=== PATIENT | male | born 1980 | race African-American/Black ===

== ENCOUNTER → 2017-12-05 15:46 | Outpatient (CLI) | payer OTHER, SELFPAY | PROVIDERS: Family Provider Family Medicine; PCP Family Medicine; Visit Provider Otolaryngology Otolaryngology/Facial Plastic Surgery | DX: J32.9 Chronic sinusitis, unspecified (principal) | CPT/HCPCS: 87070; 87077; 87186; 87205 ==

== ENCOUNTER → 2018-03-12 14:40 | Outpatient (CLI) | payer OTHER, SELFPAY ==
--- NOTE | 2018-03-12 14:40 | DT_ITS ---
This patient was seen during an EMR downtime March 11, 2018 - March 18, 2018. This patient may have a combination of paper and electronic documentation or all paper documentation. All documentation is viewable within the e-chart portion of [employer] for each patient visit.
--- NOTE | 2018-03-12 16:40 | CT_ITS ---
STUDY: CT MAXILLOFACIAL SINUSES REASON FOR EXAM: Male, 37 years old. Chronic bilateral sinus disease. RADIATION DOSAGE (If Supplied By Facility): CTDIvol = ( 33.06 ) mGy, DLP = ( 788.40 ) mGycm TECHNIQUE: The patient was scanned in a multi detector CT scanner. High resolution axial imaging was performed without the administration of intravenous contrast material. Sagittal and coronal images were reconstructed. Individualized dose optimization techniques were used for this CT. COMPARISON: None. FINDINGS: FRONTAL SINUSES: Normal aeration, without mucosal inflammatory disease. ETHMOIDAL SINUSES: There is opacification of right-sided ethmoid sinuses. Left-sided ethmoid sinuses appear to be clear. MAXILLARY SINUSES: There is right maxillary mucous retention cyst and/or polyp. There is mild right maxillary mucoperiosteal thickening. There is a small left maxillary mucous retention cyst. SPHENOIDAL SINUSES: Normal aeration, without mucosal inflammatory disease. There is occlusion of the right ostiomeatal complex. The left ostomy or complex is patent. There are selena bullosa of the bilateral turbinates. There is opacification of the right selena bullosa. Normal bilateral inferior turbinates. Normal midline nasal septum. There is patency of the bilateral nasal airways. The visualized osseous structures are normal. The visualized bilateral orbital contents are normal. CT/Sinus/Facial Bone IMPRESSION: Mild paranasal sinus disease, as described. Electronically Signed: Angela Hull MD at 10:50 EDT , Service support ,
== END ==
PROVIDERS: Family Provider Family Medicine; PCP Family Medicine; Visit Provider Otolaryngology Otolaryngology/Facial Plastic Surgery
DX: J32.9 Chronic sinusitis, unspecified (principal)
CPT/HCPCS: 70486

== ENCOUNTER → 2018-03-12 15:42 | Outpatient (CLI) | payer OTHER, SELFPAY ==
--- NOTE | 2018-03-12 15:42 | DT_ITS ---
This patient was seen during an EMR downtime March 11, 2018 - March 18, 2018. This patient may have a combination of paper and electronic documentation or all paper documentation. All documentation is viewable within the e-chart portion of [employer] for each patient visit.
== END ==
PROVIDERS: Family Provider Family Medicine; PCP Family Medicine; Visit Provider Otolaryngology Otolaryngology/Facial Plastic Surgery
DX: R69 Illness, unspecified (principal)

== ENCOUNTER → 2018-03-18 12:06 | Outpatient (CLI) | payer OTHER, SELFPAY ==
--- NOTE | 2018-03-18 12:06 | DT_ITS ---
This patient was seen during an EMR downtime March 11, 2018 - March 18, 2018. This patient may have a combination of paper and electronic documentation or all paper documentation. All documentation is viewable within the e-chart portion of [employer] for each patient visit.
[2018-03-18 12:54] LABS: Absolute Lymphocyte Count 3.02 X10^3/ul (0.83-4.51); Absolute Neutrophil Count 3.2 X10^3/uL (2.0-7.7); Basophil# 0.05 X10^3/uL; Basophil% 0.7 % (0-1); Eosinophil# 0.18 X10^3/uL; Eosinophils% 2.5 % (0-5); Hematocrit 45.5 % (40-54); Hemoglobin 15.6 g/dl (13.0-16.5); Lymphocyte # 3.02 X10^3/ul (4.0); Lymphocyte % 42.6 % (19-41); Mean Corp Hgb Conc 34.3 g/gl (32-36); Mean Corpuscular Hgb 34.1 pg (27.0-32.0); Mean Corpuscular Volume 99.3 fL (80-94); Mean Platelet Vol. 9.8 fl (6.2-12.0); Monocyte# 0.62 X10^3/uL; Monocyte% 8.7 % (0-10); Neutrophil % 45.2 % (47-70); Platelet Count 289 K/mm3 (150-450); RBC Distribution Width SD 43.5 fl (35.1-43.9); Red Blood Count 4.58 M/mm3 (4.6-6.2); White Blood Count 7.1 K/mm3 (4.4-11.0)
[2018-03-18 13:02] LABS: POSITIVE COUNT NO; POSITIVE DIFFERENTIAL NO; POSITIVE MORPHOLOGY NO
[2018-03-18 13:27] LABS: ALB/GLOB Ratio 0.8 RATIO (0.9-2.4); AST(SGOT) 24 U/L (15-37); Alanine Aminotransfer ALT/SGPT 27 U/L (16-61); Albumin, Serum 3.5 g/dL (3.2-5.0); Alkaline Phosphatase 73 U/L (45-117); Anion Gap 6 (5-15); BUN 12 mg/dL (7-18); BUN/Creat Ratio 10.5 RATIO (10-20); Calcium,Total 8.5 mg/dL (8.5-10.1); Chloride 106 mmol/L (98-107); Cholesterol 166 mg/dL (200); Creatinine, Serum 1.14 mg/dL (0.70-1.30); EST Glomerular Filtration Rate 77 mL/min (>60); Est Glom Filt Rate - Afr Amer 93 mL/min (>60); Globulin 4.3 g/dL (2.2-4.2); Glucose 95 mg/dL (74-106); High Density Lipoprotein 52 mg/dL; Potassium 4.1 mmol/L (3.5-5.1); Protein, Total 7.8 g/dL (6.4-8.2); Sodium Level 141 mmol/L (136-145); Triglycerides 87 mg/dL; Very Low Density Lipoprotein 17 mg/dL (5-40)
== END ==
PROVIDERS: Family Provider Internal Medicine; PCP Internal Medicine; Visit Provider Internal Medicine
DX: I10 Essential (primary) hypertension (principal)
CPT/HCPCS: 36415; 80053; 80061; 85025

== ENCOUNTER → 2018-03-29 12:32 | Outpatient (CLI) | payer OTHER, SELFPAY ==
[2018-03-29 13:54] LABS: Protein, Urine (Random) 13.5 mg/dL (<11.9); Protein:Creat Ratio 69 mg/g CRE (0-200)
[2018-03-29 14:23] LABS: Albumin, Serum 3.4 g/dL (3.2-5.0); BUN 12 mg/dL (7-18); BUN/Creat Ratio 10.2 RATIO (10-20); Calcium,Total 8.4 mg/dL (8.5-10.1); Chloride 105 mmol/L (98-107); Creatinine, Serum 1.18 mg/dL (0.70-1.30); EST Glomerular Filtration Rate 74 mL/min (>60); Est Glom Filt Rate - Afr Amer 89 mL/min (>60); Glucose 77 mg/dL (74-106); Phosphorus 3.5 mg/dL (2.5-4.9); Potassium 3.9 mmol/L (3.5-5.1); Sodium Level 137 mmol/L (136-145)
== END ==
PROVIDERS: Family Provider Internal Medicine; PCP Internal Medicine; Visit Provider Internal Medicine Nephrology
DX: N18.2 Chronic kidney disease, stage 2 (mild) (principal)
CPT/HCPCS: 36415; 80069; 82570; 84156

== ENCOUNTER 2018-04-07 13:54 | Emergency (ER) | payer OTHER, SELFPAY ==
[2018-04-07 13:55] VITALS: BP 152/84; PULSE 61; RESP 18; TEMP 36.6; O2SAT 98; BMI 39.9
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
[2018-04-07 15:55] VITALS: BP 142/86; PULSE 88; RESP 16; O2SAT 98
== END 2018-04-07 15:57 | disposition home or self-care (01) ==
PROVIDERS: Emergency Provider Emergency Medicine; Family Provider Internal Medicine; PCP Internal Medicine
DX: S16.1XXA Strain of muscle, fascia and tendon at neck level, initial encounter (principal); S80.01XA Contusion of right knee, initial encounter; Q74.1 Congenital malformation of knee; V49.49XA Driver injured in collision with other motor vehicles in traffic accident, initial encounter; Y93.9 Activity, unspecified; Y92.9 Unspecified place or not applicable; I10 Essential (primary) hypertension; F32.9 Major depressive disorder, single episode, unspecified; F41.9 Anxiety disorder, unspecified; B20 Human immunodeficiency virus [HIV] disease; Z87.19 Personal history of other diseases of the digestive system; Z79.899 Other long term (current) drug therapy
CPT/HCPCS: 71046; 72040; 73564; 99282

== ENCOUNTER → 2018-05-09 12:04 | Outpatient (CLI) | payer OTHER, SELFPAY ==
[2018-05-09 12:33] LABS: Hematocrit 43.9 % (40-54); Hemoglobin 14.7 g/dl (13.0-16.5); Mean Corp Hgb Conc 33.5 g/gl (32-36); Mean Corpuscular Hgb 33.8 pg (27.0-32.0); Mean Corpuscular Volume 100.9 fL (80-94); Mean Platelet Vol. 9.7 fl (6.2-12.0); Platelet Count 259 K/mm3 (150-450); RBC Distribution Width CV 12.4 % (11.6-14.6); RBC Distribution Width SD 45.3 fl (35.1-43.9); Red Blood Count 4.35 M/mm3 (4.6-6.2); White Blood Count 6.4 K/mm3 (4.4-11.0)
[2018-05-09 12:34] LABS: Scan Indicated on CBC? Y/N NO
[2018-05-09 13:02] LABS: AST(SGOT) 26 U/L (15-37); Alanine Aminotransfer ALT/SGPT 32 U/L (16-61); Albumin, Serum 3.7 g/dL (3.2-5.0); Alkaline Phosphatase 74 U/L (45-117); Anion Gap 5 (5-15); BUN 14 mg/dL (7-18); BUN/Creat Ratio 10.8 RATIO (10-20); Bilirubin, Direct 0.13 mg/dL (0.00-0.30); Calcium,Total 8.6 mg/dL (8.5-10.1); Chloride 106 mmol/L (98-107); Cholesterol 161 mg/dL (200); EST Glomerular Filtration Rate 66 mL/min (>60); Est Glom Filt Rate - Afr Amer 80 mL/min (>60); Globulin 4.1 g/dL (2.2-4.2); Glucose 97 mg/dL (74-106); High Density Lipoprotein 55 mg/dL; Protein, Total 7.8 g/dL (6.4-8.2); Sodium Level 140 mmol/L (136-145); Triglycerides 84 mg/dL; Very Low Density Lipoprotein 17 mg/dL (5-40)
[2018-05-09 15:22] LABS: Chlamydia Trachomatis by PCR Negative (Negative); Neisserai gonorrhoeae by PCR Negative (Negative); Probe Check PASS; Sample Adequacy Control PASS; Specimen Processing Control PASS
[2018-05-10 20:09] LABS: Absolute CD4 Helper 587 /uL (359-1519); Basophils (Absolute) 0 x10E3/uL (0.0-0.2); Eosinophils 3 % (Not Estab.); Eosinophils (Absolute) 0.2 x10E3/uL (0.0-0.4); Hemoglobin 14.7 g/dL (13.0-17.7); Immature Granulocytes 0 % (Not Estab.); Lymphs 36 % (Not Estab.); Lymphs (Absolute) 2.3 x10E3/uL (0.7-3.1); MCH 33.9 pg (26.6-33.0); MCHC 33.4 g/dL (31.5-35.7); MCV 101 fL (79-97); Monocytes 10 % (Not Estab.); Monocytes (Absolute) 0.6 x10E3/uL (0.1-0.9); Neutrophils 51 % (Not Estab.); Neutrophils (Absolute) 3.2 x10E3/uL (1.4-7.0); Percent % CD4 Pos. Lymph. 25.5 % (30.8-58.5); Platelets 292 x10E3/uL (150-379); RBC Count 4.34 x10E6/uL (4.14-5.80); RDW 12.8 % (12.3-15.4); WBC Count 6.4 x10E3/uL (3.4-10.8)
[2018-05-11 13:14] LABS: Immature Granulocytes Absolute 0 x10E3/uL (0.0-0.1)
[2018-05-13 13:39] LABS: HIV-1 RNA by PCR, Quant. < 20 copies/mL (.)
== END ==
PROVIDERS: Family Provider Internal Medicine; PCP Internal Medicine; Visit Provider Internal Medicine Infectious Disease
DX: B20 Human immunodeficiency virus [HIV] disease (principal)
CPT/HCPCS: 36415; 80048; 80061; 80076; 85027; 86361; 87491; 87536; 87591

== ENCOUNTER → 2018-07-15 10:07 | Outpatient (CLI) | payer OTHER, SELFPAY ==
--- NOTE | 2018-07-15 10:09 | RAD_ITS ---
STUDY: X-RAY - LEFT KNEE REASON FOR EXAM: Knee pain, no specific injury. TECHNIQUE: 4 view(s) of the knee. COMPARISON: None. FINDINGS: Normal visualized distal femur. Normal visualized proximal tibia and fibula. Normal proximal tibiofibular articulation. Normal medial femorotibial compartment. Normal lateral femorotibial compartment. Normal patellofemoral articulation. The soft tissue structures are unremarkable. RAD/Knee 4 or More Views IMPRESSION: Normal x-ray examination of the left knee. Electronically Signed: Rohit Avelar MD at 16:00 EDT Tel , Service support ,
== END ==
PROVIDERS: Family Provider Internal Medicine; PCP Internal Medicine; Referring Provider Physician Assistant; Visit Provider Physician Assistant
DX: M25.562 Pain in left knee (principal)
CPT/HCPCS: 73564

== ENCOUNTER 2018-08-09 07:31 | Emergency (ER) | payer OTHER, SELFPAY ==
[2018-08-09 07:33] VITALS: BP 167/103; PULSE 61; RESP 18; TEMP 35.8; O2SAT 99; BMI 39.1
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
[2018-08-09 08:19] LABS: QC Malaria Lot#/Exp Date RECORD LOT#/EXP DATE
[2018-08-09 08:58] LABS: Absolute Lymphocyte Count 1.82 X10^3/ul (0.83-4.51); Absolute Neutrophil Count 9.9 X10^3/uL (2.0-7.7); Basophil# 0.01 X10^3/uL; Basophil% 0.1 % (0-1); Eosinophil# 0.01 X10^3/uL; Eosinophils% 0.1 % (0-5); Hematocrit 45.8 % (40-54); Hemoglobin 15.3 g/dl (13.0-16.5); Lymphocyte # 1.82 X10^3/ul (4.0); Lymphocyte % 14.7 % (19-41); Mean Corp Hgb Conc 33.4 g/gl (32-36); Mean Corpuscular Hgb 33.4 pg (27.0-32.0); Mean Platelet Vol. 10.1 fl (6.2-12.0); Monocyte# 0.57 X10^3/uL; Monocyte% 4.6 % (0-10); Neutrophil # 9.87 X10^3/uL (2.7-7.7); POSITIVE COUNT NO; POSITIVE DIFFERENTIAL NO; POSITIVE MORPHOLOGY NO; Platelet Count 302 K/mm3 (150-450); RBC Distribution Width CV 12.4 % (11.6-14.6); RBC Distribution Width SD 45.4 fl (35.1-43.9); Red Blood Count 4.58 M/mm3 (4.6-6.2); White Blood Count 12.3 K/mm3 (4.4-11.0)
[2018-08-09 14:11] LABS: Malaria Blood Parasite Interp Negative (Negative)
[2018-08-09 14:16] LABS: Pathologist Review Reviewed
[2018-08-09 14:17] LABS: Malaria QC Review PASSED
== END 2018-08-09 08:20 | disposition home or self-care (01) ==
LOC: ED 07:53
PROVIDERS: Emergency Provider Emergency Medicine; Family Provider Internal Medicine; PCP Internal Medicine
DX: R61 Generalized hyperhidrosis (principal); Z20.7 Contact with and (suspected) exposure to pediculosis, acariasis and other infestations; R51 Headache; I10 Essential (primary) hypertension; B20 Human immunodeficiency virus [HIV] disease; Z79.899 Other long term (current) drug therapy; Z72.0 Tobacco use
CPT/HCPCS: 85025; 87207; 99282

== ENCOUNTER → 2018-08-30 13:42 | Outpatient (CLI) | payer OTHER, SELFPAY ==
[2018-08-09 07:33] VITALS: BMI 39.1
== END ==
PROVIDERS: Family Provider Internal Medicine; PCP Internal Medicine; Referring Provider Otolaryngology Otolaryngology/Facial Plastic Surgery; Visit Provider Otolaryngology Otolaryngology/Facial Plastic Surgery
DX: J32.9 Chronic sinusitis, unspecified (principal)
CPT/HCPCS: 87070; 87205

== ENCOUNTER → 2018-09-17 13:13 | Outpatient (CLI) | payer OTHER, SELFPAY ==
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
== END ==
PROVIDERS: Family Provider Internal Medicine; PCP Internal Medicine; Referring Provider Otolaryngology; Visit Provider Otolaryngology
DX: J32.9 Chronic sinusitis, unspecified (principal)
CPT/HCPCS: 70486

== ENCOUNTER → 2018-10-07 12:27 | Outpatient (CLI) | payer OTHER, SELFPAY ==
[2018-10-07 13:33] LABS: Protein, Urine (Random) 14.6 mg/dL (<11.9); Protein:Creat Ratio 79 mg/g CRE (0-200)
[2018-10-07 13:53] LABS: Albumin, Serum 3.5 g/dL (3.2-5.0); BUN 11 mg/dL (7-18); BUN/Creat Ratio 8.8 RATIO (10-20); Calcium,Total 8.6 mg/dL (8.5-10.1); Chloride 101 mmol/L (98-107); Creatinine, Serum 1.25 mg/dL (0.70-1.30); EST Glomerular Filtration Rate 69 mL/min (>60); Est Glom Filt Rate - Afr Amer 83 mL/min (>60); Glucose 92 mg/dL (74-106); Phosphorus 3.6 mg/dL (2.5-4.9); Potassium 3.8 mmol/L (3.5-5.1); Sodium Level 140 mmol/L (136-145)
== END ==
LOC: LAB 12:29
PROVIDERS: Family Provider Internal Medicine; PCP Internal Medicine; Referring Provider Internal Medicine Nephrology; Visit Provider Internal Medicine Nephrology
DX: N18.2 Chronic kidney disease, stage 2 (mild) (principal)
CPT/HCPCS: 36415; 80069; 82570; 84156

== ENCOUNTER → 2018-11-13 13:57 | Outpatient (CLI) | payer OTHER, SELFPAY ==
[2018-11-08 13:55] VITALS: BMI 41.2
[2018-11-13 14:25] LABS: Hematocrit 45.5 % (40-54); Hemoglobin 15.3 g/dl (13.0-16.5); Mean Corp Hgb Conc 33.6 g/gl (32-36); Mean Corpuscular Hgb 33.1 pg (27.0-32.0); Mean Corpuscular Volume 98.5 fL (80-94); Mean Platelet Vol. 9.5 fl (6.2-12.0); Platelet Count 298 K/mm3 (150-450); RBC Distribution Width CV 11.8 % (11.6-14.6); RBC Distribution Width SD 41.9 fl (35.1-43.9); Red Blood Count 4.62 M/mm3 (4.6-6.2); Scan Indicated on CBC? Y/N NO; White Blood Count 8.4 K/mm3 (4.4-11.0)
[2018-11-13 14:50] LABS: AST(SGOT) 27 U/L (15-37); Alanine Aminotransfer ALT/SGPT 38 U/L (16-61); Albumin, Serum 3.8 g/dL (3.2-5.0); Alkaline Phosphatase 68 U/L (45-117); Anion Gap 7 (5-15); BUN 13 mg/dL (7-18); BUN/Creat Ratio 10.6 RATIO (10-20); Bilirubin, Direct 0.19 mg/dL (0.00-0.30); Calcium,Total 8.9 mg/dL (8.5-10.1); Chloride 105 mmol/L (98-107); Creatinine, Serum 1.23 mg/dL (0.70-1.30); EST Glomerular Filtration Rate 70 mL/min (>60); Est Glom Filt Rate - Afr Amer 85 mL/min (>60); Glucose 101 mg/dL (74-106); Potassium 3.9 mmol/L (3.5-5.1); Protein, Total 7.8 g/dL (6.4-8.2); Sodium Level 138 mmol/L (136-145)
[2018-11-14 20:19] LABS: Absolute CD4 Helper 600 /uL (359-1519); Basophils (Absolute) 0 x10E3/uL (0.0-0.2); Eosinophils 1 % (Not Estab.); Eosinophils (Absolute) 0.1 x10E3/uL (0.0-0.4); Hematocrit 42.9 % (37.5-51.0); Hemoglobin 15.3 g/dL (13.0-17.7); Immature Granulocytes 0 % (Not Estab.); Immature Granulocytes Absolute 0 x10E3/uL (0.0-0.1); Lymphs 27 % (Not Estab.); Lymphs (Absolute) 2.5 x10E3/uL (0.7-3.1); MCH 34.1 pg (26.6-33.0); MCHC 35.7 g/dL (31.5-35.7); MCV 96 fL (79-97); Monocytes 7 % (Not Estab.); Monocytes (Absolute) 0.6 x10E3/uL (0.1-0.9); Neutrophils 65 % (Not Estab.); Neutrophils (Absolute) 6.1 x10E3/uL (1.4-7.0); Platelets 312 x10E3/uL (150-379); RBC Count 4.49 x10E6/uL (4.14-5.80); RDW 12.8 % (12.3-15.4); WBC Count 9.4 x10E3/uL (3.4-10.8)
[2018-11-14 23:34] LABS: Rapid Plasmin Reagin (RPR) NONREACTIVE (NONREACTIVE)
[2018-11-15 16:38] LABS: HIV-1 RNA by PCR, Quant. < 20 copies/mL (.)
[2018-11-15 16:55] LABS: Hep B Surface Antibodies Non Reactive (.); Hep C Antibodies <0.1 s/co ratio (0.0-0.9)
== END ==
PROVIDERS: Family Provider Internal Medicine; PCP Internal Medicine; Referring Provider Internal Medicine Infectious Disease; Visit Provider Internal Medicine Infectious Disease
DX: B20 Human immunodeficiency virus [HIV] disease (principal)
CPT/HCPCS: 36415; 80048; 80076; 85027; 86361; 86592; 86706; 86803; 87536

== ENCOUNTER → 2018-12-18 17:31 | Outpatient (CLI) | payer OTHER, SELFPAY ==
[2018-11-08 13:55] VITALS: BMI 41.2
== END ==
PROVIDERS: Family Provider Internal Medicine; PCP Internal Medicine; Referring Provider Otolaryngology Otolaryngology/Facial Plastic Surgery; Visit Provider Otolaryngology Otolaryngology/Facial Plastic Surgery
DX: J32.9 Chronic sinusitis, unspecified (principal)
CPT/HCPCS: 87070; 87205

== ENCOUNTER → 2019-03-20 | Outpatient (CLI) | payer OTHER, SELFPAY ==
[2018-12-19 15:28] VITALS: BMI 41.2
[2019-03-20 12:35] LABS: Hemoglobin 14.6 g/dl (13.0-16.5); Mean Corpuscular Hgb 33.3 pg (27.0-32.0); Mean Corpuscular Volume 97.9 fL (80-94); Mean Platelet Vol. 9.5 fl (6.2-12.0); Platelet Count 269 K/mm3 (150-450); RBC Distribution Width CV 12.5 % (11.6-14.6); RBC Distribution Width SD 45.1 fl (35.1-43.9); Red Blood Count 4.39 M/mm3 (4.6-6.2); White Blood Count 5.3 K/mm3 (4.4-11.0)
[2019-03-20 12:40] LABS: Scan Indicated on CBC? Y/N NO
[2019-03-20 12:59] LABS: AST(SGOT) 22 U/L (15-37); Alanine Aminotransfer ALT/SGPT 32 U/L (16-61); Albumin, Serum 3.4 g/dL (3.2-5.0); Alkaline Phosphatase 75 U/L (45-117); Anion Gap 2 (5-15); BUN 10 mg/dL (7-18); BUN/Creat Ratio 8.5 RATIO (10-20); Bilirubin, Direct 0.14 mg/dL (0.00-0.30); Calcium,Total 8.8 mg/dL (8.5-10.1); Chloride 107 mmol/L (98-107); Creatinine, Serum 1.18 mg/dL (0.70-1.30); EST Glomerular Filtration Rate 73 mL/min (>60); Est Glom Filt Rate - Afr Amer 89 mL/min (>60); Glucose 98 mg/dL (74-106); Potassium 3.9 mmol/L (3.5-5.1); Protein, Total 7.4 g/dL (6.4-8.2); Sodium Level 138 mmol/L (136-145)
[2019-03-21 14:06] LABS: Absolute CD4 Helper 517 /uL (359-1519); Basophils (Absolute) 0 x10E3/uL (0.0-0.2); Eosinophils 2 % (Not Estab.); Eosinophils (Absolute) 0.1 x10E3/uL (0.0-0.4); Hematocrit 41.5 % (37.5-51.0); Hemoglobin 14.5 g/dL (13.0-17.7); Immature Granulocytes 0 % (Not Estab.); Lymphs 40 % (Not Estab.); Lymphs (Absolute) 2.1 x10E3/uL (0.7-3.1); MCH 34.1 pg (26.6-33.0); MCHC 34.9 g/dL (31.5-35.7); MCV 98 fL (79-97); Monocytes 11 % (Not Estab.); Monocytes (Absolute) 0.6 x10E3/uL (0.1-0.9); Neutrophils 47 % (Not Estab.); Neutrophils (Absolute) 2.4 x10E3/uL (1.4-7.0); Percent % CD4 Pos. Lymph. 24.6 % (30.8-58.5); Platelets 309 x10E3/uL (150-450); RBC Count 4.25 x10E6/uL (4.14-5.80); RDW 12.6 % (12.3-15.4); WBC Count 5.2 x10E3/uL (3.4-10.8)
[2019-03-21 15:39] LABS: Immature Granulocytes Absolute 0 x10E3/uL (0.0-0.1)
[2019-03-23 15:19] LABS: HIV-1 RNA by PCR, Quant. < 20 copies/mL (.)
== END | disposition home or self-care (01) ==
LOC: LAB 12:11
PROVIDERS: Family Provider Internal Medicine; PCP Internal Medicine; Referring Provider Internal Medicine Infectious Disease; Visit Provider Internal Medicine Infectious Disease
DX: B20 Human immunodeficiency virus [HIV] disease (principal)
CPT/HCPCS: 36415; 80048; 80076; 85027; 86361; 87536

== ENCOUNTER → 2019-03-25 | Outpatient (CLI) | payer OTHER, SELFPAY ==
[2018-12-19 15:28] VITALS: BMI 41.2
[2019-03-25 14:47] LABS: Bacteria 0 SEEN /hpf (None Seen); Mucous, Urine 0 SEEN /hpf (<or=2+); Red Blood Cells-Urine 0 SEEN /hpf (0-5); White Blood Cells 0 SEEN /hpf (0-5)
[2019-03-25 15:46] LABS: Color, Urine Yellow (Yellow); Glucose, Dipstick Normal (Normal); Ketone-Dipstick Negative (Negative); Leukocyte Esterase-Dipstick Negative /ul (Negative); Nitrite-Dipstick Negative (Negative); Occult Blood-Urine Negative /ul (Negative); Protein-Dipstick Negative (Negative); Specific Gravity, Urine 1.025 (1.002-1.030); Urine Bilirubin Dipstick Negative (Negative); Urine Clarity Clear (Clear); Urine Urobilinogen 1 mg/dl (Normal)
[2019-03-25 15:56] LABS: Squamous Epithelial Cells - UA 0-5 SEEN /hpf (0-5)
== END | disposition home or self-care (01) ==
LOC: LAB 14:43
PROVIDERS: Family Provider Internal Medicine; PCP Internal Medicine; Referring Provider Internal Medicine Infectious Disease; Visit Provider Internal Medicine Infectious Disease
DX: B20 Human immunodeficiency virus [HIV] disease (principal)
CPT/HCPCS: 81001; 87086

== ENCOUNTER → 2019-04-22 | Outpatient (CLI) | payer OTHER, SELFPAY ==
[2018-12-19 15:28] VITALS: BMI 41.2
[2019-04-22 14:45] LABS: Protein, Urine (Random) 17.4 mg/dL (<11.9); Protein:Creat Ratio 93 mg/g CRE (0-200)
[2019-04-22 14:55] LABS: Albumin, Serum 3.6 g/dL (3.2-5.0); BUN 14 mg/dL (7-18); Chloride 106 mmol/L (98-107); Creatinine, Serum 1.27 mg/dL (0.70-1.30); EST Glomerular Filtration Rate 67 mL/min (>60); Est Glom Filt Rate - Afr Amer 81 mL/min (>60); Glucose 133 mg/dL (74-106); Phosphorus 2.4 mg/dL (2.5-4.9); Potassium 3.9 mmol/L (3.5-5.1); Sodium Level 136 mmol/L (136-145)
== END | disposition home or self-care (01) ==
LOC: LAB 14:12
PROVIDERS: Family Provider Internal Medicine; PCP Internal Medicine; Referring Provider Internal Medicine Nephrology; Visit Provider Internal Medicine Nephrology
DX: N18.2 Chronic kidney disease, stage 2 (mild) (principal)
CPT/HCPCS: 36415; 80069; 82570; 84156

== ENCOUNTER → 2019-06-30 10:34 | Outpatient (CLI) | payer OTHER, SELFPAY ==
[2019-06-30 10:21] VITALS: BMI 41.2
[2019-06-30 12:43] LABS: Hemoglobin A1c 4.9 % (4.2-6.3)
[2019-06-30 12:45] LABS: Cholesterol 198 mg/dL (200); High Density Lipoprotein 56 mg/dL; Triglycerides 95 mg/dL; Very Low Density Lipoprotein 19 mg/dL (5-40)
== END ==
LOC: BIMLAB 10:34
PROVIDERS: Family Provider Internal Medicine; PCP Internal Medicine; Visit Provider Internal Medicine
DX: E66.01 Morbid (severe) obesity due to excess calories (principal); Z68.41 Body mass index [BMI] 40.0-44.9, adult; I10 Essential (primary) hypertension
CPT/HCPCS: 36415; 80061; 83036

== ENCOUNTER → 2019-08-12 11:57 | Outpatient (CLI) | payer OTHER, SELFPAY ==
[2019-06-30 10:21] VITALS: BMI 41.2
--- NOTE | 2019-08-12 11:59 | EKG12_ITS ---
Test Reason : ROUTINE Blood Pressure : / mmHG Vent. Rate : 052 BPM Atrial Rate : 052 BPM P-R Int : 162 ms QRS Dur : 086 ms QT Int : 422 ms P-R-T Axes : -05 028 020 degrees QTc Int : 392 ms Sinus bradycardia Otherwise normal ECG Confirmed by WYATT DUNN, JAMEL ([id number]), film or videotape editor HAO DREW ([id number]) on 08/13/2019 11:15:44 AM Referred By: Malathi Perez Confirmed By:JAMEL SCHNEIDER MD
== END ==
LOC: CVS 11:58
PROVIDERS: Family Provider Internal Medicine; PCP Internal Medicine; Referring Provider Internal Medicine; Visit Provider Internal Medicine
DX: I10 Essential (primary) hypertension (principal)
CPT/HCPCS: 93005

== ENCOUNTER → 2019-10-02 | Outpatient (CLI) | payer OTHER, SELFPAY ==
[2019-09-29 11:08] VITALS: BMI 43.2
[2019-10-02 13:59] LABS: Hematocrit 44.3 % (40-54); Hemoglobin 15.2 g/dL (13.0-16.5); Mean Corp Hgb Conc 34.3 g/dL (32-36); Mean Corpuscular Hgb 34.1 pg (27.0-32.0); Mean Corpuscular Volume 99.3 fL (80-94); Mean Platelet Vol. 10.2 fl (6.2-12.0); Platelet Count 269 K/mm3 (150-450); RBC Distribution Width CV 11.9 % (11.6-14.6); RBC Distribution Width SD 43.3 fl (35.1-43.9); Red Blood Count 4.46 M/mm3 (4.6-6.2); White Blood Count 6.2 K/mm3 (4.4-11.0)
[2019-10-02 14:13] LABS: AST(SGOT) 33 U/L (15-37); Alanine Aminotransfer ALT/SGPT 55 U/L (16-61); Albumin, Serum 3.3 g/dL (3.2-5.0); Alkaline Phosphatase 73 U/L (45-117); Anion Gap 3 (5-15); BUN 13 mg/dL (7-18); BUN/Creat Ratio 10.8 RATIO (10-20); Bilirubin, Direct 0.12 mg/dL (0.00-0.30); Calcium,Total 8.5 mg/dL (8.5-10.1); Chloride 108 mmol/L (98-107); Cholesterol 169 mg/dL (200); EST Glomerular Filtration Rate 72 mL/min (>60); Est Glom Filt Rate - Afr Amer 87 mL/min (>60); Glucose 102 mg/dL (74-106); High Density Lipoprotein 45 mg/dL; Potassium 3.8 mmol/L (3.5-5.1); Protein, Total 7.3 g/dL (6.4-8.2); Sodium Level 141 mmol/L (136-145); Triglycerides 104 mg/dL; Very Low Density Lipoprotein 21 mg/dL (5-40)
[2019-10-02 18:48] LABS: Chlamydia Trachomatis by PCR Negative (Negative); Neisserai gonorrhoeae by PCR Negative (Negative); Probe Check PASS; Sample Adequacy Control PASS; Specimen Processing Control PASS
[2019-10-06 13:08] LABS: HIV-1 RNA by PCR, Quant. 20 copies/mL (.); LOG10 HIV-1 RNA 1.301 (.)
[2019-10-09 02:23] LABS: Rapid Plasmin Reagin (RPR) NONREACTIVE (NONREACTIVE)
== END | disposition home or self-care (01) ==
LOC: MTLAB 12:19
PROVIDERS: Family Provider Internal Medicine; PCP Internal Medicine; Referring Provider Internal Medicine Infectious Disease; Visit Provider Internal Medicine Infectious Disease
DX: B20 Human immunodeficiency virus [HIV] disease (principal)
CPT/HCPCS: 36415; 80048; 80061; 80076; 85027; 86592; 87491; 87536; 87591

== ENCOUNTER → 2019-11-14 11:21 | Outpatient (CLI) | payer OTHER, SELFPAY ==
[2019-11-10 15:14] VITALS: BMI 43.2
[2019-11-15 16:08] LABS: Absolute CD4 Helper 626 /uL (359-1519); Basophils (Absolute) 0 x10E3/uL (0.0-0.2); Eosinophils 3 % (Not Estab.); Eosinophils (Absolute) 0.2 x10E3/uL (0.0-0.4); Hematocrit 44.9 % (37.5-51.0); Hemoglobin 14.8 g/dL (13.0-17.7); Immature Granulocytes 0 % (Not Estab.); Lymphs 35 % (Not Estab.); Lymphs (Absolute) 2.4 x10E3/uL (0.7-3.1); MCH 32.9 pg (26.6-33.0); MCV 100 fL (79-97); Monocytes 12 % (Not Estab.); Monocytes (Absolute) 0.8 x10E3/uL (0.1-0.9); Neutrophils 50 % (Not Estab.); Neutrophils (Absolute) 3.3 x10E3/uL (1.4-7.0); Percent % CD4 Pos. Lymph. 26.1 % (30.8-58.5); Platelets 311 x10E3/uL (150-450); RDW 11.4 % (11.6-15.4); WBC Count 6.8 x10E3/uL (3.4-10.8)
[2019-11-17 11:39] LABS: Immature Granulocytes Absolute 0 x10E3/uL (0.0-0.1)
== END ==
PROVIDERS: PCP Internal Medicine; Referring Provider Internal Medicine; Visit Provider Internal Medicine
DX: B20 Human immunodeficiency virus [HIV] disease (principal)
CPT/HCPCS: 36415; 86361

== ENCOUNTER → 2020-03-19 13:23 | Outpatient (CLI) | payer MEDICAID, SELFPAY ==
[2020-03-19 13:07] VITALS: BMI 43.2
[2020-03-19 15:37] LABS: Anion Gap 3 (5-15); BUN 13 mg/dL (7-18); BUN/Creat Ratio 10.5 RATIO (10-20); Calcium,Total 8.8 mg/dL (8.5-10.1); Chloride 105 mmol/L (98-107); Creatinine, Serum 1.24 mg/dL (0.70-1.30); EST Glomerular Filtration Rate 69 mL/min (>60); Est Glom Filt Rate - Afr Amer 83 mL/min (>60); Glucose 114 mg/dL (74-106); Sodium Level 139 mmol/L (136-145)
== END ==
PROVIDERS: PCP Internal Medicine; Referring Provider Internal Medicine; Visit Provider Internal Medicine
DX: I10 Essential (primary) hypertension (principal)
CPT/HCPCS: 36415; 80048

== ENCOUNTER → 2020-04-26 13:02 | Outpatient (CLI) | payer MEDICAID, SELFPAY ==
[2020-03-19 13:07] VITALS: BMI 43.2
[2020-04-26 15:45] LABS: Albumin, Serum 3.4 g/dL (3.2-5.0); BUN 11 mg/dL (7-18); BUN/Creat Ratio 8.9 RATIO (10-20); Calcium,Total 8.4 mg/dL (8.5-10.1); Chloride 106 mmol/L (98-107); Creatinine, Serum 1.23 mg/dL (0.70-1.30); EST Glomerular Filtration Rate 69 mL/min (>60); Est Glom Filt Rate - Afr Amer 84 mL/min (>60); Glucose 100 mg/dL (74-106); Phosphorus 3.3 mg/dL (2.5-4.9); Potassium 4.1 mmol/L (3.5-5.1); Sodium Level 137 mmol/L (136-145)
== END ==
PROVIDERS: PCP Internal Medicine; Referring Provider Internal Medicine Nephrology; Visit Provider Internal Medicine Nephrology
DX: N18.2 Chronic kidney disease, stage 2 (mild) (principal)
CPT/HCPCS: 36415; 80069

== ENCOUNTER → 2020-04-27 12:02 | Outpatient (CLI) | payer MEDICAID, SELFPAY ==
[2020-03-19 13:07] VITALS: BMI 43.2
[2020-04-27 13:01] LABS: Protein, Urine (Random) 16.8 mg/dL (<11.9); Protein:Creat Ratio 66 mg/g CRE (0-200)
== END ==
PROVIDERS: PCP Internal Medicine; Visit Provider Internal Medicine Nephrology
DX: N18.2 Chronic kidney disease, stage 2 (mild) (principal)
CPT/HCPCS: 36415; 82570; 84156

== ENCOUNTER → 2020-05-06 12:07 | Outpatient (CLI) | payer MEDICAID, SELFPAY ==
[2020-03-19 13:07] VITALS: BMI 43.2
[2020-05-06 16:00] LABS: Hematocrit 41.3 % (40-54); Hemoglobin 13.7 g/dL (13.0-16.5); Mean Corp Hgb Conc 33.2 g/dL (32-36); Mean Corpuscular Hgb 33.5 pg (27.0-32.0); Mean Platelet Vol. 10.7 fl (6.2-12.0); Platelet Count 263 K/mm3 (150-450); RBC Distribution Width CV 11.9 % (11.6-14.6); RBC Distribution Width SD 44.6 fl (35.1-43.9); Red Blood Count 4.09 M/mm3 (4.6-6.2); White Blood Count 7.1 K/mm3 (4.4-11.0)
[2020-05-06 16:41] LABS: AST(SGOT) 27 U/L (15-37); Alanine Aminotransfer ALT/SGPT 37 U/L (16-61); Albumin, Serum 3.5 g/dL (3.2-5.0); Alkaline Phosphatase 77 U/L (45-117); Anion Gap 3 (5-15); BUN 13 mg/dL (7-18); BUN/Creat Ratio 10.7 RATIO (10-20); Bilirubin, Direct 0.13 mg/dL (0.00-0.30); Calcium,Total 8.3 mg/dL (8.5-10.1); Chloride 106 mmol/L (98-107); Creatinine, Serum 1.22 mg/dL (0.70-1.30); EST Glomerular Filtration Rate 70 mL/min (>60); Est Glom Filt Rate - Afr Amer 85 mL/min (>60); Glucose 100 mg/dL (74-106); Protein, Total 7.5 g/dL (6.4-8.2); Sodium Level 138 mmol/L (136-145)
[2020-05-07 10:07] LABS: Hepatitis B Surface Antibody Non-Reactive
[2020-05-08 16:07] LABS: Absolute CD4 Helper 711 /uL (359-1519); Basophils (Absolute) 0 x10E3/uL (0.0-0.2); Eosinophils 2 % (Not Estab.); Eosinophils (Absolute) 0.2 x10E3/uL (0.0-0.4); Hematocrit 42.6 % (37.5-51.0); Hemoglobin 14.2 g/dL (13.0-17.7); Immature Granulocytes 0 % (Not Estab.); Lymphs 41 % (Not Estab.); Lymphs (Absolute) 2.8 x10E3/uL (0.7-3.1); MCH 34.5 pg (26.6-33.0); MCHC 33.3 g/dL (31.5-35.7); MCV 104 fL (79-97); Monocytes 10 % (Not Estab.); Monocytes (Absolute) 0.7 x10E3/uL (0.1-0.9); Neutrophils 47 % (Not Estab.); Neutrophils (Absolute) 3.2 x10E3/uL (1.4-7.0); Percent % CD4 Pos. Lymph. 25.4 % (30.8-58.5); Platelets 260 x10E3/uL (150-450); RBC Count 4.11 x10E6/uL (4.14-5.80); RDW 11.8 % (11.6-15.4); WBC Count 6.9 x10E3/uL (3.4-10.8)
[2020-05-09 05:58] LABS: Immature Granulocytes Absolute 0 x10E3/uL (0.0-0.1)
[2020-05-10 04:41] LABS: HIV-1 RNA by PCR, Quant. < 20 copies/mL (.)
== END ==
PROVIDERS: PCP Internal Medicine; Referring Provider Internal Medicine Infectious Disease; Visit Provider Internal Medicine Infectious Disease
DX: B20 Human immunodeficiency virus [HIV] disease (principal)
CPT/HCPCS: 36415; 80048; 80076; 85027; 86361; 86706; 87536

== ENCOUNTER → 2020-05-12 09:56 | Outpatient (CLI) | payer MEDICAID, SELFPAY ==
[2020-03-19 13:07] VITALS: BMI 43.2
[2020-05-11 17:37] VITALS: BMI 43.2
[2020-05-12 10:00] LABS: Bacteria 0 SEEN /hpf (None Seen); Color, Urine Yellow (Yellow); Glucose, Dipstick Normal (Normal); Ketone-Dipstick Negative (Negative); Leukocyte Esterase-Dipstick Negative /ul (Negative); Mucous, Urine 0 SEEN /hpf (<or=2+); Nitrite-Dipstick Negative (Negative); Occult Blood-Urine Negative /ul (Negative); Protein-Dipstick Negative (Negative); Red Blood Cells-Urine 0 SEEN /hpf (0-5); Squamous Epithelial Cells - UA 0 SEEN /hpf (0-5); Urine Bilirubin Dipstick Negative (Negative); Urine Clarity Clear (Clear); Urine Urobilinogen 1 mg/dl (Normal); White Blood Cells 0 SEEN /hpf (0-5)
== END ==
PROVIDERS: Physician Assistant Surgical; PCP Internal Medicine; Visit Provider Internal Medicine Nephrology
DX: N18.2 Chronic kidney disease, stage 2 (mild) (principal)
CPT/HCPCS: 81001; 87086

== ENCOUNTER → 2020-07-13 20:14 | Outpatient (CLI) | payer MEDICAID, SELFPAY ==
[2020-06-18 13:32] VITALS: BMI 43.2
== END ==
PROVIDERS: PCP Internal Medicine; Visit Provider Nurse Practitioner Family
DX: G47.33 Obstructive sleep apnea (adult) (pediatric) (principal)
CPT/HCPCS: 95811

== ENCOUNTER → 2020-09-28 09:38 | Outpatient (CLI) | payer MEDICAID, SELFPAY ==
[2020-09-28 09:18] VITALS: BMI 45.1
[2020-09-28 12:28] LABS: Absolute Lymphocyte Count 2.69 X10^3/uL (0.83-4.51); Absolute Neutrophil Count 2.9 X10^3/uL (2.0-7.7); Basophil# 0.04 X10^3/uL; Basophil% 0.6 % (0-1); Eosinophil# 0.26 X10^3/uL; Eosinophils% 3.9 % (0-5); Hematocrit 45.1 % (40-54); Hemoglobin 15.1 g/dL (13.0-16.5); Lymphocyte # 2.69 X10^3/ul (4.0); Lymphocyte % 40.1 % (19-41); Mean Corp Hgb Conc 33.5 g/dL (32-36); Mean Corpuscular Hgb 33.8 pg (27.0-32.0); Mean Corpuscular Volume 100.9 fL (80-94); Mean Platelet Vol. 10.7 fl (6.2-12.0); Monocyte# 0.79 X10^3/uL; Monocyte% 11.8 % (0-10); NRBC Flagged by Analyzer 0 % (0-5); Neutrophil % 43.2 % (47-70); Platelet Count 292 K/mm3 (150-450); RBC Distribution Width CV 12.3 % (11.6-14.6); RBC Distribution Width SD 46.2 fl (35.1-43.9); Red Blood Count 4.47 M/mm3 (4.6-6.2); White Blood Count 6.7 K/mm3 (4.4-11.0)
[2020-09-28 12:36] LABS: ALB/GLOB Ratio 0.8 RATIO (0.9-2.4); AST(SGOT) 29 U/L (15-37); Alanine Aminotransfer ALT/SGPT 50 U/L (16-61); Albumin, Serum 3.4 g/dL (3.2-5.0); Alkaline Phosphatase 84 U/L (45-117); Anion Gap 4 (5-15); BUN 13 mg/dL (7-18); BUN/Creat Ratio 11.5 RATIO (10-20); Calcium,Total 8.5 mg/dL (8.5-10.1); Chloride 106 mmol/L (98-107); Cholesterol 162 mg/dL (200); Creatinine, Serum 1.13 mg/dL (0.70-1.30); EST Glomerular Filtration Rate 76 mL/min (>60); Est Glom Filt Rate - Afr Amer 92 mL/min (>60); Globulin 4.3 g/dL (2.2-4.2); Glucose 98 mg/dL (74-106); High Density Lipoprotein 46 mg/dL; Potassium 4.1 mmol/L (3.5-5.1); Protein, Total 7.7 g/dL (6.4-8.2); Sodium Level 138 mmol/L (136-145); Triglycerides 86 mg/dL; Very Low Density Lipoprotein 17 mg/dL (5-40)
== END ==
PROVIDERS: PCP Internal Medicine; Referring Provider Internal Medicine; Visit Provider Internal Medicine
DX: I10 Essential (primary) hypertension (principal)
CPT/HCPCS: 36415; 80053; 80061; 85025

== ENCOUNTER → 2020-10-29 12:47 | Outpatient (CLI) | payer MEDICAID, SELFPAY ==
[2020-09-28 09:18] VITALS: BMI 45.1
[2020-10-27 13:21] VITALS: BMI 47.8
[2020-10-29 15:18] LABS: Hematocrit 44.7 % (40-54); Hemoglobin 14.7 g/dL (13.0-16.5); Mean Corp Hgb Conc 32.9 g/dL (32-36); Mean Corpuscular Hgb 32.8 pg (27.0-32.0); Mean Corpuscular Volume 99.8 fL (80-94); Mean Platelet Vol. 10.3 fl (6.2-12.0); Platelet Count 307 K/mm3 (150-450); RBC Distribution Width CV 12.1 % (11.6-14.6); RBC Distribution Width SD 44.8 fl (35.1-43.9); Red Blood Count 4.48 M/mm3 (4.6-6.2); White Blood Count 6.3 K/mm3 (4.4-11.0)
[2020-10-29 15:36] LABS: Anion Gap 5 (5-15); BUN 14 mg/dL (7-18); BUN/Creat Ratio 11.1 RATIO (10-20); Calcium,Total 8.6 mg/dL (8.5-10.1); Chloride 104 mmol/L (98-107); Creatinine, Serum 1.26 mg/dL (0.70-1.30); EST Glomerular Filtration Rate 67 mL/min (>60); Est Glom Filt Rate - Afr Amer 82 mL/min (>60); Glucose 87 mg/dL (74-106); Potassium 3.9 mmol/L (3.5-5.1); Sodium Level 138 mmol/L (136-145)
[2020-11-01 20:07] LABS: Absolute CD4 Helper 729 /uL (359-1519); Basophils (Absolute) 0 x10E3/uL (0.0-0.2); Eosinophils 4 % (Not Estab.); Eosinophils (Absolute) 0.2 x10E3/uL (0.0-0.4); Hematocrit 44.9 % (37.5-51.0); Hemoglobin 14.8 g/dL (13.0-17.7); Immature Granulocytes 0 % (Not Estab.); Lymphs 42 % (Not Estab.); Lymphs (Absolute) 2.7 x10E3/uL (0.7-3.1); MCV 100 fL (79-97); Monocytes 9 % (Not Estab.); Monocytes (Absolute) 0.6 x10E3/uL (0.1-0.9); Neutrophils 44 % (Not Estab.); Neutrophils (Absolute) 2.8 x10E3/uL (1.4-7.0); Platelets 309 x10E3/uL (150-450); RBC Count 4.49 x10E6/uL (4.14-5.80); RDW 11.1 % (11.6-15.4); WBC Count 6.5 x10E3/uL (3.4-10.8)
[2020-11-01 20:44] LABS: Immature Granulocytes Absolute 0 x10E3/uL (0.0-0.1)
[2020-11-02 09:28] LABS: HIV-1 RNA by PCR, Quant. 20 copies/mL (.); LOG10 HIV-1 RNA 1.301 (.)
[2020-11-04 01:40] LABS: Rapid Plasmin Reagin (RPR) NONREACTIVE (NONREACTIVE)
== END ==
PROVIDERS: PCP Internal Medicine; Referring Provider Internal Medicine Infectious Disease; Visit Provider Internal Medicine Infectious Disease
DX: B20 Human immunodeficiency virus [HIV] disease (principal)
CPT/HCPCS: 36415; 80048; 85027; 86361; 86592; 87536

== ENCOUNTER → 2021-01-26 14:11 | Outpatient (CLI) | payer MEDICAID, SELFPAY ==
[2021-01-26 13:33] VITALS: BMI 46.0
[2021-01-26 15:08] LABS: Absolute Lymphocyte Count 3.09 X10^3/uL (0.83-4.51); Absolute Neutrophil Count 2.4 X10^3/uL (2.0-7.7); Basophil# 0.03 X10^3/uL; Basophil% 0.5 % (0-1); Eosinophil# 0.26 X10^3/uL; Eosinophils% 4.1 % (0-5); Hematocrit 44.7 % (40-54); Hemoglobin 14.5 g/dL (13.0-16.5); Lymphocyte # 3.09 X10^3/ul (0.83-4.51); Lymphocyte % 48.3 % (19-41); Mean Corp Hgb Conc 32.4 g/dL (32-36); Mean Corpuscular Volume 101.8 fL (80-94); Mean Platelet Vol. 9.9 fl (6.2-12.0); Monocyte# 0.61 X10^3/uL; Monocyte% 9.5 % (0-10); NRBC Flagged by Analyzer 0 % (0-5); Neutrophil % 37.4 % (47-70); Platelet Count 295 K/mm3 (150-450); RBC Distribution Width CV 12.1 % (11.6-14.6); RBC Distribution Width SD 45.6 fl (35.1-43.9); Red Blood Count 4.39 M/mm3 (4.6-6.2); White Blood Count 6.4 K/mm3 (4.4-11.0)
[2021-01-26 15:45] LABS: ALB/GLOB Ratio 0.8 RATIO (0.9-2.4); AST(SGOT) 25 U/L (15-37); Alanine Aminotransfer ALT/SGPT 42 U/L (16-61); Albumin, Serum 3.4 g/dL (3.2-5.0); Alkaline Phosphatase 85 U/L (45-117); Anion Gap 3 (5-15); BUN 12 mg/dL (7-18); BUN/Creat Ratio 9.7 RATIO (10-20); Calcium,Total 8.4 mg/dL (8.5-10.1); Chloride 107 mmol/L (98-107); Creatinine, Serum 1.24 mg/dL (0.70-1.30); EST Glomerular Filtration Rate 69 mL/min (>60); Est Glom Filt Rate - Afr Amer 83 mL/min (>60); Globulin 4.2 g/dL (2.2-4.2); Glucose 93 mg/dL (74-106); Potassium 3.9 mmol/L (3.5-5.1); Protein, Total 7.6 g/dL (6.4-8.2); Sodium Level 140 mmol/L (136-145)
== END ==
PROVIDERS: PCP Internal Medicine; Referring Provider Nurse Practitioner Family; Visit Provider Nurse Practitioner Family
DX: K62.5 Hemorrhage of anus and rectum (principal)
CPT/HCPCS: 36415; 80053; 85025

== ENCOUNTER → 2021-01-28 | Outpatient (CLI) | payer MEDICAID, SELFPAY ==
[2021-01-26 13:33] VITALS: BMI 46.0
== END | disposition home or self-care (01) ==
LOC: LABSPEC 11:00
PROVIDERS: PCP Internal Medicine; Referring Provider Nurse Practitioner Family; Visit Provider Nurse Practitioner Family
DX: K62.5 Hemorrhage of anus and rectum (principal)
CPT/HCPCS: 82274

== ENCOUNTER → 2021-03-04 12:33 | Outpatient (CLI) | payer MEDICAID, SELFPAY ==
[2021-02-07 13:32] VITALS: BMI 46.0
[2021-03-04 15:23] LABS: Hematocrit 43.9 % (40-54); Hemoglobin 14.5 g/dL (13.0-16.5); Mean Corpuscular Hgb 33.3 pg (27.0-32.0); Mean Corpuscular Volume 100.9 fL (80-94); Mean Platelet Vol. 10.3 fl (6.2-12.0); Platelet Count 279 K/mm3 (150-450); RBC Distribution Width CV 11.9 % (11.6-14.6); RBC Distribution Width SD 44.3 fl (35.1-43.9); Red Blood Count 4.35 M/mm3 (4.6-6.2); White Blood Count 6.2 K/mm3 (4.4-11.0)
[2021-03-04 15:44] LABS: ALB/GLOB Ratio 0.8 RATIO (0.9-2.4); AST(SGOT) 32 U/L (15-37); Alanine Aminotransfer ALT/SGPT 47 U/L (16-61); Albumin, Serum 3.5 g/dL (3.2-5.0); Alkaline Phosphatase 96 U/L (45-117); Anion Gap 5 (5-15); BUN 11 mg/dL (7-18); BUN/Creat Ratio 9.3 RATIO (10-20); Bilirubin, Direct 0.16 mg/dL (0.00-0.30); Calcium,Total 8.9 mg/dL (8.5-10.1); Chloride 106 mmol/L (98-107); Creatinine, Serum 1.18 mg/dL (0.70-1.30); EST Glomerular Filtration Rate 73 mL/min (>60); Est Glom Filt Rate - Afr Amer 88 mL/min (>60); Globulin 4.4 g/dL (2.2-4.2); Glucose 96 mg/dL (74-106); Potassium 4.2 mmol/L (3.5-5.1); Protein, Total 7.9 g/dL (6.4-8.2); Sodium Level 138 mmol/L (136-145)
[2021-03-07 20:07] LABS: Hematocrit 43.4 % (37.5-51.0); Hemoglobin 14.5 g/dL (13.0-17.7); MCH 34.1 pg (26.6-33.0); MCHC 33.4 g/dL (31.5-35.7); MCV 102 fL (79-97); Percent % CD4 Pos. Lymph. 26.4 % (30.8-58.5); Platelets 277 x10E3/uL (150-450); RBC Count 4.25 x10E6/uL (4.14-5.80); RDW 11.7 % (11.6-15.4)
[2021-03-10 18:44] LABS: HIV-1 RNA by PCR, Quant. < 20 copies/mL (.)
== END ==
PROVIDERS: PCP Internal Medicine; Referring Provider Internal Medicine Infectious Disease; Visit Provider Internal Medicine Infectious Disease
DX: B20 Human immunodeficiency virus [HIV] disease (principal)
CPT/HCPCS: 36415; 80053; 82248; 85027; 86361; 87536

== ENCOUNTER → 2021-06-30 13:37 | Outpatient (CLI) | payer MEDICAID, SELFPAY ==
[2021-06-30 15:04] LABS: Absolute Lymphocyte Count 2.82 X10^3/uL (0.83-4.51); Absolute Neutrophil Count 3.3 X10^3/uL (2.0-7.7); Basophil# 0.04 X10^3/uL; Basophil% 0.6 % (0-1); Eosinophil# 0.16 X10^3/uL; Eosinophils% 2.3 % (0-5); Hematocrit 43.8 % (40-54); Hemoglobin 14.8 g/dL (13.0-16.5); Lymphocyte # 2.82 X10^3/ul (0.83-4.51); Lymphocyte % 39.8 % (19-41); Mean Corp Hgb Conc 33.8 g/dL (32-36); Mean Corpuscular Volume 100.7 fL (80-94); Mean Platelet Vol. 9.7 fl (6.2-12.0); Monocyte# 0.75 X10^3/uL; Monocyte% 10.6 % (0-10); NRBC Flagged by Analyzer 0 % (0-5); Neutrophil % 46.6 % (47-70); Platelet Count 301 K/mm3 (150-450); RBC Distribution Width CV 11.9 % (11.6-14.6); RBC Distribution Width SD 44.6 fl (35.1-43.9); Red Blood Count 4.35 M/mm3 (4.6-6.2); White Blood Count 7.1 K/mm3 (4.4-11.0)
[2021-06-30 15:19] LABS: ALB/GLOB Ratio 0.8 RATIO (0.9-2.4); AST(SGOT) 27 U/L (15-37); Alanine Aminotransfer ALT/SGPT 40 U/L (16-61); Albumin, Serum 3.5 g/dL (3.2-5.0); Alkaline Phosphatase 96 U/L (45-117); Anion Gap 2 (5-15); BUN 10 mg/dL (7-18); BUN/Creat Ratio 8.8 RATIO (10-20); Calcium,Total 8.9 mg/dL (8.5-10.1); Chloride 106 mmol/L (98-107); Creatinine, Serum 1.13 mg/dL (0.70-1.30); EST Glomerular Filtration Rate 76 mL/min (>60); Est Glom Filt Rate - Afr Amer 92 mL/min (>60); Globulin 4.5 g/dL (2.2-4.2); Glucose 86 mg/dL (74-106); Potassium 3.9 mmol/L (3.5-5.1); Sodium Level 137 mmol/L (136-145)
== END ==
PROVIDERS: PCP Internal Medicine; Referring Provider Internal Medicine; Visit Provider Internal Medicine
DX: I10 Essential (primary) hypertension (principal)
CPT/HCPCS: 36415; 80053; 85025

== ENCOUNTER 2021-07-19 12:01 | Day surgery (SDC) | payer MEDICAID, SELFPAY ==
[2021-07-19] VITALS (7 sets, daily range): BP systolic 112–145; BP diastolic 56–95; PULSE 52–73; RESP 16–108; TEMP 36.2–36.7; O2SAT 94–98; BMI 45.2
--- NOTE | 2021-07-19 13:15 | EGD_PTH ---
PATIENT: ORI MADRID LOC: EN U#:[id number] AGE/SX: 40/M ROOM: RE07/19/[address]: Dr. Kevin Watkins DO : 1980 BED: DIS: 07/19/2021 SPEC #: [id number] RECD: 07/19/21 15:49 STATUS: KAT JOEY #: [id number] EUGENIA: 07/19/21 13:[address]: Kevin Watkins DEPT: SURGICAL PATHOLOGY RECD BY: Christiano Colunga ENTERED: 07/20/21 08:19 SP TYPE: EGD BIOPSY GAMA DR: Dr. Malathi Perez MD Tissues: Stomach, NOS Procedures: Special Stain Group II Surgery Specimen Level IV Alcian Blue/PAS (control) HEADER OPERATION: EGD ? PH probe ([facility] [place]) PRE-OP DIAGNOSIS: GERD TISSUE SUBMITTED: GE junction biopsy MICROSCOPIC DIAGNOSIS GE junction, biopsy: Fragments of gastric mucosa with chronic inflammation. Intestinal metaplasia (goblet cell metaplasia) not identified. See comment. NINI:shankar 07/21/2021 COMMENT Alcian blue/PAS stain with matched control is used in the evaluation of the specimen. MICROSCOPIC DESCRIPTION Slides are reviewed. GROSS DESCRIPTION Received in fixative is one container labeled with the patient's name and designated GE junction biopsy. The specimen consists of two irregular fragments of light chen soft tissue that in aggregate measure 0.5 x 0.3 x 0.1 cm. The specimen is totally submitted in one cassette. / NINI:shankar 09/19/21 TC:3 CPT: 95519, 12991
--- NOTE | 2021-07-19 13:36 | HP.PCM_ITS ---
History and Physical Date of Admission: 07/19/21 HPI HPI Chief Complaint: FU Chronic conditions. GERD, Fatigue Details: ORI MADRID, is a 40 M who presents to the office today for Has had difficulty with acid reflux for several years. In the last six months this has gotten worse with increased burning and feels like he's coughing up a hammad. Has not identified alleviating or aggravating factors. Prescriptions that have not been effective include pantroprazole, prilosec, lansoprazole, nexium, pepcid. He has never had an EGD or colonoscopy. He also has tried antacids with no improvement. He thinks his mother had similar issues with reflux disease, but was never officially diagnosed. He denies any chest pain or shortness of wei th. He denies any nausea. ROS Const Constitutional: Positive for fatigue Psych Psychiatric: Positive for anxiety Exam Const General: cooperative and comfortable Nutritional Appearance: average body habitus and well nourished HENMT Head: normal to inspection Ears: hearing grossly normal bilaterally Nose: external nose normal Face and sinus: normal facial exam Mouth: oral mucosae normal Throat: posterior oropharynx normal Eyes General: appearance normal, both eyes and all related structures Neck Neck: normal visual inspection Chest Chest palpation & inspection: normal inspection of the chest and normal palpation of entire chest wall Resp Effort & Inspection: normal respiratory effort Auscultation: Bilateral: Clear to Auscultation Cardio Palpation: normal PMI Rate: regular rate Rhythm: regular rhythm GI Inspection: normal to inspection Auscultation: normal bowel sounds Percussion: normal to percussion Palpation: no hepatosplenomegaly Skin General: no rashes or lesions noted Neuro General: patient alert Extrem General: normal to inspection Psych Affect: normal affect Quality Reporting Tobacco Screening ([facility] 138) Smoking Status: Current some day smoker Assessment and Plan Assessment and Plan (1) GERD (gastroesophageal reflux disease): Status: Acute Plan - Dr. Brown Friend, DO: We will perform an upper endoscopy with Payton study. This will be one medication. I would like to see if he is having refractory reflux disease on medicine. Will be a 48-hour Payton study. We will also like to delineate his anatomy to see if he has a hiatal hernia or just a lax lower esophageal sphincter. Coding Level of Care Code Off vis,new,level 3 Diagnoses GERD (gastroesophageal reflux disease) K21.9
--- NOTE | 2021-07-19 14:12 | OP.EGD_ITS ---
Patient Name: Victor Hugo Edward Procedure Date: 07/19/2021 1:44 PM Date of : 1980 Age: 40 Procedure: Upper GI endoscopy Indications: Esophageal reflux Providers: Kevin Watkins DO Medicines: Propofol per Anesthesia Patient Profile: This is a 40 year old male. Refer to note in patient chart for documentation of history and physical. Patient has symptoms of chronic heartburn. Complications: No immediate complications. Procedure: Pre-Anesthesia Assessment: - Prior to the procedure, a History and Physical was performed, and patient medications and allergies were reviewed. The patient is competent. The risks and benefits of the procedure and the sedation options and risks were discussed with the patient. All questions were answered and informed consent was obtained. Patient identification and proposed procedure were verified in the pre-procedure area. Mental Status Examination: alert and oriented. Airway Examination: normal oropharyngeal airway and neck mobility. Respiratory Examination: clear to auscultation. CV Examination: normal. Prophylactic Antibiotics: The patient does not require prophylactic antibiotics. Prior Anticoagulants: The patient has taken no previous anticoagulant or antiplatelet agents. ASA Grade Assessment: II - A patient with mild systemic disease. After reviewing the risks and benefits, the patient was deemed in satisfactory condition to undergo the procedure. The anesthesia plan was to use moderate sedation / analgesia (conscious sedation). Immediately prior to administration of medications, the patient was re-assessed for adequacy to receive sedatives. The heart rate, respiratory rate, oxygen saturations, blood pressure, adequacy of pulmonary ventilation, and response to care were monitored throughout the procedure. The physical status of the patient was re-assessed after the procedure. After obtaining informed consent, the endoscope was passed under direct vision. Throughout the procedure, the patient's blood pressure, pulse, and oxygen saturations were monitored continuously. The gastroscope was introduced through the mouth, and advanced to the second part of duodenum. The upper GI endoscopy was accomplished without difficulty. The patient tolerated the procedure well. Moderate Sedation: Moderate (conscious) sedation was administered by the endoscopy nurse and supervised by the endoscopist. The patient's oxygen saturation, heart rate, blood pressure and response to care were monitored. Total physician intraservice time was 15 minutes. Scope In: 1:51:04 PM Scope Out: 2:00:12 PM Total Procedure Duration Time 0 hours 9 minutes 8 seconds Findings: LA Grade B (one or more mucosal breaks greater than 5 mm, not extending between the tops of two mucosal folds) esophagitis with no bleeding was found 34 to 37 cm from the incisors. Biopsies were taken with a cold forceps for histology. Verification of patient identification for the specimen was done. The ATKINS capsule with delivery system was introduced through the mouth and advanced into the esophagus, such that the ATKINS pH capsule was positioned 36 cm from the incisors, which was 30 cm proximal to the GE junction. The ATKINS pH capsule was then deployed and attached to the esophageal mucosa. The delivery system was then withdrawn. Endoscopy was utilized for probe placement and diagnostic evaluation. A small hiatal hernia was present. The cardia and gastric fundus were normal on retroflexion. The [Site] was normal. Impression: - LA Grade B reflux and reflux esophagitis. Rule out Garay's esophagus. Biopsied. - Small hiatal hernia. - Normal [Site]. - The ATKINS pH capsule was deployed. Recommendation: - Discharge patient to home. - Resume previous diet. - Continue present medications. - Await pathology results. - Repeat upper endoscopy in 1 year for surveillance. - Return to GI office in 2 weeks. Procedure Code(s): --- Professional --- 71907, Esophagogastroduodenoscopy, flexible, transoral; with biopsy, single or multiple G0500, Moderate sedation services provided by the same physician or other qualified health landcare officer performing a gastrointestinal endoscopic service that sedation supports, requiring the presence of an independent trained observer to assist in the monitoring of the patient's level of consciousness and physiological status; initial 15 minutes of intra-service time; patient age 5 years or older (additional time may be reported with 77082, as appropriate) CPT copyright 2017 [employer]. All rights reserved. The codes documented in this report are preliminary and upon manager massage department review may be revised to meet current compliance requirements. Kevin Watkins DO 07/19/2021 2:11:37 PM This report has been signed electronically. Number of Addenda: 1 Note Initiated On: 07/19/2021 1:44 PM Addendum Number: 1 Addendum Date: 06/08/2022 4:32:10 PM MAC was used instead of moderate sedation for this patient. Kevin Watkins DO 06/08/2022 4:32:15 PM This report has been signed electronically.
== END 2021-07-19 14:49 ==
LOC: EN 12:01 → AC 12:02
PROVIDERS: PCP Internal Medicine; Referring Provider Internal Medicine; Visit Provider Internal Medicine Gastroenterology
PROC: (CPT 43239; principal; 2021-07-19 13:10)
DX: K21.00 Gastro-esophageal reflux disease with esophagitis, without bleeding (principal); K44.9 Diaphragmatic hernia without obstruction or gangrene; I10 Essential (primary) hypertension; B20 Human immunodeficiency virus [HIV] disease; G89.29 Other chronic pain; F41.8 Other specified anxiety disorders; G47.00 Insomnia, unspecified; E66.01 Morbid (severe) obesity due to excess calories; Z68.42 Body mass index [BMI] 45.0-49.9, adult; J45.909 Unspecified asthma, uncomplicated; Z79.899 Other long term (current) drug therapy; F17.200 Nicotine dependence, unspecified, uncomplicated
CPT/HCPCS: 43239; 91035; 88305; 88313; J7120; J2405

== ENCOUNTER → 2021-07-25 | Outpatient (CLI) | payer MEDICAID, SELFPAY | END | disposition home or self-care (01) | LOC: LABSPEC 15:56 | PROVIDERS: PCP Internal Medicine; Visit Provider Otolaryngology Otolaryngology/Facial Plastic Surgery | DX: J02.9 Acute pharyngitis, unspecified (principal) | CPT/HCPCS: 87070 ==

== ENCOUNTER → 2021-07-26 10:26 | Outpatient (CLI) | payer MEDICAID, SELFPAY ==
[2020-10-27 13:21] VITALS: BMI 47.8
[2021-07-26 12:18] LABS: Hematocrit 44.1 % (40-54); Mean Corpuscular Hgb 33.3 pg (27.0-32.0); Mean Corpuscular Volume 97.8 fL (80-94); Mean Platelet Vol. 10.6 fl (6.2-12.0); Platelet Count 264 K/mm3 (150-450); RBC Distribution Width CV 11.5 % (11.6-14.6); RBC Distribution Width SD 41.6 fl (35.1-43.9); Red Blood Count 4.51 M/mm3 (4.6-6.2); White Blood Count 4.2 K/mm3 (4.4-11.0)
[2021-07-26 12:56] LABS: AST(SGOT) 43 U/L (15-37); Alanine Aminotransfer ALT/SGPT 49 U/L (16-61); Albumin, Serum 3.5 g/dL (3.2-5.0); Alkaline Phosphatase 94 U/L (45-117); Anion Gap 8 (5-15); BUN 13 mg/dL (7-18); BUN/Creat Ratio 10.7 RATIO (10-20); Bilirubin, Direct 0.23 mg/dL (0.00-0.30); Calcium,Total 8.7 mg/dL (8.5-10.1); Chloride 103 mmol/L (98-107); Creatinine, Serum 1.22 mg/dL (0.70-1.30); EST Glomerular Filtration Rate 70 mL/min (>60); Est Glom Filt Rate - Afr Amer 84 mL/min (>60); Globulin 4.7 g/dL (2.2-4.2); Glucose 99 mg/dL (74-106); Phosphorus 3.1 mg/dL (2.5-4.9); Potassium 3.8 mmol/L (3.5-5.1); Protein, Total 8.2 g/dL (6.4-8.2); Sodium Level 137 mmol/L (136-145)
[2021-07-26 13:26] LABS: Protein, Urine (Random) 17.8 mg/dL (<11.9); Protein:Creat Ratio 65 mg/g CRE (0-200)
[2021-07-27 15:09] LABS: Absolute CD4 Helper 524 /uL (359-1519); Basophils (Absolute) 0 x10E3/uL (0.0-0.2); Eosinophils 4 % (Not Estab.); Eosinophils (Absolute) 0.2 x10E3/uL (0.0-0.4); Hematocrit 43.7 % (37.5-51.0); Hemoglobin 15.2 g/dL (13.0-17.7); Immature Granulocytes 1 % (Not Estab.); Immature Granulocytes Absolute 0 x10E3/uL (0.0-0.1); Lymphs 54 % (Not Estab.); Lymphs (Absolute) 2.3 x10E3/uL (0.7-3.1); MCH 33.6 pg (26.6-33.0); MCHC 34.8 g/dL (31.5-35.7); MCV 97 fL (79-97); Monocytes 16 % (Not Estab.); Monocytes (Absolute) 0.7 x10E3/uL (0.1-0.9); Neutrophils 24 % (Not Estab.); Percent % CD4 Pos. Lymph. 22.8 % (30.8-58.5); Platelets 263 x10E3/uL (150-450); RBC Count 4.53 x10E6/uL (4.14-5.80); RDW 11.4 % (11.6-15.4); WBC Count 4.2 x10E3/uL (3.4-10.8)
[2021-07-28 15:19] LABS: HIV-1 RNA by PCR, Quant. < 20 copies/mL (.)
== END ==
PROVIDERS: PCP Internal Medicine; Referring Provider Internal Medicine Infectious Disease; Visit Provider Internal Medicine Infectious Disease
DX: B20 Human immunodeficiency virus [HIV] disease (principal); N18.2 Chronic kidney disease, stage 2 (mild)
CPT/HCPCS: 36415; 80048; 80076; 82570; 84100; 84156; 85027; 86361; 87536

== ENCOUNTER 2022-01-09 09:49 | Outpatient (CLI) | payer MEDICAID, SELFPAY ==
[2022-01-09 12:08] LABS: Absolute Lymphocyte Count 2.92 X10^3/uL (0.83-4.51); Absolute Neutrophil Count 2.2 X10^3/uL (2.0-7.7); Basophil# 0.04 X10^3/uL; Basophil% 0.6 % (0-1); Eosinophil# 0.32 X10^3/uL; Eosinophils% 5.1 % (0-5); Hematocrit 40.3 % (40-54); Hemoglobin 13.5 g/dL (13.0-16.5); Lymphocyte # 2.92 X10^3/ul (0.83-4.51); Lymphocyte % 46.7 % (19-41); Mean Corp Hgb Conc 33.5 g/dL (32-36); Mean Corpuscular Hgb 33.8 pg (27.0-32.0); Mean Corpuscular Volume 100.8 fL (80-94); Mean Platelet Vol. 10.6 fl (6.2-12.0); Monocyte# 0.76 X10^3/uL; Monocyte% 12.2 % (0-10); NRBC Flagged by Analyzer 0 % (0-5); Neutrophil % 35.2 % (47-70); Platelet Count 265 K/mm3 (150-450); RBC Distribution Width CV 12.4 % (11.6-14.6); RBC Distribution Width SD 46.4 fl (35.1-43.9); White Blood Count 6.3 K/mm3 (4.4-11.0)
[2022-01-09 12:23] LABS: ALB/GLOB Ratio 0.8 RATIO (0.9-2.4); AST(SGOT) 49 U/L (15-37); Alanine Aminotransfer ALT/SGPT 75 U/L (16-61); Albumin, Serum 3.2 g/dL (3.2-5.0); Alkaline Phosphatase 72 U/L (45-117); Anion Gap 6 (5-15); BUN 15 mg/dL (7-18); BUN/Creat Ratio 10.6 RATIO (10-20); Calcium,Total 8.5 mg/dL (8.5-10.1); Chloride 107 mmol/L (98-107); Cholesterol 139 mg/dL (200); Creatinine, Serum 1.42 mg/dL (0.70-1.30); EST Glomerular Filtration Rate 58 mL/min (>60); Est Glom Filt Rate - Afr Amer 71 mL/min (>60); Glucose 97 mg/dL (74-106); High Density Lipoprotein 41 mg/dL; Potassium 4.1 mmol/L (3.5-5.1); Protein, Total 7.2 g/dL (6.4-8.2); Sodium Level 139 mmol/L (136-145); Triglycerides 107 mg/dL; Very Low Density Lipoprotein 21 mg/dL (5-40)
== END 2022-01-09 23:59 | disposition home or self-care (01) ==
LOC: BIMLAB 09:50
PROVIDERS: PCP Internal Medicine; Referring Provider Internal Medicine; Visit Provider Internal Medicine
DX: I10 Essential (primary) hypertension (principal)
CPT/HCPCS: 36415; 80053; 80061; 85025

== ENCOUNTER 2022-01-26 13:03 | Outpatient (RCR) | payer MEDICAID, SELFPAY | END 2022-02-04 23:59 | LOC: NS 13:03 | PROVIDERS: PCP Internal Medicine; Referring Provider Internal Medicine; Visit Provider Internal Medicine | DX: Z71.3 Dietary counseling and surveillance (principal); E66.01 Morbid (severe) obesity due to excess calories; Z68.42 Body mass index [BMI] 45.0-49.9, adult | CPT/HCPCS: 97802 ==

== ENCOUNTER → 2022-02-17 | Outpatient (CLI) | payer MEDICAID, SELFPAY ==
[2022-02-17 12:36] LABS: Hematocrit 40.6 % (40-54); Hemoglobin 13.7 g/dL (13.0-16.5); Mean Corp Hgb Conc 33.7 g/dL (32-36); Mean Corpuscular Hgb 33.9 pg (27.0-32.0); Mean Corpuscular Volume 100.5 fL (80-94); Mean Platelet Vol. 10.4 fl (6.2-12.0); Platelet Count 258 K/mm3 (150-450); RBC Distribution Width CV 11.9 % (11.6-14.6); RBC Distribution Width SD 44.6 fl (35.1-43.9); Red Blood Count 4.04 M/mm3 (4.6-6.2); White Blood Count 6.5 K/mm3 (4.4-11.0)
[2022-02-17 12:40] LABS: Anion Gap 3 (5-15); BUN 13 mg/dL (7-18); BUN/Creat Ratio 10.6 RATIO (10-20); Calcium,Total 8.5 mg/dL (8.5-10.1); Chloride 107 mmol/L (98-107); Cholesterol 141 mg/dL (200); Creatinine, Serum 1.23 mg/dL (0.70-1.30); EST Glomerular Filtration Rate 69 mL/min (>60); Est Glom Filt Rate - Afr Amer 83 mL/min (>60); Glucose 117 mg/dL (74-106); High Density Lipoprotein 42 mg/dL; Potassium 4.1 mmol/L (3.5-5.1); Sodium Level 137 mmol/L (136-145); Triglycerides 87 mg/dL; Very Low Density Lipoprotein 17 mg/dL (5-40)
[2022-02-17 13:06] LABS: Hepatitis C Antibody Non-Reactive (Nonreactive); Syphilis Antibodies Non-reactive
[2022-02-17 13:55] LABS: Chlamydia Trachomatis by PCR Negative (Negative); Neisserai gonorrhoeae by PCR Negative (Negative); Probe Check PASS; Sample Adequacy Control PASS; Specimen Processing Control PASS
[2022-02-18 16:08] LABS: Absolute CD4 Helper 720 /uL (359-1519); Basophils (Absolute) 0 x10E3/uL (0.0-0.2); Eosinophils 4 % (Not Estab.); Eosinophils (Absolute) 0.2 x10E3/uL (0.0-0.4); Hematocrit 40.2 % (37.5-51.0); Hemoglobin 13.9 g/dL (13.0-17.7); Immature Granulocytes 0 % (Not Estab.); Lymphs 45 % (Not Estab.); MCH 34.3 pg (26.6-33.0); MCHC 34.6 g/dL (31.5-35.7); MCV 99 fL (79-97); Monocytes 11 % (Not Estab.); Monocytes (Absolute) 0.7 x10E3/uL (0.1-0.9); Neutrophils 39 % (Not Estab.); Neutrophils (Absolute) 2.5 x10E3/uL (1.4-7.0); Platelets 248 x10E3/uL (150-450); RBC Count 4.05 x10E6/uL (4.14-5.80); RDW 11.5 % (11.6-15.4); WBC Count 6.5 x10E3/uL (3.4-10.8)
[2022-02-19 08:19] LABS: Immature Granulocytes Absolute 0 x10E3/uL (0.0-0.1)
[2022-02-20 16:39] LABS: HIV-1 RNA by PCR, Quant. < 20 copies/mL (.)
== END | disposition home or self-care (01) ==
LOC: MTLAB 10:54
PROVIDERS: PCP Internal Medicine; Referring Provider Internal Medicine Infectious Disease; Visit Provider Internal Medicine Infectious Disease
DX: B20 Human immunodeficiency virus [HIV] disease (principal)
CPT/HCPCS: 36415; 80048; 80061; 85027; 86361; 86780; 86803; 87491; 87536; 87591

== ENCOUNTER → 2022-04-25 | Outpatient (CLI) | payer MEDICAID, SELFPAY ==
[2021-03-30 10:30] VITALS: BMI 44.6
[2022-04-25 12:50] LABS: Albumin, Serum 3.4 g/dL (3.2-5.0); BUN 13 mg/dL (7-18); BUN/Creat Ratio 11.6 RATIO (10-20); Calcium,Total 8.6 mg/dL (8.5-10.1); Chloride 105 mmol/L (98-107); Creatinine, Serum 1.12 mg/dL (0.70-1.30); EST Glomerular Filtration Rate 77 mL/min (>60); Est Glom Filt Rate - Afr Amer 93 mL/min (>60); Estimated Creatinine Clearance 103.74 ml/min; Glucose 112 mg/dL (74-106); Phosphorus 3.2 mg/dL (2.5-4.9); Sodium Level 137 mmol/L (136-145)
[2022-04-25 12:52] LABS: Protein, Urine (Random) 16.9 mg/dL (<11.9); Protein:Creat Ratio 94 mg/g CRE (0-200)
== END | disposition home or self-care (01) ==
LOC: POLAB3 10:23
PROVIDERS: PCP Internal Medicine; Visit Provider Internal Medicine Nephrology
DX: N18.2 Chronic kidney disease, stage 2 (mild) (principal)
CPT/HCPCS: 36415; 80069; 82570; 84156

== ENCOUNTER → 2022-06-29 | Outpatient (CLI) | payer MEDICAID, SELFPAY ==
--- NOTE | 2022-06-29 13:00 | US_ITS ---
EXAM: US SOFT TISSUES HEAD AND NECK, THYROID CLINICAL INDICATION: Anterior Neck Swelling TECHNIQUE: Greyscale and color doppler imaging was performed of the thyroid gland. This report was created using [employer] report generation technology. COMPARISON: None. FINDINGS: LEFT THYROID LOBE: 4.9 x 2.1 x 1.6 cm. Small cystic nodule in the left thyroid lobe measuring 3 x 3 x 2 mm. Homogeneous echotexture with normal vascularity. RIGHT THYROID LOBE: 4.7 x 2.3 x 2.1 cm. Small cystic nodule in the right thyroid lobe measuring 6 x 6 x 4 mm. Homogeneous echotexture with normal vascularity. ISTHMUS: 4 mm. No thyroid nodules are present. OTHER FINDINGS: TI-RADS category: TR1. These nodules are cystic or nearly completely cystic. These nodules are benign and no FNA or follow-up is necessary. US/Thyroid IMPRESSION: 2 subcentimeter cystic nodules in the thyroid gland, otherwise unremarkable exam. TI-RADS category: TR1. These nodules are cystic or nearly completely cystic. These nodules are benign and no FNA or follow-up is necessary. Electronically Signed: Yehuda Begum MD at 2:05 EDT ,
== END | disposition home or self-care (01) ==
LOC: US 12:53
PROVIDERS: PCP Internal Medicine; Referring Provider Internal Medicine; Visit Provider Internal Medicine
DX: R22.1 Localized swelling, mass and lump, neck (principal)
CPT/HCPCS: 76536

== ENCOUNTER 2022-08-23 13:29 | Outpatient (CLI) | payer MEDICAID, SELFPAY ==
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
[2022-08-23 15:29] LABS: Hemoglobin 14.7 g/dL (13.0-16.5); Mean Corp Hgb Conc 34.2 g/dL (32-36); Mean Corpuscular Hgb 34.8 pg (27.0-32.0); Mean Corpuscular Volume 101.9 fL (80-94); Mean Platelet Vol. 10.2 fl (6.2-12.0); Platelet Count 294 K/mm3 (150-450); RBC Distribution Width CV 12.4 % (11.6-14.6); RBC Distribution Width SD 46.4 fl (35.1-43.9); Red Blood Count 4.22 M/mm3 (4.6-6.2); White Blood Count 6.6 K/mm3 (4.4-11.0)
[2022-08-23 15:46] LABS: Anion Gap 6 (5-15); BUN 12 mg/dL (7-18); BUN/Creat Ratio 9.8 RATIO (10-20); Calcium,Total 8.8 mg/dL (8.5-10.1); Chloride 103 mmol/L (98-107); Cholesterol 142 mg/dL (200); Creatinine, Serum 1.23 mg/dL (0.70-1.30); EST Glomerular Filtration Rate 69 mL/min (>60); Est Glom Filt Rate - Afr Amer 83 mL/min (>60); Glucose 85 mg/dL (74-106); High Density Lipoprotein 46 mg/dL; Potassium 3.6 mmol/L (3.5-5.1); Sodium Level 139 mmol/L (136-145); Triglycerides 82 mg/dL; Very Low Density Lipoprotein 16 mg/dL (5-40)
[2022-08-23 16:22] LABS: Hepatitis C Antibody Non-Reactive (Nonreactive); Syphilis Antibodies Non-reactive
[2022-08-23 17:19] LABS: Chlamydia Trachomatis by PCR Negative (Negative); Neisserai gonorrhoeae by PCR Negative (Negative); Probe Check PASS; Sample Adequacy Control PASS; Specimen Processing Control PASS
[2022-08-25 12:08] LABS: Absolute CD4 Helper 614 /uL (359-1519); Basophils (Absolute) 0 x10E3/uL (0.0-0.2); Eosinophils 3 % (Not Estab.); Eosinophils (Absolute) 0.2 x10E3/uL (0.0-0.4); Hematocrit 44.2 % (37.5-51.0); Hemoglobin 14.6 g/dL (13.0-17.7); Immature Granulocytes 0 % (Not Estab.); Lymphs 37 % (Not Estab.); Lymphs (Absolute) 2.4 x10E3/uL (0.7-3.1); MCH 33.9 pg (26.6-33.0); MCV 103 fL (79-97); Monocytes 11 % (Not Estab.); Monocytes (Absolute) 0.7 x10E3/uL (0.1-0.9); Neutrophils 48 % (Not Estab.); Neutrophils (Absolute) 3.1 x10E3/uL (1.4-7.0); Percent % CD4 Pos. Lymph. 25.6 % (30.8-58.5); Platelets 294 x10E3/uL (150-450); RBC Count 4.31 x10E6/uL (4.14-5.80); RDW 11.1 % (11.6-15.4); WBC Count 6.4 x10E3/uL (3.4-10.8)
[2022-08-25 20:27] LABS: Immature Granulocytes Absolute 0 x10E3/uL (0.0-0.1)
[2022-08-26 07:37] LABS: HIV-1 RNA by PCR, Quant. < 20 copies/mL (.)
== END 2022-08-23 23:59 | disposition home or self-care (01) ==
PROVIDERS: PCP Internal Medicine; Referring Provider Internal Medicine Infectious Disease; Visit Provider Internal Medicine Infectious Disease
DX: U07.1 COVID-19 (principal); B20 Human immunodeficiency virus [HIV] disease
CPT/HCPCS: 36415; 71046; 80048; 80061; 85027; 86361; 86780; 86803; 87491; 87536; 87591

== ENCOUNTER → 2023-02-05 | Outpatient (CLI) | payer MEDICAID, SELFPAY ==
[2023-02-05 15:13] LABS: Hematocrit 43.3 % (40-54); Hemoglobin 14.2 g/dL (13.0-16.5); Mean Corp Hgb Conc 32.8 g/dL (32-36); Mean Corpuscular Hgb 33.6 pg (27.0-32.0); Mean Corpuscular Volume 102.6 fL (80-94); Mean Platelet Vol. 10.3 fl (6.2-12.0); Platelet Count 314 K/mm3 (150-450); RBC Distribution Width CV 12.2 % (11.6-14.6); RBC Distribution Width SD 45.9 fl (35.1-43.9); Red Blood Count 4.22 M/mm3 (4.6-6.2); White Blood Count 5.7 K/mm3 (4.4-11.0)
[2023-02-05 15:34] LABS: Anion Gap 5 (5-15); BUN 11 mg/dL (7-18); BUN/Creat Ratio 8.9 RATIO (10-20); Calcium,Total 8.9 mg/dL (8.5-10.1); Chloride 107 mmol/L (98-107); Creatinine, Serum 1.24 mg/dL (0.70-1.30); EST Glomerular Filtration Rate 68 mL/min (>60); Est Glom Filt Rate - Afr Amer 82 mL/min (>60); Glucose 96 mg/dL (74-106); Potassium 3.8 mmol/L (3.5-5.1); Sodium Level 139 mmol/L (136-145)
[2023-02-07 15:08] LABS: Absolute CD4 Helper 579 /uL (359-1519); Basophils (Absolute) 0 x10E3/uL (0.0-0.2); Eosinophils 2 % (Not Estab.); Eosinophils (Absolute) 0.1 x10E3/uL (0.0-0.4); Hematocrit 43.2 % (37.5-51.0); Hemoglobin 14.1 g/dL (13.0-17.7); Immature Granulocytes 0 % (Not Estab.); Immature Granulocytes Absolute 0 x10E3/uL (0.0-0.1); Lymphs 37 % (Not Estab.); Lymphs (Absolute) 2.2 x10E3/uL (0.7-3.1); MCH 33.3 pg (26.6-33.0); MCHC 32.6 g/dL (31.5-35.7); MCV 102 fL (79-97); Monocytes 10 % (Not Estab.); Monocytes (Absolute) 0.6 x10E3/uL (0.1-0.9); Neutrophils 50 % (Not Estab.); Percent % CD4 Pos. Lymph. 26.3 % (30.8-58.5); Platelets 315 x10E3/uL (150-450); RBC Count 4.23 x10E6/uL (4.14-5.80); RDW 11.7 % (11.6-15.4); WBC Count 5.9 x10E3/uL (3.4-10.8)
[2023-02-08 06:09] LABS: HIV-1 RNA by PCR, Quant. < 20 copies/mL (.)
== END | disposition home or self-care (01) ==
LOC: MTLAB 12:34
PROVIDERS: PCP Internal Medicine; Referring Provider Internal Medicine Infectious Disease; Visit Provider Internal Medicine Infectious Disease
DX: B20 Human immunodeficiency virus [HIV] disease (principal)
CPT/HCPCS: 36415; 80048; 85027; 86361; 87536

== ENCOUNTER → 2023-05-01 | Outpatient (CLI) | payer MEDICAID, SELFPAY ==
[2023-05-01 12:40] LABS: Protein, Urine (Random) 18.4 mg/dL (<11.9); Protein:Creat Ratio 94 mg/g CRE (0-200)
[2023-05-01 12:46] LABS: Albumin, Serum 3.4 g/dL (3.2-5.0); BUN 12 mg/dL (7-18); BUN/Creat Ratio 8.5 RATIO (10-20); Calcium,Total 8.5 mg/dL (8.5-10.1); Chloride 107 mmol/L (98-107); Creatinine, Serum 1.41 mg/dL (0.70-1.30); EST Glomerular Filtration Rate 58 mL/min (>60); Est Glom Filt Rate - Afr Amer 71 mL/min (>60); Glucose 96 mg/dL (74-106); Potassium 3.5 mmol/L (3.5-5.1); Sodium Level 138 mmol/L (136-145)
== END | disposition home or self-care (01) ==
LOC: POLAB3 10:43
PROVIDERS: PCP Internal Medicine; Visit Provider Internal Medicine Nephrology
DX: N18.2 Chronic kidney disease, stage 2 (mild) (principal)
CPT/HCPCS: 36415; 80069; 82570; 84156

== ENCOUNTER 2023-05-07 08:00 | Outpatient (RCR) | payer MEDICAID, SELFPAY ==
--- NOTE | 2023-05-07 09:00 | BH.SGPN.GN ---
Behaviors/Verbalizations/Mental Status: [] Eye contact is good. Motor activity is appropriate. Appearance is casual. Speech is Appropriate. Mood is anxious. Affect is congruent. Thoughts are linear and logical. No evidence of psychosis. Reviewed daily check in sheet and no reports of suicidal ideations or intent Client Response/Progress/Benefit: [] Pt did not participate in group discussion AEB by head-nodding and smiling at appropriate times. Today was pt's first day in IOP. He was given the opportunity to introduce himself and discuss what he wanted to work on in IOP however he declined. Pt states I'm not ready yet. Limited progress not as this was pt's first day in IOP. Benefited from group support and encouragement. Group gave advice on what to expect first day and week which was helpful. Will continue in IOP to stabilize mood, increase healthy coping, and improve functioning. Narrative Note: []
--- NOTE | 2023-05-07 10:15 | BH.SGPN.GN ---
Behaviors/Verbalizations/Mental Status: []Pt alert and oriented, neatly dressed and groomed. Eye contact good. Motor activity appropriate. Speech within normal limits. Affect congruent, mood anxious. Thoughts linear, logical, no signs of hallucinations or delusions. Client Response/Progress/Benefit: [] Pt was a passive participant in group discussions and activities. Attentive during psychoeducation. Pt listened during interactive discussion in which the group defined self-care and discussed its benefits. ?Worked with peers in a small group to identify myths related to self-care which included; Self-care should only be done when ?you?re empty? and that not everyone deserves it. Pt participated in small groups where they worked to bust these self-care myths. Benefited from increased awareness of self-care, its benefits, and the consequences of not utilizing self-care strategies. Pt was mostly quiet, but took notes and engaged in his small group. Will continue IOP tx to prevent decompensation, improve mood stability, and reduce irritability. ? Narrative Note: []
--- NOTE | 2023-05-07 11:15 | BH.SGPN.GN ---
Behaviors/Verbalizations/Mental Status: []Pt alert and oriented, neatly dressed and groomed. Eye contact good. Motor activity appropriate. Speech within normal limits. Affect congruent, mood anxious. Thoughts linear, logical, no signs of hallucinations or delusions. Client Response/Progress/Benefit: [] Pt engaged participant AEB completing self-assessment worksheet and providing input throughout discussion. Participated in group discussion on the various areas of self-care. Pt completed worksheet identifying current self-care practices and what self-care activities pt wants to start using. Pt selected emotional self-care to begin practicing more consistently. Pt plans to do this by practicing the G.L.A.D journaling prompt to give himself credit and practice gratitude. Appeared to benefit from completing the self-care evaluation and gaining insights into current self-care practices, as well as identifying areas in which pt would like to improve upon.?Pt?s first day of IOP tx. Pt will continue IOP tx to prevent decompensation, increase emotional regulation skills, and improve daily functioning. ? Narrative Note: []
--- NOTE | 2023-05-07 14:07 | BH.COMM ---
Communication Note Communication with Client Communication Note: Communication Note: Therapist met with pt to complete initial paperwork. Completed the CSSR-S and pt is low risk. No history of SI, thoughts of , or history of suicide attempts. No history of self-harming behaviors. Pt denies any access to weapons. Consulted with Dr. Tompkins and will admit to IOP level of care with a diagnosis of F 33.2
== END 2023-05-07 23:59 ==
LOC: BHIOP 08:00
PROVIDERS: PCP Internal Medicine; Referring Provider Psychiatry & Neurology Psychiatry; Visit Provider Psychiatry & Neurology Psychiatry
DX: F33.2 Major depressive disorder, recurrent severe without psychotic features (principal)
CPT/HCPCS: H2020

== ENCOUNTER 2023-05-08 07:17 | Outpatient (RCR) | payer MEDICAID, SELFPAY ==
--- NOTE | 2023-05-08 09:05 | BH.SGPN.GN ---
Behaviors/Verbalizations/Mental Status: [] Pt alert and oriented, neatly dressed and groomed. Eye contact good. Motor activity appropriate. Speech within normal limits. Affect congruent, mood euthymic. Thoughts linear, logical, no signs of hallucinations or delusions. Reviewed pt?s symptom tracker, no risk for suicidal ideation, plan, or intent 05/08/23 Client Response/Progress/Benefit: []Pt responded well to session, attentive and engaged. Pt reports feeling uncertain this morning as pt is wanting to work on his quick responses at work and become a better communicator. Pt shared he is trying to learn how to leave work at work. Pt's mental health wins today include going to the gym after IOP instead of going home and sleeping and learning from IOP. Pt appeared to benefit from reflecting on their increased self-awareness. Pt will continue IOP tx to promote mood stability, reduce negative thinking patterns, and improve daily functioning. Narrative Note: []
--- NOTE | 2023-05-08 10:05 | BH.SGPN.GN ---
Behaviors/Verbalizations/Mental Status: [] Eye contact is good. Motor activity is appropriate. Appearance is casual. Speech is Appropriate. Mood is anxious. Affect is congruent. Thoughts are linear and logical. No evidence of psychosis Client Response/Progress/Benefit: [] Pt was an active participant in group discussions. Attentive during psychoeducation on 4 Communication Styles (Passive, Passive-Aggressive, Aggressive, Assertive). Convened in small group and participated during interactive discussion on benefits and disadvantages of each communication style. Majority of this group was based in introducing and educating on communication styles. Pt beleives that he starts off passive to meet others needs, however this leads to resentment. Benefited from increased education and awareness on communication styles and thier impact on relationships/mental health. Will continue in IOP to prevent decompensation and increase healthy coping skills. Narrative Note: []
--- NOTE | 2023-05-08 11:10 | BH.SGPN.GN ---
Behaviors/Verbalizations/Mental Status: []Client alert and oriented, casually dressed and appropriately groomed. Eye contact fair. Motor activity appropriate. Speech WNL. Affect congruent, mood euthymic. Thoughts linear, logical, no signs of hallucinations or delusions. Client Response/Progress/Benefit: []Client responded well to session AEB client listening attentively to others and providing input during group discussion on the pay offs and costs of the different communication styles. Client able to connect how current communication style impacts mental health. Client engaged in activity, used assertive communication throughout in order to accomplish task. Connected with peers comments about importance of using assertive communication. Client shared he struggles with being passive and not being able to say no. Client stated he wants to work on saying no when he can't do something. Client seemed to benefit from increasing awareness of healthy strategies to improve communication. Will continue IOP tx to increase confidence, challenge distortions, and prevent decompensation.
--- NOTE | 2023-05-08 14:57 | BH.MTP ---
Master Treatment Plan Patient Information Program Physician:: Dr. Escobar Primary Therapist:: Joanna Mendez [facility] Psychiatric Diagnoses Psychiatric Diagnoses:: 1. Major depressive disorder, recurrent, severe without psychosis 2. Generalized anxiety disorder 3. Obstructive sleep apnea using CPAP 4. Marijuana use disorder Diagnosis Code(s):: F33.2 Estimated LOS Estimated LOS (in weeks):: 6 Problem/Goal #1 Problem/Goal #1 Stated Goal:: Client will reduce depression and agitation/anger due to Major Depressive Disorder through IOP Services. Description of Barriers: Possible barriers include: negative thoughts, low motivation, distorted thoughts, irritability, and anxious thoughts. Functional Impact: The patient is a 42-year-old -[place] male with a history of depression and anxiety for years and years who was referred to the [facility] [place] IOP program by a coworker who attended the program in the past. The patient's depression has been impacting his ability to function well at work and he has been talked to by managers a few times for being verbally somewhat aggressive at work. He states that he has a somewhat erratic mood which sometimes changes 1 minute to the next he denies any symptoms of lucille or hypomania ever but states that he does a lot of negative thinking about himself and describes himself as having low self-esteem. He endorses a sad and depressed mood with occasional crying. He endorses hopelessness, worthlessness, anhedonia, low energy, decreased concentration and guilt. Objectives Objective #1: Stated Objective: Client will learn and utilize 2-3 healthy coping strategies to manage depressive symptoms as shown by reduced DSM-5 cross-cutting symptom measure score. Interventions: Therapist and groups will help client identify triggers and warning signs of depression and will teach client various coping skills to manage client?s symptoms and give client tangible resources to use to regulate emotions. Discharge Criteria: Therapist will help client identify triggers and warning signs of depression and will teach client various coping skills to manage client?s symptoms and give client tangible resources to use to regulate emotions. Target Date: 06/18/23 Review Date: 06/04/23 Objective #2: Stated Objective: Identify, challenge, and replace anger-inducing self-talk with self-talk that facilitates a less angry reaction. Interventions: Through individual and group therapy will explore the client?s self-talk that triggers angry feelings and actions. Identify and challenge biases, assisting him in generating appraisals and self-talk that corrects for the biases and facilitates a more flexible response to frustration. Combine new self-talk with calming skills as par of a set of coping skills to manage anger. Discharge Criteria: Client will have met this objective when can identify at least 3 self-talk thoughts that trigger anger and be able to reframe thoughts to more realistic response. Target Date: 06/18/23 Review Date: 06/04/23 Problem/Goal #2 Problem/Goal #2 Stated Goal:: Stabilize anxiety level while increasing ability to function and decreasing ruminative thoughts on a daily basis through Intensive Outpatient Program. Description of Barriers: Possible barriers include: negative thoughts, low motivation, distorted thoughts, irritability, and anxious thoughts. Functional Impact: The patient is a 42-year-old -[place] male with a history of depression and anxiety for years and years who was referred to the [facility] [place] IOP program by a coworker who attended the program in the past. The patient's depression has been impacting his ability to function well at work and he has been talked to by managers a few times for being verbally somewhat aggressive at work. He states that he has a somewhat erratic mood which sometimes changes 1 minute to the next he denies any symptoms of lucille or hypomania ever but states that he does a lot of negative thinking about himself and describes himself as having low self-esteem. He endorses a sad and depressed mood with occasional crying. He endorses hopelessness, worthlessness, anhedonia, low energy, decreased concentration and guilt. Objectives Objective #1: Stated Objective: Stabilize anxiety level while increasing ability to function and decreasing ruminative thoughts on a daily basis through Intensive Outpatient Program. Interventions: Therapist and group therapy will teach calming/relaxation skills and how to apply these skills to everyday life. Discharge Criteria: Client will have achieved this goal when can verbalize and consistently utilize at least 2 calming strategies that client reports help decrease anxious symptoms. Target Date: 06/18/23 Review Date: 06/04/23 Objective #2: Stated Objective: Pt will decrease anxious symptoms AEB pt?s score on the DSM 5 cross-cutting measure improve pt?s daily functioning. Interventions: Through groups and individual therapy, pt will be provided education about anxiety?s impact on body and common physiological reaction to anxiety. Therapist will teach pt appropriate breathing techniques and build healthy coping skills to manage daily anxieties. Discharge Criteria: Through groups and individual therapy, pt will be provided education about anxiety?s impact on body and common physiological reaction to anxiety. Therapist will teach pt appropriate breathing techniques and build healthy coping skills to manage daily anxieties. Target Date: 06/18/23 Review Date: 06/04/23
--- NOTE | 2023-05-08 15:38 | BH.MDN ---
Multi-Disciplinary Note Note 30-min Individual: Time Started:: 12:05 Date: 05/08/23 Purpose of session/treatment goals addressed:: Purpose of session was to gather background information, build rapport, and identify treatment goals. 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 Pt stated he has noticed he has been struggling with getting easily annoyed at work and will intentionally ignore certain co-workers if upset with them. Pt reported he has noticed recently he has been choosing what mood to be in before he shows up to work and sometimes will maintain a angry mood all shift. Pt stated he also has stopped engaging in activities he used to enjoy like watching tennis matches and going to Tu shows. Client reported he feels like his mood is more down lately. Client stated situations can easily impact his mood which results in quick mood shifts throughout his day. Client reported he will get in a down place when he thinks about not being further enough in life. Client responded well to psychoeducation about cognitive behavioral therapy and the cognitive triangle. Client connected to behavior activation and thought challenge. Client agreeable to start to complete a thought log because he thinks his thoughts are a big trigger to his behavioral responses at work. Client reported while in IOP if he would also like to learn better communication skills and how to manage conflict more effectively. Risks/Concerns:: Denies suicidal ideation, plan, or intention. Progress Toward Goals/Plan:: Patient responded well to first individual session as evidenced by opening up to therapist and willingness to learn different ideas and strategies. For session focused on building rapport gathering background information and identifying treatment goals. Client would like to learn how to better communicate with others and improved ability to manage his emotions in the moment. Client's mental symptoms seemed to have been impacting his ability to along with coworkers and has received numerous complaints at work about his passive aggressiveness. Client is to continue IOP to improve daily functioning, challenge distortions, and prevent decompensation. Time Stopped:: 12:35
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
--- NOTE | 2023-05-09 09:30 | BH.NA ---
Physical Data Vital Signs Pulse Rate: 60 Blood Pressure: 142/76 Height/Weight Height: 1.91 m Weight:: 141.974 kg Weight in Pounds: 313.0 lbs Current Medication Compliance Medication Compliance Do you take your medication as prescribed?: Yes Nutritional History Appetite Nutritional Instructions: Describe your appetite:: Good (Client states he has lost about 50lbs intentionally since November being on Ozempic and Metformin, but states appetite is still good.) Functional Assessment Sleep Pattern Describe any problems with sleeping: Client states he usually sleeps 10 or more hours, but is sleeping 7-8 per night since he has to get up earlier than usual to come to [facility]. Sensory/Communication Assess Communication Problems Do you have difficulty understanding what people are saying?: No Medical Problems/History Cardiac Conditions Cardiovascular: Hypertension Respiratory Conditions Respiratory: Asthma and Other (See comments) (SELWYN- uses CPAP) Gastrointestinal Conditions Gastrointestinal: Other (See comments) (GERD) Musculoskeletal Conditions Musculoskeletal: Arthritis (in feet) Pain Assessment Do you have acute or chronic pain?: Yes (feet) Family History Family History Mother Diabetes Hypertension Additional History Additional comments:: HIV positive Surgical History Surgical History Have you had any surgeries? If so, list type and date:: Yes (wisdom teeth) Substance Abuse Substance Abuse Please describe substance abuse in the last 30 days:: Client states he drinks alcohol about 2-3 times per week, usually 2 drinks per time. Client states he has been a cigarette smoker for about 20 years but is currently trying to quit and is down to 3-4 cigarettes per day. Client states he has a medical marijuana card and he usually uses marijuana two times daily. Client states he sometimes drinks coffee, but does have 2 pops per day with caffeine. Mental Status Summary Mental Status Significant Findings/Observations on Appearance and Mood:: Client is alert and oriented x 4. Client is casually groomed with good hygiene. Client is cooperative with assessment. Client makes good eye contact. Client's voice has normal rate and volume. Client has an appropriate affect and makes logical associations. Client has normal processing. Client denies delusions/hallucinations. Client denies SI. Suicide Assessment Suicidal Ideation Are you currently or have you been suicidal in the past?: No Suicidal Intentional Rating Scale (SIRS): No suicidal thoughts (past or present) Physician Notification Past Psychiatric History MH Treatment Hx Past Psychiatric Medications:: Prozac (for about 15 years), Cymbalta Age of first mental health symptoms: Client states he has had anxiety and depression for many many years and states he was first on an antidepressant around age 20. Describe (age, circumstance, etc) any past hospitalizations: None. Current providers for mental health treatment (counselor, psychiatrist, correctional casework specialist, etc.): Has an appointment to establish care with Dr. Beltran for psychiatry this fall Fall Risk Assessment Age Age: Less than 60 Mental Status Mental Status: Willing & able to ask for assistance when needed Physical Status Physical Status: No problems Impairments Impairments: None Elimination Elimination: Continent AND independent Gait or Balance Gait or Balance: Walks independently Hx of Falls History of falls in the past 6 months: No known history Medications/Substances Psychotropics:: Antidepressants Others:: Antihypertensives and Diuretics Medications/substances used within the past 24 hours or ordered to administer: 3 or more of the medications/substances listed above Total Score Total Points:: 2 RN Summary of Impressions Impressions Recommendations Impression: General Medical Conditions: Client told this nurse he has been taking Chantix to help him stop smoking but states he forgot to mention it to Dr. Escobar. This nurse informed Dr. Escobar about Chantix. Level of Care How do the client's current symptoms and functional deficits support need for this level of care?: Client was referred to IOP by a co-worker for increased irritability and anxiety. Client states for about the past 1.5-2 years, he has had a lot of irritability, erratic mood, losing interest in activities he usually enjoys, and being verbally aggressive at work at times. Client denies SI. IOP will promote gains and prevent further decompensation while providing social support and skills training.
[2023-05-09 09:40] VITALS: BP 142/76; PULSE 60
--- NOTE | 2023-05-09 10:10 | BH.SGPN.GN ---
Behaviors/Verbalizations/Mental Status: [] Eye contact is fair. Motor activity is appropriate. Appearance is casual. Speech is Appropriate. Mood is anxious. Affect is congruent. Thoughts are linear and logical. No evidence of psychosis or hallucinations. Client Response/Progress/Benefit: [] Pt was an active participant in group discussion and activity. Attentive during psychoeducation. Along with peers was able to identify barriers to taking action on her mental health which included: fear of failure, the unknown, change, one's environment, past negative experiences, being passive, and fear of vulnerability. Identified several symptoms and stressors that he feels are holding him back from progress such as not practicing self-care, negative thoughts, and racing thoughts. Benefited from increased self-awareness of obstacles. Will continue in IOP to continue use of healthy coping skills, improve communication skills, and prevent decompensation.
--- NOTE | 2023-05-09 11:10 | BH.SGPN.GN ---
Behaviors/Verbalizations/Mental Status: []Pt alert and oriented, neatly dressed and groomed. Eye contact good. Motor activity appropriate. Speech within normal limits. Affect congruent, mood euthymic. Thoughts linear, logical, no signs of hallucinations or delusions. Client Response/Progress/Benefit: []Pt responded well to session, taking notes and participating in worksheet discussion. Pt connected with the zones of action/change and that making sustainable change comes from stepping out of one?s comfort zone into the learning zone. Pt set a goal to gain control over pt?s negative self-talk. Pt reported plans to challenge self to say positive statements to self once a day. Pt identified support pt will need as a journal and a list of positive affirmations. Appeared to benefit from identifying a small goal to benefit mental health. Will continue IOP tx to promote mood stability, reduce negative thinking patterns, and increase emotional regulation skills. Narrative Note: []
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
--- NOTE | 2023-05-09 11:38 | BH.DR.ITP ---
Initial Treatment Plan Patient Information Visit Information: ADMISSION DATE: EXPECTED LOS: 4-6 weeks Problems/Symptoms Problem #1:: Depression Symptom:: Sadness, hopelessness, worthlessness, guilt, anhedonia, low energy, decreased concentration Problem #2:: Anxiety Symptom:: Worry, rumination, avoidance
--- NOTE | 2023-05-14 09:01 | BH.SGPN.GN ---
Behaviors/Verbalizations/Mental Status: []Pt alert and oriented, casually dressed and groomed. Eye contact good. Motor activity appropriate. Speech within normal limits. Affect congruent, mood anxious but euthymic. Thoughts linear, logical, no signs of hallucinations or delusions. Reviewed pt?s symptom tracker, no suicidal ideation reported, denies plan, or active intent as of 05/14/23. Client Response/Progress/Benefit: []Pt responded well to session, open to processing with group and engaged. 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 Shared this is his current stressor, but he feels he is ready to confront the conflict. Identified plans to write down bullet points he wants to address in the meeting and listen to calming music no his drive in. Able to identify current mental health wins, sharing that he spent time with his mother over the weekend as well as accomplished several cleaning goals around the house. Expressed feeling more accomplished and relaxed as a result. Pt appeared to benefit from supportive feedback of the group, as well as reflecting on mental health wins. Pt will continue IOP tx to promote mood stability, improve self-compassion, and continue to improve functioning. Narrative Note: []
--- NOTE | 2023-05-14 10:15 | BH.SGPN.GN ---
Behaviors/Verbalizations/Mental Status: []Eye contact is good. Motor activity is appropriate. Appearance is casual. Speech is Appropriate. Mood is anxious. Affect is congruent. Thoughts are linear and logical. No evidence of psychosis. Client Response/Progress/Benefit: []Pt participated during the group discussion. Attentive during psychoeducation and actively engaged during experiential activity. Participated during interactive discussion on aspects of fixed mindset. Group identified several aspects of fixed mindset which include: inflexible, belief that one cannot grow, absolute thinking, and all of one's skills, traits, and behaviors can't change. Group identified personal examples of fixed thinking in which pt shared personal fixed thoughts as: I'm not smart enough and They will never give me a chance. Benefited from increased understanding of personal fixed mindsets and how they can impact mental health. Will continue in IOP to increase confidence, improve view of self, and prevent decompensation.
--- NOTE | 2023-05-14 11:15 | BH.SGPN.GN ---
Behaviors/Verbalizations/Mental Status: []Pt alert and oriented, neatly dressed and groomed. Eye contact good. Motor activity appropriate. Speech within normal limits. Affect congruent, mood euthymic. Thoughts linear, logical, no signs of hallucinations or delusions. Client Response/Progress/Benefit: []Pt was an active participant during activity and discussion AEB providing some input, connecting with peers, as well as taking notes throughout. Pt did well to engage as group worked on identifying characteristics and benefits of adopting a growth mindset. Worked with fellow participants in reframing the example fixed thoughts into growth mindset thoughts. Pt worked on changing own fixed thought of ?I?m not smart enough? to growth thought of ?I can always learn and take classes.? Benefitted from discussing benefits of growth mindset and brainstorming strategies for prompting growth-mindset. Pt appeared to benefit from working in small groups to challenge own thoughts and help peers. Pt will continue IOP tx to reduce negative thinking patterns and improve mood stability. Narrative Note: []
--- NOTE | 2023-05-15 09:00 | BH.SGPN.GN ---
Behaviors/Verbalizations/Mental Status: [] Pt alert and oriented, neatly dressed and groomed. Eye contact good. Motor activity appropriate. Speech within normal limits. Affect congruent, mood euthymic. Thoughts linear, logical, no signs of hallucinations or delusions. Reviewed pt?s symptom tracker, no risk for suicidal ideation, plan, or intent 05/15/23 Client Response/Progress/Benefit: []Pt responded well to session, attentive and engaged. Pt reports feeling fantastic this morning after having a difficult conversation with his regional project manager and being an advocate for himself. Pt shared he feels like he handled the situation well and was not emotionally reactive. Pt plans to work out today and see Dr. Beltran for his first appointment. Pt's stressor today is that his lease is up at the end of the month and pt is not sure where to move. Pt got feedback from peers on options for moving which pt appeared to benefit from. Pt will continue IOP tx to promote gains, improve emotional regulation skills, and improve self-confidence. Narrative Note: []
--- NOTE | 2023-05-15 10:10 | BH.SGPN.GN ---
Behaviors/Verbalizations/Mental Status: []Pt alert and oriented, appropriate grooming/appearance. Eye contact good. Motor activity appropriate. Speech within normal limits. Affect congruent, mood anxious. Thoughts linear, logical, no signs of hallucinations or delusions. Client Response/Progress/Benefit: []Pt was an engaged participant AEB taking notes, engaging in small group discussion and listening attentively to others. Attentive during psychoeducation. Contributed during interactive discussions in which peers attempted to define crisis. Pt identified some examples of potential crisis. Group also worked together to identify unhealthy responses to crisis which included: isolation, self-harm, substance abuse, avoidance, and lashing out. Pt identified personal warning signs as: negative thoughts, lack of self-care, and apathy. Benefited from increased understanding of crisis and awareness of personal responses to crisis. Pt will continue IOP tx to continue use of healthy coping, challenge negative thoughts, and prevent decompensation.
--- NOTE | 2023-05-15 11:05 | BH.SGPN.GN ---
Behaviors/Verbalizations/Mental Status: [] Eye contact is good. Motor activity is appropriate. Appearance is casual. Speech is Appropriate. Mood is anxious. Affect is congruent. Thoughts are linear and logical. No evidence of psychosis Client Response/Progress/Benefit: [] Pt was an active participant in group discussions. Attentive during psychoeducation. In small group pt along with peers developed an active plan for their crisis warning signs. Pt identified two crisis warning signs as well as an action plan for each. One crisis warning sign is lack of self-care with an actions plan that involved; sticking to schedule, setting time to relax, putting self first, setting boundaries, and setting goals. Second warning sign was apathy with an action plan that involved; watching a funny movie, activities (walking gym tennis), writing down what I;m grateful for. . Benefited from increased awareness of crisis warning signs and by developing crisis intervention strategies. Will continue in IOP to prevent decompensation, increase healthy coping, and improve functioning. Narrative Note: []
--- NOTE | 2023-05-16 10:00 | BH.SGPN.GN ---
Behaviors/Verbalizations/Mental Status: [] Eye contact is good. Motor activity is appropriate. Appearance is casual. Speech is Appropriate. Mood is anxious. Affect is congruent. Thoughts are linear and logical. No evidence of psychosis. Reviewed daily check in sheet and no reports of suicidal ideations or intent. Client Response/Progress/Benefit: [] Pt participated at times during the group discussion. Attentive. Daily symptom tracker notes 12/10 for anxiety. Pt shared the steps that he took yesterday that helped him manage his thoughts and emotions more effectively yesterday. Insight into what made yesterday beneficial as he completed self-care, was social, and completed daily tasks. Was also started a new sleep medication which was helpful. He shared upcoming stressors today as well as an example of utilizing assertive communication at work. Progress noted per pt report. Benefited from group support, encouragement, and feedback. Will continue in IOP to prevent decompensation, increase healthy coping, and decrease anxiety. Narrative Note: []
--- NOTE | 2023-05-16 10:15 | BH.SGPN.GN ---
Behaviors/Verbalizations/Mental Status: []Pt alert and oriented, neatly dressed and groomed. Eye contact good. Motor activity appropriate. Speech within normal limits. Affect congruent, mood euthymic. Thoughts linear, logical, no signs of hallucinations or delusions. Client Response/Progress/Benefit: [] Pt receptive to session AEB contributing to discussion, as well listening attentively to others, and taking notes. Worked with group to brainstorm the positive and negative aspects of stress on physical and mental health. Group did well to identify the benefits of stress as well as the impact of distress on performance, relationships, and mental health. Pt identified their personal top stressors as: work, keeping up with his routine, and relationships. Pt seemed to benefit from increased awareness of current stressors and impact stress has on mental health. Recommended to continue IOP tx to improve daily functioning, increase emotional regulation skills, and improve self-compassion. ? Narrative Note: []
--- NOTE | 2023-05-16 11:15 | BH.SGPN.GN ---
Behaviors/Verbalizations/Mental Status: [] Eye contact is good. Motor activity is appropriate. Appearance is casual. Speech is Appropriate. Mood is content. Affect is congruent. Thoughts are linear and logical. No evidence of psychosis. Client Response/Progress/Benefit: []Pt was an active participant in group discussions and experiential activity. Attentive during psychoeducation on the 4 A's (Avoid, adapt, alter, accept) of coping with stress as well as strategies to identify stressors in which one has no control, little control, or a great deal of control over. Shared that he would benefit most from working on accept in regards to coping with the behavior of other people in his work environment and reminding himself to focus on what is in his own control in the situation. Was able to identify the connection between the experimental activity and utilization of stress management skills. Benefited from increased awareness of stress management strategies. Will continue in IOP to maintain mood stability, prevent decompensation, and to increase healthy coping skill application. Narrative Note: []
--- NOTE | 2023-05-16 15:35 | BH.MDN ---
Multi-Disciplinary Note Note 30-min Individual: Time Started:: 12:07 Date: 05/16/23 Purpose of session/treatment goals addressed:: Purpose of session was to address goals 1 and 2 from MTP. Eye Contact:: Fair Motor Activity:: Appropriate Appearance:: Casual Speech:: Appropriate Mood:: Euthymic Affect:: Congruent Thoughts:: Linear, Logical and No evidence of hallucinations/delusions noted Staff Interventions:: thought challenging, psychoeducation on: (Anger cycle), CBT techniques, mindfulness skills, rapport building, strengths perspective and taught coping skills Client Response:: Client reported he has been doing better with getting out of bed in the morning instead of sleeping until noon before his work shift he is getting up and accomplishing things. Client reported he is trying to adjust to the sleep medication and is feeling a little groggy when he wakes up but is given it a try because he to start the medication. Client noted in general he feels like his mood is improving and is doing better with managing his emotions. Client receptive to learning about the anger cycle and able to connect how his evaluation of a situation is what typically triggers his anger response. Client's shared example if he is told by a cook that he messed up the order he will immediately go figure out that he was right and then go back and when he expresses how he is correct to the cook he does not in a more sarcastic and rude way. Client able to connect one of his triggers is being told that he is wrong and finding the needs to immediately prove that he is right. Client recognizes he can still communicate that he was correct in putting the order at work but wants to work on communicating more respectfully and assertively next time. Client did not complete homework from last individual session of completing thought log. Client open to practicing calming skills like grounding and belly breathing. Therapist taught the skills in session and provided handouts on different grounding and breathing techniques. Risks/Concerns:: Denies suicidal ideation, intention, and plan. Future oriented. Progress Toward Goals/Plan:: Progress noted with client reporting improved function in the morning and improved overall mood over the last week. Client still struggling with adjusting to his new sleep medication. Client is starting to gain more insight and awareness into how his thought patterns negatively impact his mood and result in increased passive aggressiveness towards others. Client to continue IOP to decrease anger outbursts, improved mood, and prevent decompensation. Time Stopped:: 12:40
--- NOTE | 2023-05-21 09:10 | BH.SGPN.GN ---
Behaviors/Verbalizations/Mental Status: [] Eye contact is poor. Motor activity is appropriate. Appearance is casual. Speech is Appropriate. Mood is depressed. Affect is flat. Thoughts are linear and logical. No evidence of psychosis. Reviewed daily check in sheet and no reports of suicidal ideations or intent. Client Response/Progress/Benefit: [] Pt participated when prompted. Attentive at times however appeared distracted this AM. Daily symptom tracker notes 4/5 for anxiety and 3/5 for irritability. Mental health win is that he has managed not to ruminate regarding work issues. He reports that he communicated his concerns/needs assertively which he is proud about. Reports increase anxiety, restlessness, and irritability over the weekend. Also reports poor sleep. Unable to find a specific trigger and is wondering if it is related to an increase in his medications. Emotion for today is anxious. He primary coping skills this weekend was self-care. Reported increased isolation as well. Limited progress noted per pt report. Benefited from group support, encouragement, and feedback. Will continue in IOP to prevent decompensation, stabilize mood, and increase healthy coping. Narrative Note: []
--- NOTE | 2023-05-21 10:20 | BH.SGPN.GN ---
Behaviors/Verbalizations/Mental Status: []Pt alert and oriented, neatly dressed and groomed. Eye contact good. Motor activity appropriate. Speech within normal limits. Affect congruent, mood euthymic. Thoughts linear, logical, no signs of hallucinations or delusions. Client Response/Progress/Benefit: []Pt participated in group discussions. Attentive during psychoeducation on stages of change. Participated during experiential activity. Interactive group discussion on why change is difficult in which group verbalized that change involves the unknown, is scary, leads to uncertainly, makes one feel vulnerable, leads to fear of failure, and triggers the pressure of success. Pt feels that change can be good, ?but sometimes people have to get used to you changing and they don?t like it.? Pt benefitted from increased awareness of stages of changes and how emotions impact change. Will continue IOP tx to promote mood stability, increase interpersonal effectiveness skills, and improve daily functioning. Narrative Note: []
--- NOTE | 2023-05-21 11:20 | BH.SGPN.GN ---
Behaviors/Verbalizations/Mental Status: []Pt alert and oriented, casually dressed and groomed. Eye contact good. Motor activity appropriate. Speech within normal limits. Affect congruent, mood anxious and content. Thoughts linear, logical, no signs of hallucinations or delusions. Client Response/Progress/Benefit: []Pt responded well to session, attentive. Did well to process activity and work with group to relate the strategies used to overcome barriers in the activity to managing change in own life. Pt identified wanting to work on improving his outlook on life to be more positive. Pt identified a barrier as automatic negative thoughts. Shared following through with this change will improve his mood and personal relationships. Pt?s goal today is to listen to a positive podcast or TedTalk. Pt will continue IOP tx to further improve mental health insight, promote continued communication and boundary setting with supports, and prevent decompensation. Narrative Note: []
--- NOTE | 2023-05-23 09:05 | BH.SGPN.GN ---
Behaviors/Verbalizations/Mental Status: [] Pt alert and oriented, neatly dressed and groomed. Eye contact good. Motor activity appropriate. Speech within normal limits. Affect congruent, mood euthymic and nervous. Thoughts linear, logical, no signs of hallucinations or delusions. Reviewed pt?s symptom tracker, no risk for suicidal ideation, plan, or intent 05/23/23 Client Response/Progress/Benefit: []Pt responded well to session, attentive and engaged. Pt reports feeling nervous today because there are a lot of unknowns in pt's life. Pt shared he and his plan to move and were informed they would get an apartment in the same complex, but they are still waiting and do not want to pay double rent. 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 Pt's wins today included spending time with his mother yesterday and starting to pack. Pt appeared to benefit from reflecting on his wins and connecting with peers. Pt will continue IOP tx to promote mood stability, increase emotional regulation skills, and further improve daily functioning. Narrative Note: []
--- NOTE | 2023-05-23 10:10 | BH.SGPN.GN ---
Behaviors/Verbalizations/Mental Status: [] Client alert and oriented, casually dressed and poorly groomed. Eye contact fair. Motor activity appropriate. Speech within normal limits. Affect constricted, mood euthymic. Thoughts linear, logical, no signs of hallucinations or delusions. Client Response/Progress/Benefit: []Client was a mostly passive participant in group session AEB limited contributions, however did appear to listen attentively to others. Attentive during psychoeducation on coping skills, why people use unhealthy coping skills, and how to replace unhealthy coping skills. Group came up with list of negative coping skills that included substance use, avoidance, lashing out, and escaping from reality. Group discussed the effects of how negative coping skills can impact mental health in a negative way. Benefited from increased understanding of unhealthy coping skills and the need for developing healthy interna and external coping skills. client will continue IOP tx to improve communication, decrease reactivity, and prevent decompensation.
--- NOTE | 2023-05-23 12:40 | PCM.BH.PN ---
Progress Note Progress Note: History of Present Illness/Interim History: The patient is a 42-year-old -[place] male with a history of depression and anxiety who is seen in follow-up at the [facility] behavioral health IOP program. I last saw the patient 2 weeks ago and at that time he was started on Zoloft 25 mg p.o. daily. The patient states that he tolerated the Zoloft okay at 25 mg but when he went up to 50 mg he made him sweat more and his sleep decreased. He went back down to 25 mg after 2 or 3 days and now feels fine. He feels that the Zoloft has helped his mood and anxiety. He feels the IOP program is teaching him valuable skills to deal with his mental health issues. Overall the patient says he may be slightly better but not too much has changed in his situation. He remains with a depressed mood and ruminates negatively. His sleep is good with the trazodone on the 25 mg of Zoloft. He is still trying to lose weight using Ozempic and quitting smoking while taking Chantix. He wants to stay on the Chantix for several more months. He denies passive thoughts of , plan for suicide, suicidal ideation, homicidal ideation, hallucinations or delusions. Current Psychiatric Medications: [] Zoloft 25 mg p.o. daily (x2 weeks), unable to tolerate 15 mg of Zoloft. Wellbutrin SR 150 mg p.o. twice daily (times several years); Chantix for 2 months to quit smoking; trazodone 150 mg p.o. nightly for sleep; BuSpar 10 mg p.o. twice daily Mental Status Examination: [] The patient is a 42-year-old -[place] male who is tall and overweight and is otherwise normal for stated age. He is casually dressed and groomed with good hygiene and ambulatory with a normal gait. He has no psychomotor agitation or retardation. He is cooperative and pleasant during the interview. Eye contact is good and speech is normal rate and rhythm and fluent with no pressure. Mood is depressed. Affect is constricted but full and normal at times. Thought process is organized and goal-directed. Thought content: There is evidence of negative rumination. There is no evidence of passive thoughts of , suicidal ideation, plan for suicide, homicidal ideation, hallucinations or delusions. Reality testing is intact. Intelligence is average or above. Judgment is intact. Insight is fair. Diagnoses: [] 1. Major depressive disorder, recurrent, severe without psychosis 2. Generalized anxiety disorder 3. Obstructive sleep apnea using CPAP 4. Marijuana use disorder 5. Primary support and work issues Plan: [] The patient will continue the IOP program as the structure, support, education and group therapy will hopefully prevent worsening of the patient's symptoms. He felt safe during the interview and if it anytime he does not feel safe he will let us know or go to the emergency room. Discussed with the patient that Chantix could have been the reason that his depression worsened in the past few months. Discussed with the patient that losing weight and stopping smoking will have beneficial effects on his long-term health. The patient does not want to wean and discontinue the Wellbutrin despite the fact that he got depressed on it. The patient does not want any chance of any weight gain because he is paying [id number] for Ozempic to lose weight. The patient decides at work and it to stick with the current medication regimen and then when he discontinues Chantix in a few months he can decide if he wants to change his medication regimen around. He will continue to follow-up with his outpatient providers and I will see the patient in follow-up while he is in the IOP program.
--- NOTE | 2023-05-23 16:00 | BH.MDN ---
Multi-Disciplinary Note Note 30-min Individual: Time Started:: 12:05 Date: 05/23/23 Purpose of session/treatment goals addressed:: Purpose of session was to address goals 1 and 2 from MTP. Eye Contact:: Good Motor Activity:: Appropriate Appearance:: Casual Speech:: Appropriate Mood:: Euthymic and Anxious Affect:: Congruent Thoughts:: Linear, Logical and No evidence of hallucinations/delusions noted Staff Interventions:: thought challenging, CBT techniques, strengths perspective and other (communicating about difficult topics) Client Response:: Client reported things had been going really well for the last week, noted his ability to stop himself from reacting immediately is getting better. Client stated he feels like his thoughts are a little slower which helps him think before he says something. Client stated people at work have noticed significant improvement in the way that he manages work relationships and is not being as passive aggressive towards people. Client reported he is come to realization that there is many situations at work that he used to get himself involved in that he recognizes he does not need to get involved in anymore. Client reported he always felt like he had to get involved to stand up for somebody else but is realizing he needs to stop taking care of other people and putting himself last. Client reported he is really focused on looking at what his needs are. Client stated he has been putting a lot of effort into not getting involved in any trauma or spreading rumors while at work which he has has noticed significant improvement in his mood and less irritation. Client reported his current stressor is needing to have a conversation with his and not sure how to articulate what he wants to say. Client worked with therapist to identify the areas that he wants to address that are of concern for client. Client reported one of the areas he was talk to his about his spending at least once a week together because at the current moment he they barely see each other. Client reported he also wants to discuss with his and willingness to split bigger purchases for their home. Client stated he is not sure if cultural differences because his is from [place] is why it is a difficult thing for them to come to agree and son but recognizes it is important to him and needs to communicate this. Client stated additionally he wants to talk to his about going back to how they used to do things with groceries of splitting them 50-50. Client thinks having this conversation will help decrease stress for him and be more honest about his expectations within the relationship. Client reported if things do not change he is not sure he can continue this relationship because he is not really getting his needs met and feels like he has more of a roommate versus a . Client stated he feels comfortable with game plan and will have this conversation this week. Risks/Concerns:: Denies suicidal ideation, plan, and intention. Future oriented. Progress Toward Goals/Plan:: Progress noted with client reporting decreased irritability, decreased reactivity, and improved ability to focus on his own needs and wants. Client noted decreased stress and irritability while at work which is helping improve his job satisfaction. Client stated coworkers are noticing a change in his behavior and attitude throughout the day. Client did have his current stressor and slight anxiety about needing to have conversation with his about some concerns within the relationship. Time Stopped:: 12:35
--- NOTE | 2023-05-24 11:15 | BH.SGPN.GN ---
Behaviors/Verbalizations/Mental Status: [] Client alert and oriented, neatly dressed and groomed. Eye contact good. Motor activity appropriate. Speech within normal limits. Affect congruent, mood anxious and euthymic. Thoughts linear, logical, no signs of hallucinations or delusions. Client Response/Progress/Benefit: [] Client responded well to session AEB taking notes and providing input and examples throughout. Group discussed the different categories of coping skills which included distraction, emotional release, grounding, self-love, and thought challenging. Client created a coping skill menu identifying various skills to try in each category. Client?s coping skill menu included: reading, music, deep breathing, and lópez mind. Appeared to benefit from increasing repertoire of healthy coping skills. Client will continue IOP tx to continue to improve daily functioning, reduce thought patterns that lead to anxiety and increase conflict resolution skills application. Narrative Note: []
--- NOTE | 2023-05-29 09:05 | BH.SGPN.GN ---
Behaviors/Verbalizations/Mental Status: [] Eye contact is good. Motor activity is appropriate. Appearance is casual. Speech is Appropriate. Mood is anxious. Affect is congruent. Thoughts are linear and logical. No evidence of psychosis. Reviewed daily check in sheet and no reports of suicidal ideations or intent. Client Response/Progress/Benefit: [] Pt participated at times during the group discussion. Attentive. Daily symptom tracker notes no significant distress. Mental health wins include improving his assertive communication over the past week. Had a very difficult discussion with his spouse. He discussed how his communication in the past was ineffective and ultimately was a negative impact on her mental health. Since working on his with his therapist he has noticed improved quaility of life at home and work. Emotion for today is happy. Progress noted per pt report as he is utilizing skills and implementing psychoeducation. Benefited from group support, encouragment, and feedback. Will continue in IOP to prevent decompensation, increase healthy coping, and to anxiety. Narrative Note: []
--- NOTE | 2023-05-29 10:10 | BH.SGPN.GN ---
Behaviors/Verbalizations/Mental Status: []Eye contact is good. Motor activity is appropriate. Appearance is casual. Speech is Appropriate. Mood is euthymic. Affect is congruent. Thoughts are linear and logical. No evidence of psychosis. Client Response/Progress/Benefit: []Pt was an active participant in group discussions. Engaged and provided feedback with group on defining anxiety. Along with peers, pt worked to identify the benefits of anxiety. Participated during interactive discussion on how anxiety impacts one physically, cognitively, and behaviorally. Completed worksheet on how anxiety impacts pt physically, cognitively, and behaviorally. Pt shared physically pt experiences increased heart rate, racing thoughts, and sweating hands. Benefited from increased insight into anxiety's benefits and how diagnosable anxiety impacts functioning. Will continue in [facility] tx to promote work-related functioning, improve communication with supports, and further increase mood stability. Narrative Note: []
--- NOTE | 2023-05-29 11:10 | BH.SGPN.GN ---
Behaviors/Verbalizations/Mental Status: []Pt casually dressed and groomed. Eye contact fair. Motor activity appropriate. Speech within normal limits. Affect congruent, mood euthymic. Thoughts linear, logical, no signs of hallucinations or delusions. Client Response/Progress/Benefit: []Pt was a passive participant in full group discussion, however did take notes, attentive to others, and showed increased engagement in small group discussion. Pt identified anxiety safety behaviors for self to include: doesn't return phone calls, staying home in his room, and shutting down. Attentive during psychoeducation on mindfulness and ways to utilize mindfulness techniques to improve anxiety management. The group receptive to learning about belly breathing and grounding tools. Engaged and attentive during group brainstorm of healthy anxiety reduction skills including thought challenging and behavioral changes. Appeared to benefit from practicing in the moment coping skills and increasing repertoire of anxiety management skills. Pt stated grounding and guided meditation as skills would like to practice over the next week. Pt will continue IOP tx to continue use of skills, challenge distortions, and prevent decompensation.
--- NOTE | 2023-05-30 09:00 | BH.SGPN.GN ---
Behaviors/Verbalizations/Mental Status: []Pt eye contact good, neat and casually dressed, motor activity appropriate, speech normal rate and tone, mood euthymic, congruent affect, thoughts linear and intact, no evidence of delusions or hallucinations. Per pt's symptom tracker, no risks noted. Client Response/Progress/Benefit: []Pt responded well to session, attentive and engaged. Pt reports feeling happy this morning as pt feels he has been being productive with his time. Pt shared prior to starting IOP, pt would mostly sleep when he was not working. Pt shared he now goes home and does things around the house and exercises. Pt and his also got the keys to their new apartment, so they can start moving things in. Pt shared that although it is a win, moving is also his stressor. Pt appeared to benefit from reflecting on his growth and application of coping skills. Pt will continue IOP tx to promote mood stability, combat distortions, and improve emotional regulation. Narrative Note: []
--- NOTE | 2023-05-30 10:10 | BH.SGPN.GN ---
Behaviors/Mental Status: [] Eye contact is good. Motor activity is appropriate. Appearance is casual. Speech is Appropriate. Mood is euthymic. Affect is congruent. Thoughts are linear and logical. No evidence of psychosis. Client Response/Progress/Benefit: [] Pt engaged participant AEB listening attentively to others, taking notes, and providing input at times. Participated in and was engaged during experiential activity. Engaged during interactive discussion on what failure means to the group in which peers identified that failure is ... not meeting expectations, not having a desired outcome, and not succeeding in a task. Group was able to identify impact of fear of failure. Client stated fear of failure has kept him at the same job for the last 15 years and keeps him from trying new things. Attentive during interactive discussion on the role that FOF plays in mental wellness, depression, anxiety, and growth. Benefited from increased awareness of how the role that FOF plays in mental health and decision-making. Will continue in IOP to continue use of healthy coping skills, improve confidence, and prevent decompensation.
--- NOTE | 2023-05-30 13:27 | BH.MDN_ITS ---
Multi-Disciplinary Note Note 30-min Individual: Time Started:: 11:20 Date: 05/30/23 Purpose of session/treatment goals addressed:: Purpose of session was to address goals 1 and 2 and review treatment progress. Eye Contact:: Good Motor Activity:: Appropriate Appearance:: Casual Speech:: Appropriate Mood:: Euthymic and Anxious Affect:: Congruent Thoughts:: Linear, Logical and No evidence of hallucinations/delusions noted Staff Interventions:: thought challenging, CBT techniques, strengths perspective, goal setting and other (interest exploration) Client Response:: Client reported he followed through with homework of talking to his about contributing financially to improve their new apartment furniture. Client stated initially there was some push back from his about needing to buy new things when they already have things. Client reported his eventually did come around to see client's perspective and is now willing to help financially. Client reported he chose to not talk to his about needing him to spend more time with client. Client stated he just wanted to address one issue at a time and will have the next conversation this weekend. Client reported he doesn't feel very anxious about the conversation because he knows it's important and needs to express his needs. Client stated since starting IOP he has noticed treatment progress with feeling calmer, able to manage his mood shifts more effectively, improved communication, and improved functioning while at work. Client reported in the last couple weeks of IOP he would like to work on building his confidence and improve sense of purpose. 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 Client reported it's something he knows, is good at, and can find a job anywhere. However, client reported he feels like he could be doing more with his career. Client struggled with identifying what his interests are and what other kind of job he would want to do. Client stated what he currently likes is help ing people, selling things, and interacting with others. Client agreeable to reflect on his interests for homework. Risks/Concerns:: Denies suicidal thoughts, plan, or intention to date. Progress Toward Goals/Plan:: Progress noted with client reporting improved mood, improved communication, decreased reactivity, and decreased passive- aggressiveness at work. Client struggling with not feeling fulfilled at work, but has lacked the confidence to attempt a difference career path. Client to continue IOP to increase healthy coping, challenge distortions, and prevent decompensation.
--- NOTE | 2023-05-30 13:27 | BH.TPR ---
Treatment Plan Review Demographics Date of Admission:: 05/07/23 Date of Treatment Plan Review:: 05/30/23 Admitting Diagnoses:: 1. Major depressive disorder, recurrent, severe without psychosis F33.2 2. Generalized anxiety disorder 3. Marijuana use disorder Current Diagnoses:: 1. Major depressive disorder, recurrent, severe without psychosis F33.2 2. Generalized anxiety disorder 3. Marijuana use disorder Patient Status Patient's Response to Treatment:: Pt consistently attends IOP, passive participant in group sessions, and engaged in individual therapy. Pt often takes notes in group and is doing better with applying skills outside treatment. Progress Problem #1: Problem Name:: Depression Status of Goals:: Obj 1 - met, ongoing encouraged. Pt has been applying healthy coping skills like opposite action, challenging negative thoughts, and setting small goals. Pt's DSM 5 scores indicate a 50% reduction in depression when compared to intake DSM 5 scores. Obj 2 - partial completion, ongoing work encouraged. Pt is showing improvement with being able to interrupt the anger cycle and reports decrease in reactivity at work. Pt's DSM 5 scores indicate a 67% reduction in anger and irritability. Team Recommendations:: Team recommends continue current goals and objectives to show consistent application of skills and maintain gains. Problem #2: Status of Goals:: obj 1 - not met, ongoing work encouraged. Client able to identify healthy calming skills, but could benefit from continued work on consistent application of skills in the moment. Obj 2 - not met. per client's DSM 5 score his anxiety has decreased by 25% compared to intake scores. Team Recommendations:: Team recommends continue current goals and objectives to show consistent application of skills and maintain gains.
--- NOTE | 2023-06-04 09:00 | BH.SGPN.GN ---
Behaviors/Verbalizations/Mental Status: [] Pt eye contact good, neat and casually dressed, motor activity appropriate, speech normal rate and tone, mood euthymic, congruent affect, thoughts linear and intact, no evidence of delusions or hallucinations. Per pt's symptom tracker, no report of SI, plan, or intent as of this date Client Response/Progress/Benefit: [] Client responded well to session as evidenced by listening attentively to others and sharing thoughts and feelings. Client reported mental health positive as communicating his desire to improve quality time with . Noted this went well and they were able to spend some time together Sunday evening. Client reported additional positive as beginning the moving process. Client stated stressor as getting everything moved before the 1st of the month and identified needing to move something in his schedule to ensure he is able to do so. Seemed to benefit from support from peers. Client to continue IOP to continue use of healthy coping skills, work on continued communication with supports, and prevent decompensation. Narrative Note: []
--- NOTE | 2023-06-04 10:10 | BH.SGPN.GN ---
Behaviors/Verbalizations/Mental Status: [] Eye contact is good. Motor activity is appropriate. Appearance is casual. Speech is Appropriate. Mood is euthymic. Affect is congruent. Thoughts are linear and logical. No evidence of psychosis. Client Response/Progress/Benefit: [] Client was an attentive during interactive group discussions by writing notes and sharing when prompted. Attentive during psychoeducation on the six types of boundaries (physical, emotional, intellectual, sexual, time, and material) AEB note-taking. Along with peers contributed to interactive discussion on defining what a boundary is in mental health. Client along with peers identified challenges to setting boundaries which included; fear of other's response, guilt, fear of losing relationships, and lack of confidence. Client along with peers identified the benefits to setting boundaries. Client shared he struggles with setting boundaries because he tends to be a people pleaser. Client benefited from increased awareness and insight on the importance/benefit to setting health boundaries. Will continue in IOP to continue working on managing unhealthy anger responses, continue use of skills, and prevent decompensation.
--- NOTE | 2023-06-04 11:10 | BH.SGPN.GN ---
Behaviors/Verbalizations/Mental Status: []Pt alert and oriented, neatly dressed and groomed. Eye contact good. Motor activity appropriate. Speech within normal limits. Affect congruent, mood euthymic. Thoughts linear, logical, no signs of hallucinations or delusions. Client Response/Progress/Benefit: []Pt responded well to session, engaged and contributing. Pt attentive during psychoeducation on the different boundary styles. Pt reports having porous boundaries which leads to pt people pleasing and not being able to say no which causes burnout. Able to connect impact current boundary styles impact on functioning. Pt was given a handout on strategies for healthy boundary setting. Appeared to benefit from increasing insight to boundary setting and the impacts on mental health. Pt wants to work on asking himself ?what does saying yes say no to?? Will continue IOP tx to promote mood stability, increase emotional regulation skills, and improve daily functioning. Narrative Note: []
--- NOTE | 2023-06-20 13:32 | BH.DS ---
Discharge Summary Demographics Date of Admission:: 05/07/23 Discharge Date: 06/20/23 Presenting Problems at Admission:: The patient is a 42-year-old -[place] male with a history of depression and anxiety for years and years who was referred to the [facility] IOP program by a coworker who attended the program in the past. The patient's depression has been impacting his ability to function well at work and he has been talked to by managers a few times for being verbally somewhat aggressive at work. He states that he has a somewhat erratic mood which sometimes changes 1 minute to the next he denies any symptoms of lucille or hypomania ever but states that he does a lot of negative thinking about himself and describes himself as having low self-esteem. He endorses a sad and depressed mood with occasional crying. He endorses hopelessness, worthlessness, anhedonia, low energy, decreased concentration and guilt. Discharge Diagnoses:: 1. Major depressive disorder, recurrent, severe without psychosis F33.2 2. Generalized anxiety disorder 3. Obstructive sleep apnea using CPAP 4. Marijuana use disorder Reason for Discharge:: Pt has made significant treatment progress and no longer meets criteria for IOP. Treatment Progress During Treatment & Response: Progress noted AEB DSM 5 cross-cutting measure scores which indicate a 100% decrease in depression, 100% decrease in anxiety, 100% decrease in unpleasant thoughts/urges and overall 90% decrease in mental health symptoms. Pt reports improved communication skills, improved assertiveness, self-advocacy, and ability to manage anger more appropriately. Pt consistently attended IOP. Issues Still to be Addressed:: Pt could benefit from continued work on challenging distorted thoughts, reinforcing healthy coping skills, and setting boundaries. Discharge Recommendations/Instructions:: Pt has appointment with Dr. Beltran for psychiatry and Susan Deng for outpatient counseling. Discharge Handout
== END 2023-06-07 23:59 ==
LOC: BHIOP 07:17
PROVIDERS: PCP Internal Medicine; Referring Provider Psychiatry & Neurology Psychiatry; Visit Provider Psychiatry & Neurology Psychiatry
DX: F33.2 Major depressive disorder, recurrent severe without psychotic features (principal); F41.1 Generalized anxiety disorder; G47.33 Obstructive sleep apnea (adult) (pediatric); F12.90 Cannabis use, unspecified, uncomplicated
CPT/HCPCS: 90792; 99214; H2012; H2020; S9480; T1002; 90832

== ENCOUNTER 2023-06-08 08:20 | Outpatient (RCR) | payer MEDICAID, SELFPAY ==
[2023-06-08 00:20] VITALS: BP 142/76; PULSE 60
--- NOTE | 2023-06-13 09:01 | BH.SGPN.GN ---
Behaviors/Verbalizations/Mental Status: []Pt alert and oriented, casually dressed and groomed. Eye contact good. Motor activity appropriate. Speech within normal limits. Affect congruent, mood euthymic, slightly anxious. Thoughts linear, logical, no signs of hallucinations or delusions. Reviewed pt?s symptom tracker, no suicidal ideation reported, denies plan, or active intent. Client Response/Progress/Benefit: []Pt responded well to session, open to processing with group and engaged. Pt reported mental health positive as finishing moving last week which he stated is a huge stress relief. Pt stated additional positive as sending an email to his senior product development manager at work requesting a meeting to address a recent situation at work in which pt didn't feel like was handled well by management. Pt reported he is feeling proud of himself for communicating assertively. Pt stated several weeks ago he wouldn't have advocated for himself. Pt reported current stressor as feeling unsure how his workplace will respond to his request and what the outcome will be. Pt appeared to benefit from supportive feedback of the group, as well as reflecting on mental health wins. Pt will continue IOP tx to continue working on assertive communication, continue use of healthy coping skills, and prevent decompensation.
--- NOTE | 2023-06-13 10:30 | BH.MDN ---
Multi-Disciplinary Note Note 30-min Individual: Time Started:: 10:05 Date: 06/13/23 Purpose of session/treatment goals addressed:: Purpose of session was to address goals 1 and 2 from MTP. Eye Contact:: Good Motor Activity:: Appropriate Appearance:: Casual Speech:: Appropriate Mood:: Euthymic Affect:: Congruent Thoughts:: Linear, Logical and No evidence of hallucinations/delusions noted Staff Interventions:: CBT techniques, discharge planning, strengths perspective, goal setting and other (reviewed skills) Client Response:: Client reported she has been very stable and positive for the last couple weeks. Client stated feeling proud of himself because he is taking steps to request a meeting with his federal district clerk and other coworkers that were involved in a recent event at work. Client shared there is a situation in which another coworker got mad at client and called client a drama sanchez. Client stated he was trying to be helpful and follow the rules at work and this coworker tends to get easily irritable with others and in client's perspective causes issues. Client reported he felt like the inside sales manager that was not on shift at the time did not handle the situation well because the inside sales manager allowed the coworker to complete his statement at home but did not allow client to complete his statement at home. Client stated he also found out there was a report done by a coworker that had witnessed the situation and the inside sales manager claimed this person never turned anything and. Client reported he is no longer allowing games to keep happening at work which is what made him request a meeting to address this with everybody at the same table. Client reported he has reached out to a third alliance party advocate which has instructed him to email and request a meeting in writing with a federal district clerk and if the inside sales manager does not respond then the third alliance party advocate will get involved. Client stated he has put a lot of years at his job and believes that he should not have to continue to experience the harassment and unfair treatment. Client stated usually prime self because in the past he never would have taken the step to address the issue head-on instead he would have continued to be passive aggressive which would continue to cause issues at work. Client reported he is at peace with it ever comes out of this meeting because he knows he is doing the right thing. Client reported he was not let his managers and other coworkers know that he is done playing child's games and just wants to complete his job. Client reported outside of work he feels like he is enjoying life more, not fatigued during the day, is more calm, not staying in bed all day, and better at communicating his needs and wants. Client agreeable he is ready for discharge from [facility] next week. Client agreed to contact the outpatient therapist number that has been provided for him to get that established. Risks/Concerns:: Denies suicidal ideation, plan, and intention. Progress Toward Goals/Plan:: Progress noted with client reporting improved communication, self advocacy, improve mood, decreased fatigue, increased motivation, and starting to enjoy things again. Client requesting this meeting at work demonstrate significant treatment progress for client because in the past he would have just continued to be passive aggressive towards others at work versus addressing the conflict had on and seeking a appropriate resolution for the situation. Client has also shown progress with communicating directly and assertively to his and his needs in regards to spending more quality time together and splitting costs for upgrades to furniture. Client reporting improved confidence and ability to keep himself calm in the moment. Plan is for client to discharge from [facility] next week. Client is established with psychiatry with Dr. Beltran and has an appointment at the end of this month. Client is to reach out to [facility] to establish outpatient counseling. Time Stopped:: 10:27
--- NOTE | 2023-06-13 11:12 | BH.SGPN.GN ---
Behaviors/Verbalizations/Mental Status: []Client alert and oriented, casually dressed and groomed. Eye contact good. Motor activity appropriate. Speech within normal limits. Affect congruent, mood euthymic. Thoughts linear, logical, no signs of hallucinations or delusions. Client Response/Progress/Benefit:?[] Client engaged participant AEB participating in the activity, providing input during small group discussion, and listening attentively to others. Client appeared to connect with discussion in the benefits of addressing mental health stigma which included: improved relationships, increased willingness to seek help, increased happiness, and improved confidence. Group brainstormed strategies to combat social and perceived stigma. ?Client shared one thing he can personally do to combat stigma is to use positive self-talk, self-compassion, and increased understanding through listening to luis-talks. Appeared to benefit from increasing awareness of strategies to combat stigma. Will continue IOP tx to continue to reduce negative self-talk, improve emotion regulation and prevent decompensation. Narrative Note: []
--- NOTE | 2023-06-13 12:52 | PCM.BH.PN_ITS ---
Progress Note Progress Note: History of Present Illness/Interim History: The patient is a 42-year-old -[place] male with a history of depression and anxiety who is seen in follow-up at the [facility] behavioral health IOP program. I last saw the patient 3 weeks ago. The patient states that he is feeling better and feels that his symptoms of depression and anxiety are lessening. He is functioning much better at home and at work. There is still a lot of stress at work but he has requested a meeting to discuss his issues with management. He feels he is learning valuable skills in the IOP program. His mood is much less depressed and he denies any hopelessness now. He has much less fatigue and better energy levels also. He denies passive thoughts of , suicidal ideation, plan for suicide, homicidal ideation, hallucinations or delusions. Current Psychiatric Medications: [] Wellbutrin SR was discontinued at 1 550 mg twice daily and his outpatient psychiatrist increased him to Wellbutrin XL 300 mg p.o. every morning. (This was changed around 2-1/2 weeks ago). Zoloft 50 mg p.o. daily (x5 weeks). Chantix for 2 months to quit smoking. Trazodone 150 mg p.o. nightly for sleep. BuSpar 10 mg twice daily. Mental Status Examination: [] The patient is a 42-year-old -[place] male who is tall and overweight and appears normal for stated age. He is casually dressed and groomed with good hygiene and ambulatory with a normal gait. He has no psychomotor agitation or retardation. He is seen wearing a mask today but is cooperative and pleasant during the interview. Eye contact is good and speech is normal rate and rhythm and fluent with no pressure. Mood is mildly depressed. Affect is full and normal. Thought process is organized and goal- directed. Thought content: There is no evidence of passive thoughts of , suicidal ideation, plan for suicide, homicidal ideation, hallucinations or delusions. Reality testing is intact. Intelligence is average or above. Judgment is intact. Insight is fair to good. Diagnoses: [] 1. Major depressive disorder, recurrent, severe without psychosis (resolving) 2. Generalized anxiety disorder 3. Obstructive sleep apnea using CPAP 4. Marijuana use disorder 5. Primary support and work issues Plan: [] The patient will continue the IOP program as he seems to be improving and learning valuable skills. He felt safe during the interview and if it anytime he does not feel safe he will let us know or go to the emergent emergency room. No medication changes were made as the Wellbutrin dose was recently increased 2 weeks ago. The patient will continue to follow-up with his outpatient providers and I will see the patient in follow-up while he is in the IOP program.
--- NOTE | 2023-06-20 09:05 | BH.SGPN.GN ---
Behaviors/Verbalizations/Mental Status: []Pt alert and oriented, casually dressed and groomed. Eye contact good. Motor activity appropriate. Speech within normal limits. Affect congruent, mood euthymic. Thoughts linear, logical, no signs of hallucinations or delusions. Reviewed pt?s symptom tracker, no suicidal ideation reported, denies plan, or active intent as of 06/20/23. Client Response/Progress/Benefit: [] Pt responded well to session, open to processing with group and engaged. Pt reports feeling grateful this morning. Shared his current mental health wins included buying a washer and dryer for his new apartment, as well as taking steps to schedule a meeting with his regional and district managers to address concerns he has in the workplace. Went on to discuss this is also his current stressor as she does not typically like conflict. Pt did well to identify skills to prepare for the meeting and ensure he is able to regulate his emotions while also effectively advocating for and communicating his needs. Pt appeared to benefit from supportive feedback of the group, as well as reflecting on mental health wins. Pt will d/c from IOP tx given progress and is recommended to continue with outpatient counseling to promote mood stability, continue to encourage skill application, and prevent decompensation. Narrative Note: []
--- NOTE | 2023-06-20 09:53 | BH.MDN ---
Multi-Disciplinary Note Note 30-min Individual: Time Started:: 09:06 Date: 06/20/23 Purpose of session/treatment goals addressed:: Purpose of session was to review treatment progress, complete maintenance plan, and solidify aftercare plans. Eye Contact:: Good Motor Activity:: Appropriate Appearance:: Casual Speech:: Appropriate Mood:: Euthymic Affect:: Full Thoughts:: Linear, Logical and No evidence of hallucinations/delusions noted Staff Interventions:: discharge planning, strengths perspective, reviewed DSM-5 and other (maintenance plan) Client Response:: Client reported things have been going really well in the last week. Client stated he heard back from his research and development manager via phone call after client sent an email expressing some concerns and requesting a meeting. Client reported he met with his research and development manager on Sunday and was able to express Concerns and advocate for himself. Client stated the research and development manager once client to write down his concerns and needs so they can have a meeting next week with the research and development manager and the manager strategic marketing of client's workplace. Client reported he feels positive about how the street manager strategic marketing addressed his concerns and proud of himself for speaking up. Client noticed since he spoke up to the research and development manager the staff at work have been very nice and kind to him. Client recognizes in the past he never would have asserted his needs and took it for management and is glad he was able to do that this time. Client reported things with his continue to improve since their conversations about splitting costs on expensive items and spending more quality time together. Client worked with therapist to create his maintenance plan in which he identified triggers, warning signs, self-care activities, and healthy coping skills. Client identified his triggers to include being mistreated, feeling like he's not heard, and feeling like his needs don't matter. Client identified warning signs to include holding his thoughts and feelings in, increased agitation and passive aggressiveness, and increased sleeping. Client identified self-care activities to include going to the gym, taking time to relax, and cleaning. Client identified healthy coping skills to include thought challenge, opposite action, and breathing. Client notes significant treatment progress since starting IOP with improved self-advocacy, improve the ability to communicate his thoughts and feelings, letting situations and things go that aren't very important to him, decreased passive aggressiveness, and improved optimism and positivity throughout his day. Risks/Concerns:: Client denies suicidal ideation, plan, or intention to date. future oriented. Progress Toward Goals/Plan:: Progress noted AEB DSM 5 cross-cutting measure scores which indicate a 100% decrease in depression, 100% decrease in anxiety, 100% decrease in unpleasant thoughts/urges and overall 90% decrease in mental health symptoms. Pt reports improved communication skills, improved assertiveness, self-advocacy, and ability to manage anger more appropriately. Pt to discharge from [facility] today. Will follow up with Dr. Beltran for outpatient psychiatry and has an appointment at [facility] end of June. Time Stopped:: 09:27
--- NOTE | 2023-06-20 11:15 | BH.SGPN.GN ---
Behaviors/Verbalizations/Mental Status: []Pt alert and oriented, casually dressed and groomed. Eye contact good. Motor activity appropriate. Speech within normal limits. Affect congruent, mood euthymic. Thoughts linear, logical, no signs of hallucinations or delusions. Client Response/Progress/Benefit: [] Pt was an active participant AEB providing input and was actively taking notes. Connected with the topic of pitfalls and listened to group discussion on internal and external barriers that prevent from choosing a healthier path to mental wellness. Group worked together to identify examples of personal internal pitfalls and pt identified theirs as holding emotions in, avoidance, and shutting down when overwhelmed. Pt benefited from group as Pt learned to better identify and normalize potential barriers to improving mental health symptoms. Pt will discharge from IOP tx today as pt has accomplished his tx goals and no longer meets criteria for IOP level of care. ?? Narrative Note: []
--- NOTE | 2023-06-20 11:20 | BH.SGPN.GN ---
Behaviors/Verbalizations/Mental Status: []Pt alert and oriented, casually dressed and groomed. Eye contact good. Motor activity appropriate. Speech within normal limits. Affect congruent. Mood euthymic. Thoughts linear, logical, no signs of hallucinations or delusions. Client Response/Progress/Benefit: []Pt was an active participant AEB contribution to discussion, taking notes, and willingness to engage in group activity. Connected with the topic of pitfalls and listened to group discussion on internal and external barriers that prevent from choosing a healthier path to mental wellness. Group worked together to identify examples of internal pitfalls. Pt identified personal pitfalls. Pt reported wanting to work on pitfall of holding emotions in. Pt identified strategies that can help him to include: journaling, affirming the way I feel, and I statements. Pt benefited from group as pt learned to better identify and normalize potential barriers to improving mental health symptoms. Pt has demonstrated significant treatment improvement and will discharge from [facility] today.
== END 2023-06-20 12:22 | disposition home or self-care (01) ==
LOC: BHIOP 08:20
PROVIDERS: PCP Internal Medicine; Referring Provider Psychiatry & Neurology Psychiatry; Visit Provider Psychiatry & Neurology Psychiatry
DX: F33.2 Major depressive disorder, recurrent severe without psychotic features (principal); F41.1 Generalized anxiety disorder; G47.33 Obstructive sleep apnea (adult) (pediatric); F12.90 Cannabis use, unspecified, uncomplicated
CPT/HCPCS: 99214; H2012; H2020; S9480; 90832

== ENCOUNTER → 2023-08-13 | Outpatient (CLI) | payer MEDICAID, SELFPAY ==
[2023-08-13 12:22] LABS: Hematocrit 40.4 % (40-54); Hemoglobin 13.2 g/dL (13.0-16.5); Mean Corp Hgb Conc 32.7 g/dL (32-36); Mean Corpuscular Hgb 33.5 pg (27.0-32.0); Mean Corpuscular Volume 102.5 fL (80-94); Mean Platelet Vol. 9.4 fl (6.2-12.0); Platelet Count 299 K/mm3 (150-450); RBC Distribution Width SD 45.4 fl (35.1-43.9); Red Blood Count 3.94 M/mm3 (4.6-6.2); White Blood Count 5.8 K/mm3 (4.4-11.0)
[2023-08-13 12:52] LABS: Anion Gap 5 (5-15); BUN 8 mg/dL (7-18); BUN/Creat Ratio 6.7 RATIO (10-20); Calcium,Total 8.5 mg/dL (8.5-10.1); Chloride 106 mmol/L (98-107); Cholesterol 121 mg/dL (200); Creatinine, Serum 1.19 mg/dL (0.70-1.30); EST Glomerular Filtration Rate 71 mL/min (>60); Est Glom Filt Rate - Afr Amer 86 mL/min (>60); Glucose 90 mg/dL (74-106); High Density Lipoprotein 46 mg/dL; Potassium 3.7 mmol/L (3.5-5.1); Sodium Level 138 mmol/L (136-145); Triglycerides 81 mg/dL; Very Low Density Lipoprotein 16 mg/dL (5-40)
[2023-08-13 13:30] LABS: Hepatitis C Antibody Non-Reactive (Nonreactive); Syphilis Antibodies Non-reactive
[2023-08-14 15:08] LABS: Absolute CD4 Helper 662 /uL (359-1519); Basophils (Absolute) 0 x10E3/uL (0.0-0.2); Eosinophils 3 % (Not Estab.); Eosinophils (Absolute) 0.2 x10E3/uL (0.0-0.4); Hematocrit 40.3 % (37.5-51.0); Hemoglobin 13.5 g/dL (13.0-17.7); Immature Granulocytes 0 % (Not Estab.); Immature Granulocytes Absolute 0 x10E3/uL (0.0-0.1); Lymphs 43 % (Not Estab.); Lymphs (Absolute) 2.4 x10E3/uL (0.7-3.1); MCH 33.4 pg (26.6-33.0); MCHC 33.5 g/dL (31.5-35.7); MCV 100 fL (79-97); Monocytes 15 % (Not Estab.); Monocytes (Absolute) 0.8 x10E3/uL (0.1-0.9); Neutrophils 38 % (Not Estab.); Neutrophils (Absolute) 2.1 x10E3/uL (1.4-7.0); Percent % CD4 Pos. Lymph. 27.6 % (30.8-58.5); Platelets 292 x10E3/uL (150-450); RBC Count 4.04 x10E6/uL (4.14-5.80); RDW 11.3 % (11.6-15.4); WBC Count 5.4 x10E3/uL (3.4-10.8)
[2023-08-15 01:07] LABS: HIV-1 RNA by PCR, Quant. < 20 copies/mL (.)
== END | disposition home or self-care (01) ==
LOC: MTLAB 11:14
PROVIDERS: PCP Internal Medicine; Referring Provider Internal Medicine Infectious Disease; Visit Provider Internal Medicine Infectious Disease
DX: B20 Human immunodeficiency virus [HIV] disease (principal)
CPT/HCPCS: 36415; 80048; 80061; 85027; 86361; 86780; 86803; 87536

== ENCOUNTER → 2023-10-24 | Outpatient (CLI) | payer MEDICAID, SELFPAY ==
[2023-10-24 13:02] LABS: PSA,Total - Annual Screen 0.85 ng/mL (0.00-4.00)
== END | disposition home or self-care (01) ==
PROVIDERS: PCP Internal Medicine; Referring Provider Internal Medicine; Visit Provider Internal Medicine
DX: Z00.00 Encounter for general adult medical examination without abnormal findings (principal)
CPT/HCPCS: 84153; 36415; G0103

== ENCOUNTER → 2024-01-01 | Outpatient (CLI) | payer MEDICAID, SELFPAY ==
[2024-01-01 12:31] LABS: Absolute Lymphocyte Count 2.47 X10^3/uL (0.83-4.51); Absolute Neutrophil Count 2.5 X10^3/uL (2.0-7.7); Basophil# 0.04 X10^3/uL; Basophil% 0.7 % (0-1); Eosinophil# 0.17 X10^3/uL; Eosinophils% 2.8 % (0-5); Hematocrit 42.1 % (40-54); Lymphocyte # 2.47 X10^3/ul (0.83-4.51); Mean Corp Hgb Conc 33.3 g/dL (32-36); Mean Corpuscular Hgb 33.1 pg (27.0-32.0); Mean Corpuscular Volume 99.5 fL (80-94); Mean Platelet Vol. 9.5 fl (6.2-12.0); Monocyte% 13.3 % (0-10); NRBC Flagged by Analyzer 0 % (0-5); Neutrophil # 2.53 X10^3/uL (2.7-7.7); Neutrophil % 41.9 % (47-70); Platelet Count 326 K/mm3 (150-450); RBC Distribution Width CV 12.3 % (11.6-14.6); RBC Distribution Width SD 44.5 fl (35.1-43.9); Red Blood Count 4.23 M/mm3 (4.6-6.2)
[2024-01-01 13:36] LABS: ALB/GLOB Ratio 0.9 RATIO (0.9-2.4); AST(SGOT) 37 U/L (15-37); Alanine Aminotransfer ALT/SGPT 44 U/L (16-61); Albumin, Serum 3.5 g/dL (3.2-5.0); Alkaline Phosphatase 78 U/L (45-117); Anion Gap 7 (5-15); BUN 9 mg/dL (7-18); BUN/Creat Ratio 6.8 RATIO (10-20); Calcium,Total 9.2 mg/dL (8.5-10.1); Chloride 103 mmol/L (98-107); Cholesterol 141 mg/dL (200); Creatinine, Serum 1.32 mg/dL (0.70-1.30); EST Glomerular Filtration Rate 63 mL/min (>60); Est Glom Filt Rate - Afr Amer 76 mL/min (>60); Globulin 4.1 g/dL (2.2-4.2); Glucose 79 mg/dL (74-106); Hepatitis C Antibody Non-Reactive (Nonreactive); High Density Lipoprotein 46 mg/dL; Potassium 3.6 mmol/L (3.5-5.1); Protein, Total 7.6 g/dL (6.4-8.2); Sodium Level 138 mmol/L (136-145); Syphilis Antibodies Non-reactive; Triglycerides 91 mg/dL; Very Low Density Lipoprotein 18 mg/dL (5-40)
[2024-01-03 06:09] LABS: HIV-1 RNA by PCR, Quant. < 20 copies/mL (.)
[2024-01-07 12:08] LABS: Absolute CD4 Helper 722 /uL (359-1519); Basophils (Absolute) 0 x10E3/uL (0.0-0.2); Eosinophils 3 % (Not Estab.); Eosinophils (Absolute) 0.2 x10E3/uL (0.0-0.4); Hematocrit 41.3 % (37.5-51.0); Hemoglobin 14.4 g/dL (13.0-17.7); Immature Granulocytes 0 % (Not Estab.); Immature Granulocytes Absolute 0 x10E3/uL (0.0-0.1); Lymphs 40 % (Not Estab.); Lymphs (Absolute) 2.4 x10E3/uL (0.7-3.1); MCH 33.5 pg (26.6-33.0); MCHC 34.9 g/dL (31.5-35.7); MCV 96 fL (79-97); Monocytes 13 % (Not Estab.); Monocytes (Absolute) 0.8 x10E3/uL (0.1-0.9); Neutrophils 43 % (Not Estab.); Neutrophils (Absolute) 2.5 x10E3/uL (1.4-7.0); Percent % CD4 Pos. Lymph. 30.1 % (30.8-58.5); Platelets 309 x10E3/uL (150-450); RDW 11.6 % (11.6-15.4); Testosterone, % Free 3.16 % (1.50-4.20); Testosterone, Free 16.59 ng/dL (5.00-21.00); Testosterone, Total 525 ng/dL (264-916); WBC Count 5.9 x10E3/uL (3.4-10.8)
== END | disposition home or self-care (01) ==
LOC: BIMLAB 08:30
PROVIDERS: PCP Internal Medicine; Referring Provider Internal Medicine Infectious Disease; Visit Provider Internal Medicine Infectious Disease
DX: B20 Human immunodeficiency virus [HIV] disease (principal); I10 Essential (primary) hypertension; N52.9 Male erectile dysfunction, unspecified
CPT/HCPCS: 36415; 80053; 80061; 84402; 84403; 85025; 86361; 86780; 86803; 87536

== ENCOUNTER → 2024-10-13 | Outpatient (CLI) | payer OTHER, SELFPAY ==
[2024-10-13 12:27] LABS: Absolute Lymphocyte Count 1.93 X10^3/uL (0.83-4.51); Basophil# 0.04 X10^3/uL; Basophil% 0.8 % (0-1); Eosinophil# 0.25 X10^3/uL; Eosinophils% 5.2 % (0-5); Hematocrit 39.6 % (40-54); Lymphocyte # 1.93 X10^3/ul (0.83-4.51); Lymphocyte % 40.5 % (19-41); Mean Corp Hgb Conc 32.8 g/dL (32-36); Mean Corpuscular Volume 100.5 fL (80-94); Mean Platelet Vol. 9.3 fl (6.2-12.0); Monocyte# 0.59 X10^3/uL; Monocyte% 12.4 % (0-10); NRBC Flagged by Analyzer 0 % (0-5); Neutrophil # 1.95 X10^3/uL (2.7-7.7); Neutrophil % 40.9 % (47-70); Platelet Count 303 K/mm3 (150-450); RBC Distribution Width CV 11.9 % (11.6-14.6); RBC Distribution Width SD 44.7 fl (35.1-43.9); Red Blood Count 3.94 M/mm3 (4.6-6.2); White Blood Count 4.8 K/mm3 (4.4-11.0)
[2024-10-13 12:32] LABS: ALB/GLOB Ratio 0.9 RATIO (0.9-2.4); AST(SGOT) 25 U/L (15-37); Alanine Aminotransfer ALT/SGPT 29 U/L (16-61); Albumin, Serum 3.1 g/dL (3.2-5.0); Alkaline Phosphatase 59 U/L (45-117); Anion Gap 2 (5-15); BUN 9 mg/dL (7-18); BUN/Creat Ratio 8.6 RATIO (10-20); Calcium,Total 8.5 mg/dL (8.5-10.1); Chloride 109 mmol/L (98-107); Creatinine, Serum 1.05 mg/dL (0.70-1.30); EST Glomerular Filtration Rate 82 mL/min (>60); Est Glom Filt Rate - Afr Amer 99 mL/min (>60); Globulin 3.5 g/dL (2.2-4.2); Glucose 107 mg/dL (74-106); Protein, Total 6.6 g/dL (6.4-8.2); Sodium Level 139 mmol/L (136-145)
[2024-10-14 13:07] LABS: Absolute CD4 Helper 553 /uL (359-1519); Basophils (Absolute) 0 x10E3/uL (0.0-0.2); Eosinophils 5 % (Not Estab.); Eosinophils (Absolute) 0.2 x10E3/uL (0.0-0.4); Hemoglobin 13.4 g/dL (13.0-17.7); Immature Granulocytes 0 % (Not Estab.); Immature Granulocytes Absolute 0 x10E3/uL (0.0-0.1); Lymphs 42 % (Not Estab.); Lymphs (Absolute) 1.9 x10E3/uL (0.7-3.1); MCHC 33.5 g/dL (31.5-35.7); MCV 102 fL (79-97); Monocytes 12 % (Not Estab.); Monocytes (Absolute) 0.6 x10E3/uL (0.1-0.9); Neutrophils 40 % (Not Estab.); Neutrophils (Absolute) 1.8 x10E3/uL (1.4-7.0); Percent % CD4 Pos. Lymph. 29.1 % (30.8-58.5); Platelets 295 x10E3/uL (150-450); RBC Count 3.94 x10E6/uL (4.14-5.80); RDW 11.3 % (11.6-15.4); WBC Count 4.4 x10E3/uL (3.4-10.8)
[2024-10-15 04:07] LABS: HIV-1 RNA by PCR, Quant. < 20 copies/mL (.)
== END | disposition home or self-care (01) ==
LOC: MTLAB 10:34
PROVIDERS: PCP Internal Medicine; Referring Provider Internal Medicine Infectious Disease; Visit Provider Internal Medicine Infectious Disease
DX: Z21 Asymptomatic human immunodeficiency virus [HIV] infection status (principal)
CPT/HCPCS: 36415; 80053; 85025; 86361; 87536

== ENCOUNTER → 2025-01-24 | Outpatient (CLI) | payer OTHER, SELFPAY ==
[2025-01-24 11:06] LABS: Anion Gap 9 (5-15); BUN 10 mg/dL (4-19); BUN/Creat Ratio 8.1 RATIO (10-20); Calcium,Total 8.8 mg/dL (7.6-11.0); Carbon Dioxide 23.6 mmol/L (21.0-32.0); Chloride 105 mmol/L (98-108); EST Glomerular Filtration Rate 76 (>60); Glucose 126 mg/dL (70-99); Potassium 3.7 mmol/L (3.3-5.1); Sodium Level 138 mmol/L (133-145)
== END | disposition home or self-care (01) ==
PROVIDERS: PCP Internal Medicine; Referring Provider Internal Medicine Nephrology; Visit Provider Internal Medicine Nephrology
DX: R10.9 Unspecified abdominal pain (principal)
CPT/HCPCS: 36415; 80048; 87086; 87088

== ENCOUNTER 2025-02-03 08:02 | Day surgery (SDC) | payer OTHER, SELFPAY ==
[2025-02-03] VITALS (7 sets, daily range): BP systolic 103–131; BP diastolic 67–91; PULSE 56–71; RESP 16–18; TEMP 36.2–36.4; O2SAT 98–99; BMI 33.5
[2025-02-03] MEDS: Lactated Ringers 1,000 ML 15 ML IV (08:26)
--- NOTE | 2025-02-03 08:33 | PCM.PRE.AN2 ---
ASA Classification* ASA Classification ASA Classification: 2 Assessment & Plan Anesthesia* Anesthesia Assessment Anesthesia Assessment: Discussed sedation and/or anesthesia options, risks, benefits, and alternatives with patient/parents/legal guardian/POA. Questions invited. The patient/parents/legal guardian/POA seems to understand and agrees to proceed with anesthesia plan. Reviewed the physical assessment, medical history, allergy history and patient home medications list prior to surgery/procedure/anesthetic and documented any changes. Performed airway and anesthesia risk assessments. Anesthesia Type Anesthesia Type: MAC History Source History Obtained from:: Patient and Chart Anesthesia Focused Assessment* Temperature: 97.2 F Pulse Rate: 62 Blood Pressure: 128/85 Respiratory Rate: 18 Pulse Ox: 99 Oxygen Delivery Method: Room Air Airway Assessment Mouth opens: >3 cm Mallampati Score: II Teeth Condition: Missing (Patient is missing couple of teeth. Rest are tight.) Neck Range of motion (ROM): Full ROM Focused Labs Anesthesia Preop lab: CBC WBC 4.4 x10E3/uL (3.4-10.8) 10/13/24 10:43 10/13/24 RBC 3.94 x10E6/uL (4.14-5.80) L 10/13/24 10:43 10/13/24 Hgb 13.4 g/dL (13.0-17.7) 10/13/24 10:43 10/13/24 Hct 40.0 % (37.5-51.0) 10/13/24 10:43 10/13/24 Plt Count 295 x10E3/uL (150-450) 10/13/24 10:43 10/13/24 CHEMISTRY Potassium 3.7 mmol/L (3.3-5.1) 01/24/25 10:11 01/24/25 Sodium 138 mmol/L (133-145) 01/24/25 10:11 01/24/25 Phosphorus 3.0 mg/dL (2.5-4.9) 05/01/23 10:43 05/01/23 BUN 10 mg/dL (4-19) 01/24/25 10:11 01/24/25 Creatinine 1.20 mg/dL (0.70-1.20) 01/24/25 10:11 01/24/25 Glucose 126 mg/dL (70-99) H 01/24/25 10:11 01/24/25 TSH 1.52 uIU/mL (0.358-3.74) 03/19/17 11:20 03/19/17 COAG Pre-Assessment Diagnosis/Proposed Procedure Planned Operative Procedure(s): colonoscopy Anesthesia History Anesthesia History - surgical services assistant: Anesthesia History - surgical services assistant Hx Hospitalization No 02/02/25 08:15 Any Problems With Anesthesia No 02/02/25 08:15 Cholinesterase deficiency No 02/02/25 08:15 You/Your Family Experience No 02/02/25 08:15 fever (hyperthermia) with Relationship Recent Exposure to Contagious No 02/03/25 08:26 Disease Does patient have nerve No 02/02/25 08:15 stimulator Patient instructed to have device shut off --Does patient have Pacemaker No 02/03/25 08:26 or ICD? When Was Last Pacemaker Check QUESTION #4 FULL TEXT: You/Your Family Experience fever (hyperthermia) with Anesthesia Last Oral Intake Last Oral intake: Last Oral Intake NPO since 21:00 02/03/25 08:26 Meds taken in AM with sips of No 02/03/25 08:26 water? Meds patient instructed to take am of surgery PONV PONV - surgical services assistant: PONV - surgical services assistant Female No 02/02/25 08:15 HX of Motion Sickness No 02/02/25 08:15 HX of N/V After Surgery No 02/02/25 08:15 Non-Smoker No 02/02/25 08:15 Duration of Surgery greater No 02/02/25 08:15 than 60 minutes Number of Risk Factors PONV Score Height & Weight Height & Weight: Anesthesia: Height & Weight Height 6 ft 3 in 02/03/25 08:26 Weight: 121.7 kg 02/03/25 08:26 Body Mass Index (BMI) 33.5 02/03/25 08:26 Respiratory Assessment Respiratory Assessment - surgical services assistant: Respiratory Tract Infection Hx - surgical services assistant Hx Respiratory Tract Infection No 02/02/25 08:15 STOP Sleep Apnea STOP Sleep Apnea - surgical services assistant: STOP Sleep Apnea - surgical services assistant Hx Hypertension Yes 02/02/25 08:15 Hx Sleep Apnea No 02/02/25 08:15 CPAP Yes 05/16/24 14:52 BIPAP No 02/21/24 14:52 Do you snore loudly (louder No 02/02/25 08:15 than talking or can be heard Do you often feel tired/ No 02/02/25 08:15 fatigued/ sleepy during daytime? Has anyone observed you stop No 02/02/25 08:15 breathing during sleep? STOP Results Negative 02/02/25 08:15 QUESTION #5 FULL TEXT : Do you snore loudly (louder than talking or can be heard through closed doors)? Tobacco Use History Tobacco Use History - surgical services assistant: Tobacco Use History - surgical services assistant Tobacco Use Smoking Status Light Smoker (<10/day) 02/02/25 08:15 Hx Tobacco Use Yes 02/02/25 08:15 Years Smoking Packs Smoked per Day Smoking Cessation Date was within the last 15 years Hx Smoking Cessation Date Hx Smoking Cessation Counseling Any additional information?: Yes Smoking Status: Current every day smoker (Patient did not smoke today.) Hematologic Medial History Hematologic Hx - surgical services assistant: Hematologic Medical Hx - engineer second assistant Hx of Blood Transfusion No 02/02/25 08:15 Hx of Transfusion in last 3 No 02/02/25 08:15 Months Date of Last Transfusion (if within last 3 months) Ever experience any problems No 02/02/25 08:15 with transfusion(s)? Specify any problems Hx of Preganancy in last 3 N/A 02/02/25 08:15 Months Nurse Filling Out Transfusion [facility] 02/02/25 08:15 & Questions: Date: 02/02/25 02/02/25 08:15 Time: 08:20 02/02/25 08:15 Patient unable to answer at this time (ie. confused, unrespo /Reproduction History /Reproductive History - surgical services assistant: /Reproductive Hx- surgical services assistant Hx Now Gestational Age (in weeks): EDC: Hx Hx Para Hx Section SAB No 02/21/24 14:52 Active Medications Active Medications: Current Medications Generic Name Dose Route Start Last Admin Trade Name Freq PRN Reason Stop Dose Admin Lactated Ringer's 1,000 mls @ 15 mls/hr 02/03/25 08:15 02/03/25 08:26 IV 15 mls/hr .Q48H ODALIS Administration PFSH Medical History Gastric reflux Sleep apnea Pain of right lower extremity Dental infection Erectile dysfunction Health care maintenance Hemorrhoids Preventative health care SSRI (selective serotonin reuptake inhibitor) causing adverse effect in therapeutic use DEBBI (generalized anxiety disorder) Major depressive disorder Intertriginous dermatitis associated with moisture Obesity Dermatitis fungal Flu vaccine need COVID-19 Tobacco abuse Neck swelling GERD (gastroesophageal reflux disease) Esophagitis Wears partial dentures Depression Anxiety Alcohol use Arthritis Smoker CPAP (continuous positive airway pressure) dependence Asthma Shortness of breath on exertion GERD (gastroesophageal reflux disease) Fatigue Attention deficit Insomnia Urticaria Dermatitis Human immunodeficiency virus (HIV) GERD (gastroesophageal reflux disease) Allergic rhinitis Essential hypertension Depressive disorder Hypertension Home Medications ?Medication ?Instructions ?Recorded ?Last Taken ?Type bictegravir 50 mg-emtricitabine 1 tab PO DAILY IMMUNE 06/30/21 Unknown History 200 mg-tenofovir alafenam 25 mg tablet (Biktarvy) colestipol 1 gram tablet 1 g PO BID #180 tabs 04/27/22 Unknown Rx metformin 500 mg tablet,extended 500 mg PO DAILY #90 tabs 02/19/23 Unknown Rx release 24 hr hydrocortisone 2.5 % topical cream 1 applic RI BID-QID PRN 12/11/23 Unknown Rx with perineal applicator hemorrhoids #30 grams albuterol sulfate 90 mcg/actuation 1 - 2 puff inhalation Q6H PRN 12/21/23 Unknown Rx aerosol inhaler (ProAir HFA) shortness of breath or wheezing #8.5 grams meloxicam 15 mg tablet 15 mg PO DAILY PRN pain #90 tabs 06/11/24 Unknown Rx buspirone 10 mg tablet See Rx Instructions .Route 06/30/24 Unknown Rx .COMPLEX #180 tabs metoprolol succinate 25 mg See Rx Instructions .Route 11/12/24 02/02/25 Rx tablet,extended release 24 hr .COMPLEX #90 tabs hydrochlorothiazide 25 mg tablet 25 mg PO DAILY #90 tabs 11/26/24 Unknown Rx bupropion HCl 300 mg 24 hr tablet, 300 mg PO QAM #90 tabs 12/15/24 Unknown Rx extended release trazodone 150 mg tablet 150 mg PO QHS #90 tabs 12/15/24 Unknown Rx vortioxetine 20 mg tablet 20 mg PO DAILY #90 tabs 12/15/24 Unknown Rx lisinopril 40 mg tablet 40 mg PO QDAY #90 tabs 12/18/24 Unknown Rx montelukast 10 mg tablet 10 mg PO QHS PRN allergies 12/24/24 Unknown History (Singulair) tirzepatide (weight loss) 2.5 2.5 mg (0.5 mL) subcut QWEEK #2 mL 12/31/24 01/18/25 Rx mg/0.5 mL subcutaneous pen injector (Zepbound) omeprazole 40 mg capsule,delayed 40 mg PO DAILY #90 caps 01/06/25 Unknown Rx release hydralazine 25 mg tablet 25 mg PO TID 90 days #270 tabs 01/19/25 Unknown Rx hydralazine 50 mg tablet 50 mg PO TID 90 days #270 tabs 01/19/25 Unknown Rx sildenafil 100 mg tablet 50 - 100 mg (0.5 - 1 x 100 mg) PO 01/19/25 Unknown Rx DAILY PRN sexual activity #10 tabs Allergy/AdvReac Type Severity Reaction Status Date / Time sulfamethoxazole (From Allergy Mild rash Verified 02/03/25 08:24 Bactrim) trimethoprim (From Bactrim) Allergy Mild rash Verified 02/03/25 08:24 Family History Mother Diabetes Hypertension Surgical History History of esophagogastroduodenoscopy (EGD) History of wisdom tooth extraction Social History Smoking Status: Current every day smoker (Patient did not smoke today.) tobacco type: cigarettes quit status: considering quitting alcohol intake: current alcohol intake frequency: holidays/special occasions only Review of Systems (Anesthesia) ROS Narrative System reviewed and no additional complaints, except as documented.
--- NOTE | 2025-02-03 09:00 | PCM.HP.BLA ---
History and Physical Date of Admission: 02/03/25 Intake Vital Signs 12/24/2510:07 12/31/2508:43 Height 6 ft 3 in 6 ft 3 in Weight: 272 lb 280 lb BMI 34.0 34.9 BP 114/80 121/74 H Blood Pressure Location Lt brachial Rt brachial Position Sitting Sitting Respiration 16 17 Pulse 71 62 Pulse Source Monitor Monitor Temp 97.4 F L Temp Source Temporal Pulse Oximetry (%) 98 99 Oxygen Delivery Method room air room air Intake Visit Reasons: HEMORRHOIDS Chief Complaint: hemorrhoids Is patient in pain?: No Allergies sulfamethoxazole (From Bactrim) Allergy (Mild, Verified 12/31/24 09:44) rashtrimethoprim (From Bactrim) Allergy (Mild, Verified 12/31/24 09:44) rash Medications ?Medication ?Instructions ?Recorded ?Confirmed ?Type bictegravir 50 mg-emtricitabine 1 tab PO DAILY IMMUNE 06/30/21 12/31/24 History 200 mg-tenofovir alafenam 25 mg tablet (Biktarvy) colestipol 1 gram tablet 1 g PO BID #180 tabs 04/27/22 12/31/24 Rx metformin 500 mg tablet,extended 500 mg PO DAILY #90 tabs 02/19/23 12/31/24 Rx release 24 hr hydrocortisone 2.5 % topical cream 1 applic [place] BID-QID PRN 12/11/23 12/31/24 Rx with perineal applicator hemorrhoids #30 grams albuterol sulfate 90 mcg/actuation 1 - 2 puff inhalation Q6H PRN 12/21/23 12/31/24 Rx aerosol inhaler (ProAir HFA) shortness of breath or wheezing #8.5 grams meloxicam 15 mg tablet 15 mg PO DAILY PRN pain #90 tabs 06/11/24 12/31/24 Rx omeprazole 40 mg capsule,delayed 40 mg PO DAILY #90 caps 06/27/24 12/31/24 Rx release buspirone 10 mg tablet See Rx Instructions .Route 06/30/24 12/31/24 Rx .COMPLEX #180 tabs hydralazine 25 mg tablet 25 mg PO TID 90 days #270 tabs 07/21/24 12/31/24 Rx hydralazine 50 mg tablet 50 mg PO TID 90 days #270 tabs 07/21/24 12/31/24 Rx sildenafil 100 mg tablet 50 - 100 mg (0.5 - 1 x 100 mg) PO 09/15/24 12/31/24 Rx DAILY PRN sexual activity #10 tabs metoprolol succinate 25 mg See Rx Instructions .Route 11/12/24 12/31/24 Rx tablet,extended release 24 hr .COMPLEX #90 tabs hydrochlorothiazide 25 mg tablet 25 mg PO DAILY #90 tabs 11/26/24 12/31/24 Rx bupropion HCl 300 mg 24 hr tablet, 300 mg PO QAM #90 tabs 12/15/24 12/31/24 Rx extended release trazodone 150 mg tablet 150 mg PO QHS #90 tabs 12/15/24 12/31/24 Rx vortioxetine 20 mg tablet 20 mg PO DAILY #90 tabs 12/15/24 12/31/24 Rx lisinopril 40 mg tablet 40 mg PO QDAY #90 tabs 12/18/24 12/31/24 Rx montelukast 10 mg tablet 10 mg PO QHS PRN 12/24/24 12/31/24 History (Singulair) PFSH Medical History Pain of right lower extremity Dental infection Erectile dysfunction Health care maintenance Hemorrhoids Preventative health care SSRI (selective serotonin reuptake inhibitor) causing adverse effect in therapeutic use DEBBI (generalized anxiety disorder) Major depressive disorder Intertriginous dermatitis associated with moisture Obesity Dermatitis fungal Flu vaccine need COVID-19 Tobacco abuse Neck swelling GERD (gastroesophageal reflux disease) Esophagitis Wears partial dentures Depression Anxiety Alcohol use Arthritis Smoker CPAP (continuous positive airway pressure) dependence Asthma Shortness of breath on exertion GERD (gastroesophageal reflux disease) Fatigue Attention deficit Insomnia Urticaria Dermatitis Human immunodeficiency virus (HIV) GERD (gastroesophageal reflux disease) Allergic rhinitis Essential hypertension Depressive disorder Hypertension Surgical History History of wisdom tooth extraction Family History Mother Diabetes Hypertension Social History (Updated 12/31/24 @ 09:43 by Shaye Meza) Smoking Status: Current every day smoker tobacco type: cigarettes quit status: considering quitting alcohol intake: current alcohol intake frequency: holidays/special occasions only HPI HPI HPI: Patient is a 44-year-old male who is here with blood in his stool. He says this happens occasionally. It has been happening for several years. He attributes it to hemorrhoids. He has been on a steroid cream. He reports no pain with bowel movements. He does have hard stool sometimes. He reports that he has bowel movements every day. He has never had a colonoscopy in the past. ROS General General: No weight change, appetite, fatigue, colon cancer, breast cancer or weakness HEENT HEENT: No difficulty swallowing, eye injury, eye surgery, swollen glands or hoarseness Endo Endocrine: No thyroid disease, diabetes mellitus, thyroid cancer, Hair loss, heat intolerance or cold intolerance Skin Skin: No rash or changing moles Musc Musculoskeletal: Yes arthritis; No back problems, rheumatoid arthritis, gout or joint pain Cardio Cardiovascular: Yes high blood pressure; No murmur, pacemaker, heart disease, atrial fibrillation, heart attack, heart stent, palpitations, shortness of breath with exertion or chest pain Psych Psychiatric: No depression, anxiety or hearing voices Resp Respiratory: No shortness of breath, Yes sleep apnea, No cough, No COPD, No asthma, No emphysema and No wheezing Additional Details: c pap Gastro Gastrointestinal: No abdominal pain, No nausea or vomiting, No diarrhea, No constipation, Yes blood in stool, Yes acid reflux, Yes hemorrhoids, No ulcers, No gallbladder problem and No black,tarry stools Romel Hematologic: No blood thinners, No blood disorders, No bleeding, No anemia and No blood clots Neuro Neurologic: No system reviewed and no additional complaints, except as documented, No as per HPI, No abnormal gait, No abnormal hearing, No abnormal movements, No abnormal speech, No behavioral changes, No burning sensations, No confusion, No convulsions, No disequilibrium, No dizziness, No localized weakness, No frequent falls, No headache(s), No lack of coordination, No loss of vision, No memory loss, No numbness, No other visual disturbances, No radicular pain, No restless legs, No sensory deficit, No syncope, No tingling, No tremor(s), No weakness and No other Exam Const General: cooperative Orientation: alert and oriented x3 HENMT Head: normal to inspection Neck Neck: normal visual inspection and full ROM Chest Chest palpation & inspection: normal inspection of the chest Resp Effort & Inspection: normal respiratory effort Auscultation: clear to auscultation bilaterally Cardio Rate: regular rate Rhythm: regular rhythm GI Inspection: non-distended Palpation: soft and nontender Skin General: no rashes or lesions noted Neuro General: patient alert and patient oriented x3 Extrem General: full ROM Psych Appearance: grossly normal Mental Status: mental status grossly normal Assessment and Plan Assessment and Plan (1) Rectal bleeding: Status: Acute Plan: Patient is having blood with his stool occasionally. He says it does possibly coincide with hard stools. I prescribed and Colace to try to soften his stools and help with the bleeding. I would also like to complete a colonoscopy to evaluate for bleeding. I explained endoscopy in detail to the patient. I explained the risks including but not limited to stroke or heart attack with anesthesia, perforation of the GI tract, bleeding, infection. I explained that any of these could necessitate further emergency surgery. The patient understands and all questions were answered sufficiently. The patient wishes to proceed with procedure. Spencer Duff MD Pager: [facility] [address] [place] [address] [address] [place] [address] Office: I have examined the patient and the H&P has been reviewed. There are no clinical changes since date of exam.
--- NOTE | 2025-02-03 09:42 | PCM.POST.ANE ---
Anesthesia: Postop Eval I Current Vital Signs Temperature: 97.5 F Pulse Rate: 71 Blood Pressure: 103/91 Respiratory Rate: 16 Pulse Ox: 98 Oxygen Delivery Method: Room Air Assessment Airway patent: Yes Spontaneous unlabored respirations: Yes Mental status: Awake and Calm nausea: No Vomiting: No Anesthesia Complication: No Fluid Hydration Crystalloid volume administer (ml): 500 Total IV fluid infused: 500 Progress Note Anesthesia document: Postop Eval 1 completed: Yes
--- NOTE | 2025-02-03 10:06 | OP.CCLET_ITS ---
02/03/2025 Malathi Perez MD [address] [place] [address] [place] [address] Re : Colonoscopy procedure for Victor Hugo Smithmars Dear Dr. Perez This procedure was performed on Monday, February 03, 2025. My impressions and recommendations are as follows: Impressions : - Non-bleeding internal hemorrhoids. - The examination was otherwise normal on direct and retroflexion views. - No specimens collected. Recommendations : - Discharge patient to home. - Resume previous diet. - Continue present medications. - Repeat colonoscopy in 10 years for screening purposes. My findings are described in the full procedure note, which is enclosed. If I can be of further assistance, please feel free to contact me at Doctor phone number(s): , Work: . Sincerely, Spencer Duff MD 02/03/2025 10:05:34 AM This report has been signed electronically.
--- NOTE | 2025-02-03 10:06 | OP.COLON_ITS ---
Patient Name: Victor Hugo Edward Procedure Date: 02/03/2025 9:10 AM Date of : 1980 Age: 44 Procedure: Colonoscopy Indications: Rectal bleeding Providers: Spencer Duff MD Referring MD: Malathi Perez MD Medicines: Propofol per Anesthesia Patient Profile: This is a 44 year old male. Refer to note in patient chart for documentation of history and physical. Last Colonoscopy: more than 3 years ago. Complications: No immediate complications. Procedure: Pre-Anesthesia Assessment: - Prior to the procedure, a History and Physical was performed, and patient medications and allergies were reviewed. The patient's tolerance of previous anesthesia was also reviewed. The risks and benefits of the procedure and the sedation options and risks were discussed with the patient. All questions were answered, and informed consent was obtained. Prior Anticoagulants: The patient has taken no anticoagulant or antiplatelet agents. After reviewing the risks and benefits, the patient was deemed in satisfactory condition to undergo the procedure. After I obtained informed consent, the scope was passed under direct vision. Throughout the procedure, the patient's blood pressure, pulse, and oxygen saturations were monitored continuously. The Colonoscope was introduced through the anus and advanced to the cecum, identified by appendiceal orifice and ileocecal valve. The colonoscopy was performed without difficulty. The patient tolerated the procedure well. The quality of the bowel preparation was good. The ileocecal valve, appendiceal orifice, and rectum were photographed. Scope In: 9:20:23 AM Scope Withdrawal Time 0 hours 4 minutes 34 seconds Scope Out: 9:30:15 AM Total Procedure Duration Time 0 hours 9 minutes 52 seconds Findings: Non-bleeding internal hemorrhoids were found during retroflexion. The exam was otherwise without abnormality on direct and retroflexion views. Impression: - Non-bleeding internal hemorrhoids. - The examination was otherwise normal on direct and retroflexion views. - No specimens collected. Recommendation: - Discharge patient to home. - Resume previous diet. - Continue present medications. - Repeat colonoscopy in 10 years for screening purposes. Procedure Code(s): --- Professional --- 15059, Colonoscopy, flexible; diagnostic, including collection of specimen(s) by brushing or washing, when performed (separate procedure) Diagnosis Code(s): --- Professional --- K64.8, Other hemorrhoids K62.5, Hemorrhage of anus and rectum CPT copyright 2021 [employer]. All rights reserved. The codes documented in this report are preliminary and upon compliance clerk review may be revised to meet current compliance requirements. Spencer Duff MD 02/03/2025 10:05:34 AM This report has been signed electronically. Number of Addenda: 0 Note Initiated On: 02/03/2025 9:10 AM
--- NOTE | 2025-02-03 13:12 | PCM.POSTANE2 ---
Anesthesia Postop Eval I Sum Postop Eval Completion status Anesthesia document: Postop Eval 1 completed: Yes Anesthesia Postop Eval I Summary Anesthesia Postop Eval I Summary: Anesthesia Postop Eval I: Assessment Summary Airway patent Yes 02/03/25 09:43 [email or web address] Spontaneous unlabored Yes 02/03/25 09:43 [email or web address] respirations Mental status Awake,Calm 02/03/25 09:43 [email or web address] nausea No 02/03/25 09:43 [email or web address] Vomiting No 02/03/25 09:43 [email or web address] Anesthesia Postop Eval I: Fluid Summary Crystalloid volume administer 500 02/03/25 09:43 [email or web address] (ml) Colloids volume administered ( ml) Blood Product volume administered (ml) Total IV fluid infused 500 02/03/25 09:43 [email or web address] Anesthesia Postop Eval I: Summary Notes Anesthesia Complication No 02/03/25 09:43 [email or web address] Anesthesia Complication Comment: Post-operative progress note Anesthesia: Postop Eval II Evaluation Mental status: Awake and Calm Pain Level: 0 nausea: No Vomiting: No Complications Anesthesia Complication: No
== END 2025-02-03 10:15 | disposition home or self-care (01) ==
LOC: EN 08:03 → AC 08:04
PROVIDERS: PCP Internal Medicine; Referring Provider Internal Medicine; Visit Provider Surgery
PROC: 0DJD8ZZ Inspection of Lower Intestinal Tract, Via Natural or Artificial Opening Endoscopic (ICD-10-PCS; CPT 45378; principal; 2025-02-03 09:10)
DX: K62.5 Hemorrhage of anus and rectum (principal); K64.8 Other hemorrhoids; I10 Essential (primary) hypertension; K21.9 Gastro-esophageal reflux disease without esophagitis; Z79.899 Other long term (current) drug therapy; F32.A Depression, unspecified; F17.210 Nicotine dependence, cigarettes, uncomplicated
CPT/HCPCS: 45378; J2405

== ENCOUNTER → 2025-05-11 | Outpatient (CLI) | payer OTHER, SELFPAY ==
[2025-05-11 15:28] LABS: Hematocrit 40.3 % (40-54); Hemoglobin 13.7 g/dL (13.0-16.5); Immature Granulocytes Count 0.010 X10^3/uL (0.0-0.0); Mean Corp Hgb Conc 34.0 g/dL (32-36); Mean Corpuscular Volume 100.2 fL (80-94); Mean Platelet Vol. 9.7 fl (6.2-12.0); NRBC Flagged by Analyzer 0 % (0-5); Platelet Count 303 K/mm3 (150-450); RBC Distribution Width CV 12.1 % (11.6-14.6); RBC Distribution Width SD 44.6 fl (35.1-43.9); Red Blood Count 4.02 M/mm3 (4.6-6.2); White Blood Count 4.2 K/mm3 (4.4-11.0)
[2025-05-11 16:22] LABS: AST(SGOT) 30 U/L (<=37); Alanine Aminotransfer ALT/SGPT 21 U/L (<=46); Albumin, Serum 3.7 g/dL (3.5-5.0); Alkaline Phosphatase 64 U/L (40-129); Anion Gap 8 (5-15); BUN 9 mg/dL (4-19); BUN/Creat Ratio 8.0 RATIO (10-20); Calcium,Total 8.5 mg/dL (7.6-11.0); Carbon Dioxide 26.1 mmol/L (21.0-32.0); Chloride 105 mmol/L (98-108); Globulin 2.7 g/dL (2.2-4.2); Glucose 97 mg/dL (70-99); Potassium 4.2 mmol/L (3.3-5.1); Syphilis Antibodies Nonreactive (Nonreactive)
[2025-05-11 16:46] LABS: Cholesterol 125 mg/dL (<=200); Low Density Lipoprotein Calc. 61 mg/dL; Triglycerides 46 mg/dL; Very Low Density Lipoprotein 9 mg/dL (5-40); cholesterol:hdl ratio screen 2.30
[2025-05-13 16:09] LABS: Hematocrit 43.2 % (37.5-51.0); Hemoglobin 14.1 g/dL (13.0-17.7); MCH 34.2 pg (26.6-33.0); MCHC 32.6 g/dL (31.5-35.7); MCV 105 fL (79-97); Percent % CD4 Pos. Lymph. 26.1 % (30.8-58.5); RDW 11.2 % (11.6-15.4)
[2025-05-14 13:08] LABS: HIV-1 RNA by PCR, Quant. < 20 copies/mL (.)
== END | disposition home or self-care (01) ==
LOC: BIMLAB 13:08
PROVIDERS: PCP Internal Medicine; Visit Provider Internal Medicine Infectious Disease
DX: Z21 Asymptomatic human immunodeficiency virus [HIV] infection status (principal); I10 Essential (primary) hypertension
CPT/HCPCS: 36415; 80053; 80061; 85025; 86361; 86780; 87491; 87536; 87591

== ENCOUNTER → 2025-10-05 | Outpatient (CLI) | payer OTHER, SELFPAY ==
[2025-10-05 15:10] LABS: Hematocrit 42.5 % (40-54); Hemoglobin 14.7 g/dL (13.0-16.5); Immature Granulocytes Count 0.010 X10^3/uL (0.0-0.0); Mean Corp Hgb Conc 34.6 g/dL (32-36); Mean Corpuscular Volume 98.8 fL (80-94); Mean Platelet Vol. 9.6 fl (6.2-12.0); NRBC Flagged by Analyzer 0 % (0-5); Platelet Count 272 K/mm3 (150-450); RBC Distribution Width CV 11.8 % (11.6-14.6); RBC Distribution Width SD 43.0 fl (35.1-43.9); Red Blood Count 4.30 M/mm3 (4.6-6.2); White Blood Count 4.3 K/mm3 (4.4-11.0)
[2025-10-05 15:26] LABS: AST(SGOT) 36 U/L (<=37); Alanine Aminotransfer ALT/SGPT 21 U/L (<=46); Albumin, Serum 3.9 g/dL (3.5-5.0); Alkaline Phosphatase 63 U/L (40-129); Anion Gap 9 (7-18); BUN 13 mg/dL (4-19); BUN/Creat Ratio 10.8 RATIO (10-20); Calcium,Total 8.9 mg/dL (7.6-11.0); Carbon Dioxide 27.1 mmol/L (20.0-29.0); Chloride 104 mmol/L (96-106); Globulin 3.2 g/dL (2.2-4.2); Glucose 77 mg/dL (70-99); Potassium 4.0 mmol/L (3.5-5.1)
== END | disposition home or self-care (01) ==
LOC: MTLAB 12:46
PROVIDERS: PCP Internal Medicine; Referring Provider Internal Medicine; Visit Provider Internal Medicine
DX: I10 Essential (primary) hypertension (principal)
CPT/HCPCS: 36415; 80053; 85025

== ENCOUNTER → 2025-10-06 | Outpatient (CLI) | payer OTHER, SELFPAY ==
[2025-10-06 17:50] LABS: Hematocrit 41.3 % (40-54); Hemoglobin 14.2 g/dL (13.0-16.5); Immature Granulocytes Count 0.020 X10^3/uL (0.0-0.0); Mean Corp Hgb Conc 34.4 g/dL (32-36); Mean Corpuscular Volume 99.0 fL (80-94); Mean Platelet Vol. 9.4 fl (6.2-12.0); NRBC Flagged by Analyzer 0 % (0-5); Platelet Count 286 K/mm3 (150-450); RBC Distribution Width CV 11.8 % (11.6-14.6); RBC Distribution Width SD 42.8 fl (35.1-43.9); Red Blood Count 4.17 M/mm3 (4.6-6.2); White Blood Count 4.7 K/mm3 (4.4-11.0)
[2025-10-06 18:23] LABS: AST(SGOT) 30 U/L (<=37); Alanine Aminotransfer ALT/SGPT 26 U/L (<=46); Albumin, Serum 4.0 g/dL (3.5-5.0); Alkaline Phosphatase 63 U/L (40-129); Anion Gap 9 (7-18); BUN 12 mg/dL (4-19); BUN/Creat Ratio 9.5 RATIO (10-20); Calcium,Total 9.0 mg/dL (7.6-11.0); Carbon Dioxide 25.5 mmol/L (20.0-29.0); Chloride 104 mmol/L (96-106); Cholesterol 162 mg/dL (<=200); Globulin 3.3 g/dL (2.2-4.2); Glucose 79 mg/dL (70-99); Potassium 4.1 mmol/L (3.5-5.1); Triglycerides 83 mg/dL
[2025-10-09 17:08] LABS: HIV-1 RNA by PCR, Quant. < 20 copies/mL (.)
== END | disposition home or self-care (01) ==
LOC: MTLAB 13:27
PROVIDERS: PCP Internal Medicine; Referring Provider Internal Medicine Infectious Disease; Visit Provider Internal Medicine Infectious Disease
DX: B20 Human immunodeficiency virus [HIV] disease (principal)
CPT/HCPCS: 36415; 80053; 82465; 84478; 85025; 86361; 87536